=== PATIENT | female | born 1965 | race Caucasian/White ===

== ENCOUNTER → 2016-06-08 | Outpatient (CLI) | payer BC ==
--- NOTE | 2016-06-09 10:59 | ECHOF ---
Referral Reason:R01.1 Cardiac murmur, unspecified MEASUREMENTS -------- HEIGHT: 157.5 cm WEIGHT: 72.6 kg BP: RVIDd: 2.4 cm (< 3.3) IVSd: 1.0 cm (0.6 - 1.1) LVIDd: 4.1 cm (3.9 - 5.3) LVPWd: 0.9 cm (0.6 - 1.1) IVSs: 1.1 cm LVIDs: 3.5 cm LVPWs: 0.9 cm LA Diam: 3.0 cm (2.7 - 3.8) LAESV Index (A-L): 26.68 ml/m Ao Diam: 2.3 cm (2.0 - 3.7) AV Cusp: 1.7 cm (1.5 - 2.6) LA Diam: 3.6 cm (2.7 - 3.8) MV EXCURSION: 15.488 mm (> 18.000) MV EF SLOPE: 145 mm/s (70 - 150) EPSS: 0.4 cm MV E Osman: 0.92 m/s MV DecT: 169 ms MV A Osman: 0.68 m/s MV E/A Ratio: 1.36 RAP: 5.00 mmHg RVSP: 16.46 mmHg FINDINGS -------- Sinus rhythm. This was a technically good study. . There is normal global left ventricular contractility. Overall left ventricular systolic function is low-normal with, an EF between 50 - 55 %. The right ventricle is normal in size. LA is moderately dilated 34-39 ml/m2 The right atrial size is normal. There is mild aortic valve sclerosis. There is no evidence of aortic regurgitation. Mild mitral annular calcification present. Mild mitral regurgitation is present. Mild tricuspid regurgitation present. There is no evidence of pulmonary hypertension. The right ventricular systolic pressure, as measured by Doppler, is 16.46mmHg. There is no pulmonic regurgitation present. The aortic root size is normal. There is no pericardial effusion. CONCLUSIONS -------- 1. LV size, wall thickness and systolic function are normal, with an EF greater than 55%. 2. LA is moderately dilated 34-39 ml/m2 3. There is mild aortic valve sclerosis. 4. Mild mitral annular calcification present. 5. Mild mitral regurgitation is present. 6. Mild tricuspid regurgitation present. 7. There is no evidence of pulmonary hypertension. 8. The right ventricular systolic pressure, as measured by Doppler, is 16.46mmHg. SUPERINTENDENT QUARRY: Giuliana Velásquez RDCS
== END | disposition home or self-care (01) ==
LOC: RADECHMAIN 15:09
PROVIDERS: ATTEND Family Medicine
DX: I08.1 Rheumatic disorders of both mitral and tricuspid valves (principal); I70.0 Atherosclerosis of aorta
CPT/HCPCS: 93306

== ENCOUNTER → 2016-07-18 | Outpatient (CLI) | payer BC ==
--- NOTE | 2016-07-18 16:12 | XR ---
EXAMINATION TYPE: XR chest 2V DATE OF EXAM: 07/18/2016 3:53 PM COMPARISON: 02/10/2010 TECHNIQUE: PA and lateral views submitted. HISTORY: Cough FINDINGS: The lungs are clear and there is no pneumothorax, pleural effusion, or focal pneumonia. Hypertrophi c change of the spine noted. IMPRESSION: 1. No acute process.
--- NOTE | 2016-07-19 08:44 | BD ---
EXAMINATION TYPE: MG DEXA axial skeleton. DATE OF EXAM: 07/18/2016 4:10 PM COMPARISON: NONE CLINICAL HISTORY: Postmenopausal female. Height: 61.5 IN Weight: 169 LBS FRAX RISK QUESTIONS: Alcohol (3 or more units per day): NO Family History (Parent hip fracture): NO Glucocorticoids (More than 3mos): YES (Ex: prednisone, prednisolone, methylprednisolone, dexamethasone, and hydrocortisone). History of Fracture in Adulthood: NO Secondary Osteoporosis: 1. Type 1 Diabetes: NO 2. Hyperthyroidism: NO 3. Menopause before 45: NO 4. Malnutrition: NO 5. Chronic liver disease: NO Rheumatoid Arthritis: NO Current Tobacco Use: NO RISK FACTORS HISTORY OF: Active: YES Diet low in dairy products/other sources of calcium: YES If Premenopausal, do you have irregular periods: NO Take estrogen and/or progesterone medications: YES How long: NUVA RING 10 MONTHS MEDICATIONS: Prednisone or other steroids: YES 10 MG DAILY How Lon YRS Additional Medications: PREDNISONE, LISINOPRIL, HCTZ, EXAM MEASUREMENTS: Bone mineral densitometry was performed using the [employer] System. Bone mineral density as measured about the Lumbar spine is: ----- L1-L4(G/cm2): 1.334 T Score Values are as follows: ----- L2: 1.3 ----- L3: 1.1 ----- L4: 1.4 ----- L1-L4: 1.3 Bone mineral density BASELINE Bone mineral density about the R hip (g/cm2): 1.107 Bone mineral density about the L hip (g/cm2): 1.107 T Score values are as follows: -----R Neck: 0.5 -----L Neck: 0.5 -----R Intertrochanter: 0.6 -----L Intertrochanter: 1.1 Bone mineral density BASELINE IMPRESSION: Normal (Values between +1 and -1 indicate normal bone mass) NOTE: T-SCORE=SD OF THE YOUNG ADULT MEAN.
== END | disposition home or self-care (01) ==
LOC: RADBDWWP 15:34
PROVIDERS: ATTEND Internal Medicine Rheumatology
DX: R05 Cough (principal); M19.90 Unspecified osteoarthritis, unspecified site; Z79.899 Other long term (current) drug therapy; M81.0 Age-related osteoporosis without current pathological fracture
CPT/HCPCS: 71020; 77080

== ENCOUNTER → 2016-07-28 | Outpatient (CLI) | payer BC ==
--- NOTE | 2016-07-28 23:30 | MR ---
EXAMINATION TYPE: MR pelvis wo con DATE OF EXAM: 07/28/2016 9:04 PM COMPARISON: NONE HISTORY: Low back/yvette hip pain, OA Standard multiplanar, multisequence MRI departmental protocol Multiplanar, multisequence images of the pelvis were acquired. FINDINGS: The pelvic ring appears intact. The proximal femurs and hip joints are intact. There is no sign of avascular necrosis. The sacroiliac joints appear normal. There is no evidence of a pelvic mas s. There is no free fluid in the pelvis. Sacrum appears normal. I see no bony destructive process. Ur inary bladder and uterus appear normal. There is mild symmetric acetabular spurring. IMPRESSION: Mild acetabular spurring. No fracture. No evidence of avascular necrosis or hip dysplasia.
== END | disposition home or self-care (01) ==
LOC: RADMRIMAIN 20:02
PROVIDERS: ATTEND Internal Medicine Rheumatology
DX: M77.9 Enthesopathy, unspecified (principal); M19.90 Unspecified osteoarthritis, unspecified site
CPT/HCPCS: 72195

== ENCOUNTER → 2016-08-30 | Outpatient (CLI) | payer BC ==
--- NOTE | 2016-08-30 09:24 | MM ---
Reason for exam: screening (asymptomatic). Last mammogram was performed 1 year ago. History: Family history of breast cancer in 2 maternal aunts. Took hormonal contraceptives for 6 years 1 month beginning at age 38. Physical Findings: A clinical breast exam by your physician is recommended on an annual basis and results should be correlated with mammographic findings. MG Screening Mammo w CAD Bilateral CC and MLO view(s) were taken. Prior study comparison: August 24, 2015, bilateral MG screening mammo w CAD. May 19, 2014, bilateral MG diagnostic mammo w CAD TENZIN. The breast tissue is heterogeneously dense. This may lower the sensitivity of mammography. No suspicious calcifications are seen. Stable retroareolar nodularity. ASSESSMENT: Benign, BI-RAD 2 RECOMMENDATION: Routine screening mammogram of both breasts in 1 year.
--- NOTE | 2016-08-30 10:03 | WWHP ---
DATE OF SERVICE: 08/30/2016 CHIEF COMPLAINT: The patient is here for her routine gynecologic exam and mammogram. HPI: This is a 51-year-old G5, P5 with an LMP of 08/11/16. She has been on the NuvaRing for about one year. She has used this for hypermenorrhea and control. She states she has done well with it. Her periods are less heavy with the NuvaRing. She is without complaints. PAST MEDICAL HISTORY: Polymyalgia rheumatica and possible ankylosing spondylitis. Also chronic hypertension and history of asthma, currently not requiring medication. MEDICATIONS: 1. Humira injections q.2 weeks, which was recently started. 2. She is weaning off of prednisone and is on 5 mg per day at this time. 3. Lisinopril 1 daily. 4. Calcium supplement daily. 5. NuvaRing as directed. Allergies to CT SCAN DYE. Past surgical, PATIENT MONITOR, and family histories are unchanged from the 2016 H&P. SOCIAL HISTORY: She denies tobacco and drug use and has about 3 alcoholic drinks every 2 weeks. 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 REVIEW OF SYSTEMS: Weight has been stable. She denies respiratory or cardiac problems. She has had chronic diarrhea for several years. PHYSICAL EXAM: Blood pressure 126/74. Height 5 feet 2 inches. Weight 176 pounds. Temperature 96.6, pulse 81. This a well-developed, well-nourished white female who is alert and oriented x3 in no acute distress. HEENT is within normal limits. NECK: Supple without mass or thyromegaly. CHEST AND LUNGS: Clear to auscultation. HEART: Regular rate and rhythm. Breasts are without mass or discharge. Axillary exam is negative for adenopathy. BACK: Negative for CVA tenderness. ABDOMEN: Soft, nontender, without palpable masses. PELVIC EXAM: Normal external genitalia. Cervix and vagina appear normal. There is no evidence of prolapse. The uterus is midposition, nongravid size and nontender. There are no palpable adnexal masses or tenderness. Rectovaginal exam is negative for mass or tenderness and is negative for occult blood. EXTREMITIES: Nontender. IMPRESSION: 1. A 51-year-old female with history of hypermenorrhea, improved with the NuvaRing. 2. Normal gynecologic exam. 3. Possible perimenopause based on her age. PLAN: 1. Pap smear was deferred, since she had a normal one last year. 2. Self breast examination was discussed. 3. Mammogram will be done today. 4. We have discussed ways of determining whether she is menopausal or not. She will do an FSH test after at least one week of not having the NuvaRing. She understands that if she goes more than one week without the NuvaRing in she may not be protected from and she should use an alternate method if she does this. We will consider discontinuing the NuvaRing if the FSH is greater than 50. An order for the FSH was given to patient as well as a prescription for the NuvaRing for the upcoming year. 5. Osteoporosis prevention was discussed. 6. She will return in one year and p.r.n.
== END | disposition home or self-care (01) ==
LOC: WWCWWP 08:22
PROVIDERS: ATTEND Obstetrics & Gynecology
DX: Z12.31 Encounter for screening mammogram for malignant neoplasm of breast (principal)

== ENCOUNTER → 2017-07-03 | Outpatient (CLI) | payer BC ==
--- NOTE | 2017-07-03 11:05 | XR ---
EXAMINATION TYPE: XR foot complete RT DATE OF EXAM: 07/03/2017 CLINICAL HISTORY: Right foot pain TECHNIQUE: Frontal, lateral, and oblique images of the right foot are obtained. COMPARISON: None FINDINGS: There is no acute fracture/dislocation evident in the right foot. The joint spaces in the right foot appear within normal limits. The overlying soft tissue appears unremarkable. Small plant ar enthesophyte/heel spur is present. Mild hallux valgus deformity of the first digit. IMPRESSION: 1. There is no acute fracture or dislocation in the right foot. 2. Small plantar heel spur.
[2017-07-03 11:22] LABS: HCT 40.9 % (34.0-46.0); HGB 13.5 gm/dL (11.4-16.0); MCH 31.5 pg (25.0-35.0); MCHC 33.1 g/dL (31.0-37.0); MCV 95.1 fL (80.0-100.0); Mean Platelet Volume 7.3; Platelet Count 287 k/uL (150-450); RBC 4.29 m/uL (3.80-5.40); RDW 12.1 % (11.5-15.5); WBC 9.8 k/uL (3.8-10.6)
[2017-07-03 11:39] LABS: Anion Gap 11 mmol/L; Blood Urea Nitrogen 17 mg/dL (7-17); C Reactive Protein 11.4 mg/L (<10.0); Calcium 9.8 mg/dL (8.4-10.2); Carbon Dioxide 29 mmol/L (22-30); Chloride 101 mmol/L (98-107); Glucose 106 mg/dL (74-99); Potassium 3.7 mmol/L (3.5-5.1); Sodium 141 mmol/L (137-145)
[2017-07-03 13:10] LABS: Erythrocyte Sedimentation Rate 18 mm/hr (0-20)
[2017-07-03 16:45] LABS: Hemoglobin A1C 5.8 % (4.0-6.0)
== END | disposition home or self-care (01) ==
LOC: RADXRMAIN 10:23
PROVIDERS: ATTEND Internal Medicine Rheumatology
DX: M77.31 Calcaneal spur, right foot (principal); M35.3 Polymyalgia rheumatica
CPT/HCPCS: 36415; 80048; 83036; 85027; 85652; 86140

== ENCOUNTER → 2017-10-16 | Outpatient (CLI) | payer BC ==
[2017-10-16 13:13] VITALS: BP 101/68; PULSE 63; TEMP 98.5; BMI 30.5
--- NOTE | 2017-10-16 13:50 | P.HPOB ---
History of Present Illness H&P Date: 10/16/17 Chief Complaint: The patient is here for her routine gynecologic exam and mammogram. This is a 52 year old with an LMP of 10/03/17. The patient has been on a progestin only oral contraceptive for control. She states she is doing well with this. She does have regular menses every 26 days. She is without gynecologic complaints. Review of Systems The patient has lost 9 pounds over the last year. She denies respiratory, cardiac, or G.I. problems. Past Medical History Past Medical History: Asthma, Hypertension Additional Past Medical History / Comment(s): IBS, polymyalgia rheumatic. 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 History of Any Multi-Drug Resistant Organisms: None Reported Past Surgical History: Hernia Repair, Tonsillectomy Additional Past Surgical History / Comment(s): Bilateral Lasix, bilateral carpal tunnel release, cystoscopy, colonoscopy 2007, laparoscopic ovarian cystectomy 1989, LASIK eye surgery. 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 - Past Family History Father Family Medical History: Myocardial Infarction ([place]) Additional Family Medical History / Comment(s): Great maternal aunt had breast cancer. Medications and Allergies Home Medications and Allergies Comment(s): She is also taking Micronor (generic) one daily. Home Medications Medication Instructions Recorded Confirmed Type Hydrochlorothiazide 12.5 mg PO DAILY 03/08/16 10/16/17 History Lisinopril [Zestril] 10 mg PO DAILY 03/08/16 10/16/17 History predniSONE mg PO DAILY 03/08/16 03/08/16 History Norethindrone [Ortho Micronor] 0.35 mg PO 10/16/17 History Tofacitinib Citrate [Xeljanz Xr] mg PO DAILY 10/16/17 History Allergies Allergy/AdvReac Type Severity Reaction Status Date / Time Iodinated Contrast- Oral and AdvReac Unknown Verified 10/16/17 13:00 IV Dye [Iodinated Contrast Media - IV Dye] Exam - Vital Signs Vital signs: Vital Signs Temp Pulse BP 10/16/17 13:00 98.5 F 63 101/68 Intake and Output 10/15/17 10/16/17 10/16/17 22:59 06:59 14:59 Other: Weight 75.75 kg Height 5'2", BMI 30.5. This is a well-developed well-nourished white female who is alert and oriented times 3 in no acute distress. HEENT: Within normal limits. NECK: Supple without mass or thyromegaly. CHEST AND LUNGS: Clear to auscultation. HEART: Regular rate and rhythm. BREASTS: Are without mass or discharge. AXILLARY EXAM: Negative for adenopathy. BACK: Negative for CVA tenderness. ABDOMEN: Soft, nontender, without palpable masses. PELVIC EXAM: Normal external genitalia with minimal atrophy. Cervix and vagina appear normal with minimal atrophy. There is no unusual discharge. There is no evidence of prolapse. The uterus is midposition, nongravid size and nontender. There are no palpable adnexal masses or tenderness. RECTAL EXAM: rectovaginal exam is negative for mass or tenderness and is negative for occult blood. EXTREMITIES: Nontender. IMPRESSION: 1. 52-year-old female with normal gynecologic exam who is doing well on the progestin only pills. 2. Premenopausal female. PLAN: 1. Pap smear was performed. 2. Self breast awareness was discussed. 3. Screening mammogram will be done today. 4. She will continue on the progestin only -control pills at this time. If she becomes amenorrhea on the pills, we will reevaluate and consider checking an FSH. 5. Osteoporosis prevention was discussed. 6. She will return in one year.
--- NOTE | 2017-10-17 10:53 | MM ---
Reason for exam: screening (asymptomatic). Last mammogram was performed 1 year and 2 months ago. History: Family history of breast cancer in 2 maternal aunts. Took hormonal contraceptives for 6 years 1 month beginning at age 38. Physical Findings: A clinical breast exam by your physician is recommended on an annual basis and results should be correlated with mammographic findings. MG Screening Mammo w CAD Bilateral CC and MLO view(s) were taken. Prior study comparison: August 30, 2016, bilateral MG screening mammo w CAD. August 24, 2015, bilateral MG screening mammo w CAD. The breast tissue is heterogeneously dense. This may lower the sensitivity of mammography. There is chronic nodularity in the left breast subareolr level. There is no discrete abnormality. ASSESSMENT: Benign, BI-RAD 2 RECOMMENDATION: Routine screening mammogram of both breasts in 1 year.
== END | disposition home or self-care (01) ==
LOC: WWCWWP 12:42
PROVIDERS: ATTEND Obstetrics & Gynecology
DX: Z12.31 Encounter for screening mammogram for malignant neoplasm of breast (principal)
CPT/HCPCS: 77067

== ENCOUNTER → 2018-10-29 | Outpatient (CLI) | payer BC ==
[2018-10-29 09:22] LABS: Basophils # (A) 0.1 k/uL (0-0.2); Basophils % (A) 1 %; Eosinophils # (A) 0.1 k/uL (0-0.7); Eosinophils % (A) 1 %; HCT 41.9 % (34.0-46.0); HGB 13.8 gm/dL (11.4-16.0); Lymphocytes # (A) 1.4 k/uL (1.0-4.8); Lymphocytes % (A) 15 %; MCH 31.1 pg (25.0-35.0); MCHC 32.8 g/dL (31.0-37.0); MCV 94.7 fL (80.0-100.0); Mean Platelet Volume 7.4; Monocytes # (A) 0.4 k/uL (0-1.0); Monocytes % (A) 5 %; Neutrophils % (A) 77 %; Platelet Count 301 k/uL (150-450); RBC 4.43 m/uL (3.80-5.40); WBC 9.1 k/uL (3.8-10.6)
[2018-10-29 11:09] LABS: Erythrocyte Sedimentation Rate 8 mm/hr (0-20)
[2018-10-29 16:00] LABS: ALT 23 U/L (8-44); AST 26 U/L (13-35); C Reactive Protein <0.4 mg/dL (0.0-0.8); Calcium 9.9 mg/dL (8.7-10.3); Carbon Dioxide 28.2 mmol/L (21.6-31.8); Chloride 105 mmol/L (96-109); Glucose 116 mg/dL (70-110); Potassium 4.5 mmol/L (3.5-5.5); Sodium 139 mmol/L (135-145)
== END | disposition home or self-care (01) ==
LOC: LABWHC1 08:41
PROVIDERS: ATTEND Family Medicine
DX: E87.6 Hypokalemia (principal); M06.09 Rheumatoid arthritis without rheumatoid factor, multiple sites
CPT/HCPCS: 36415; 80048; 84450; 84460; 85025; 85652; 86140

== ENCOUNTER → 2019-01-07 | Outpatient (CLI) | payer BC ==
[2019-01-07 12:59] VITALS: BP 116/74; PULSE 62; RESP 16; TEMP 98.6; BMI 32.1
--- NOTE | 2019-01-07 13:40 | P.HPOB ---
History of Present Illness H&P Date: 01/07/19 Chief Complaint: The patient is here for her routine gynecologic exam and ma mmogram. This is a 53-year-old with an LMP of 10/13/2018. The patient is on Micronor for control. Herb menstrual periods were regular every month on Micronor, but during the past year, the menstrual periods have been approximately every 3 months. She has had the occasional warm flashes, but nothing very severe. She is without gynecologic complaints. Review of Systems The patient has gained 9 pounds over the last year. She denies respiratory, cardiac, or G.I. problems. Past Medical History Past Medical History: Asthma, Hypertension Additional Past Medical History / Comment(s): IBS, polymyalgia rheumatic. 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 History of Any Multi-Drug Resistant Organisms: None Reported Past Surgical History: Hernia Repair, Tonsillectomy Additional Past Surgical History / Comment(s): Bilateral Lasix, bilateral carpal tunnel release, cystoscopy, colonoscopy 2007, laparoscopic ovarian cystectomy 1989, LASIK eye surgery. 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 - Past Family History Father Family Medical History: Myocardial Infarction ([place]) Additional Family Medical History / Comment(s): Great maternal aunt had breast cancer. Medications and Allergies Home Medications Medication Instructions Recorded Confirmed Type Hydrochlorothiazide 12.5 mg PO DAILY 03/08/16 01/07/19 History Lisinopril [Zestril] 10 mg PO DAILY 03/08/16 01/07/19 History predniSONE 5 mg PO DAILY 03/08/16 01/07/19 History Norethindrone [Ortho Micronor] 0.35 mg PO DAILY #90 tablet 10/16/17 01/07/19 Rx Tofacitinib Citrate [Xeljanz Xr] 11 mg PO DAILY 10/16/17 01/07/19 History Potassium Chloride [Klor-Con 20 20 meq PO DAILY 01/07/19 01/07/19 History Packets] Allergies Allergy/AdvReac Type Severity Reaction Status Date / Time Iodinated Contrast- Oral and AdvReac Unknown Verified 01/07/19 12:59 IV Dye [Iodinated Contrast Media - IV Dye] Exam Vital Signs Temp Pulse Resp BP Pulse Ox 01/07/19 12:56 98.6 F 62 16 116/74 99 Intake and Output 01/06/19 01/07/19 01/07/19 22:59 06:59 14:59 Other: Weight 79.832 kg Height 5'2", weight 176 pounds, BMI 32.2. This is a well-developed well-nourished white female who is alert and oriented times 3 in no acute distress. HEENT: Within normal limits. NECK: Supple without mass or thyromegaly. CHEST AND LUNGS: Clear to auscultation. HEART: Regular rate and rhythm. BREASTS: Are without mass or discharge. AXILLARY EXAM: Negative for adenopathy. BACK: Negative for CVA tenderness. ABDOMEN: Soft, nontender, without palpable masses. PELVIC EXAM: Normal external genitalia. Cervix and vagina appear normal. There is no unusual discharge. There is no evidence of prolapse. The uterus is midposition, nongravid size and nontender. There are no palpable adnexal masses or tenderness. RECTAL EXAM: rectovaginal exam is negative for mass or tenderness and is negative for occult blood. EXTREMITIES: Nontender. IMPRESSION: 1. 53-year-old perimenopausal female with recent oligomenorrhea on Micronor. 2. Normal gynecologic exam. PLAN: 1. Pap smear was deferred since she had a normal one on 10/16/2017. 2. Self breast awareness was discussed with the patient. 3. Screening mammogram will be done today. 4. Osteoporosis prevention was discussed. I have stressed the importance of adequate calcium, vitamin D and regular exercise. Recommended amounts of calcium and vitamin D were also discussed. 5. Colonoscopy is due. She states she is scheduled to do this in March of this year. 6. We have discussed the option of discontinuing Micronor and using condoms for control until one year of amenorrhea. She would like to continue on the Micronor at this time. She will keep track of her menstrual periods. After one year of amenorrhea on Micronor, I have recommended that we do a FSH test off of the pill to confirm a menopausal status since there are times when pre- menopausal women can be amenorrheic on the progestin only pills. 7. She was advised to return in one year for her annual well woman exam.
--- NOTE | 2019-01-09 11:40 | MM ---
Reason for exam: screening (asymptomatic). Last mammogram was performed 1 year and 3 months ago. History: Family history of breast cancer in 2 maternal aunts. Took hormonal contraceptives for 6 years 1 month beginning at age 38. Physical Findings: A clinical breast exam by your physician is recommended on an annual basis and results should be correlated with mammographic findings. MG 3D Screening Mammo W/Cad Bilateral CC and MLO view(s) were taken. Prior study comparison: October 16, 2017, bilateral MG screening mammo w CAD. August 30, 2016, bilateral MG screening mammo w CAD. Focal asymmetry right CC, summation on tomosynthesis No significant changes when compared with prior studies. ASSESSMENT: Benign, BI-RAD 2 RECOMMENDATION: Routine screening mammogram of both breasts in 1 year.
== END | disposition home or self-care (01) ==
LOC: WWCWWP 12:21
PROVIDERS: ATTEND Obstetrics & Gynecology
DX: Z12.31 Encounter for screening mammogram for malignant neoplasm of breast (principal)
CPT/HCPCS: 77063; 77067

== ENCOUNTER → 2019-04-02 | Day surgery (SDC) | payer BC ==
[2019-04-01 09:31] VITALS: BMI 31.1
[~2019-04-02] MED LIST: LACTATED RINGERS 1,000 ML IV SCH; LIDOCAINE 1% 20 ML VIAL (10MG/ML) FOR IV START INTRADERMA PRN; PROPOFOL 10 MG/ML 20 ML VIAL IV ONE
[2019-04-02 10:20] LABS: Glucose,Whole Blood 105 mg/dL (75-99)
[2019-04-02 10:25] VITALS: TEMP 96.9
--- NOTE | 2019-04-02 10:51 | P.PCN ---
Date of Procedure: 04/02/19 Procedure(s) Performed: BRIEF HISTORY: Patient is a 53-year-old pleasant white female scheduled for an elective colonoscopy as a part of screening for colorectal neoplasia. PROCEDURE PERFORMED: Colonoscopy. PREOPERATIVE DIAGNOSIS: Screening for colon cancer. IV sedation per Anesthesia. PROCEDURE: After informed consent was obtained, the patient, was brought into the endoscopy unit. IV sedation was administered by Anesthesia under continuous monitoring. Digital rectal examination was normal. Initially the Olympus CF-160 flexible video colonoscope was then inserted in the rectum, gradually advanced into the cecum without any difficulty. Careful examination was performed as the scope was gradually being withdrawn. Ileocecal valve and the appendiceal orifice were visualized and appeared normal. Prep was excellent. Mucosa of the cecum, ascending colon, transverse colon, descending colon, sigmoid colon, and rectum appeared normal. Retroflexion was performed in the rectum and no lesions were seen. The patient tolerated the procedure well. IMPRESSION: Normal-appearing colon from rectum to cecum no evidence of colorectal neoplasia. RECOMMENDATIONS: Findings of this examination were discussed with the patient as well as a family. She was advised to have a repeat screen coloscopy in 10 years.
[2019-04-02 11:09] VITALS: BP 116/73; PULSE 68; RESP 18
== END ==
LOC: ORWHC2ENDO 09:50
PROVIDERS: ATTEND Internal Medicine Gastroenterology
DX: Z12.11 Encounter for screening for malignant neoplasm of colon (principal); Z79.3 Long term (current) use of hormonal contraceptives; Z79.899 Other long term (current) drug therapy; I10 Essential (primary) hypertension; Z91.041 Radiographic dye allergy status
CPT/HCPCS: 81025; J2704; G0121; 45378

== ENCOUNTER → 2020-02-18 | Outpatient (CLI) | payer BC ==
[2020-02-18 11:56] VITALS: BP 123/79; PULSE 55; RESP 18; TEMP 98.2
--- NOTE | 2020-02-18 12:36 | P.HPOB ---
History of Present Illness H&P Date: 02/18/20 Chief Complaint: The patient is here for her routine gynecologic exam and ma mmogram. This is a 54-year-old with an LMP of June 2019. The patient previously was using Micronor for control. She previously had light monthly menstrual periods with the Micronor, but after June of this year, she stopped having menstrual periods and discontinued the Micronor in October of this year. She continues to have no menstrual periods and is now experiencing hot flashes with night sweats. These are tolerable and she actually doesn't mind them because she previously was typically cold much of the day. She is without complaints. Review of Systems The patient's weight has been stable over the last year. She denies respiratory, cardiac, or G.I. problems. Past Medical History Past Medical History: Asthma, Hypertension Additional Past Medical History / Comment(s): IBS, polymyalgia rheumatic. PAST OFFICE EXECUTIVE HISTORY: She has no history of STDs. History of Any Multi-Drug Resistant Organisms: None Reported Past Surgical History: Hernia Repair, Tonsillectomy Additional Past Surgical History / Comment(s): Bilateral Lasix eye sx, bilateral carpal tunnel release, cystoscopy, laparoscopic ovarian cystectomy 1989. Colonoscopy 2019(next aft4er 10yr). 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 - Past Family History Father Family Medical History: Myocardial Infarction ([place]) Additional Family Medical History / Comment(s): Great maternal aunt had breast cancer. Medications and Allergies Home Medications Medication Instructions Recorded Confirmed Type predniSONE 5 mg PO DAILY 03/08/16 02/18/20 History Potassium Chloride [Klor-Con 20 20 meq PO DAILY 01/07/19 02/18/20 History Packets] Lisinopril-Hctz 10-12.5 mg 1 tab PO DAILY 04/01/19 02/18/20 History [Zestoretic 10-12.5] Calcium Carbonate [Calcium] 600 mg PO DAILY 02/18/20 02/18/20 History Cholecalciferol [Vitamin D3 (25 2,000 unit PO DAILY 02/18/20 02/18/20 History Mcg = 1000 Iu)] Upadacitinib [Rinvoq ER] 15 mg PO QAM 02/18/20 02/18/20 History Allergies Allergy/AdvReac Type Severity Reaction Status Date / Time Iodinated Contrast Media AdvReac hives Verified 02/18/20 11:49 [Iodinated Contrast Media - IV Dye] Exam Vital Signs Temp Pulse Resp BP Pulse Ox 02/18/20 11:51 98.2 F 55 L 18 123/79 99 Intake and Output 02/17/20 02/18/20 02/18/20 22:59 06:59 14:59 Other: Weight 79.832 kg Height 5 feet 2 inches, weight 176 pounds, BMI 32.2. This is a well-developed well-nourished white female who is alert and oriented times 3 in no acute distress. HEENT: Within normal limits. NECK: Supple without mass or thyromegaly. CHEST AND LUNGS: Clear to auscultation. HEART: Regular rate and rhythm. BREASTS: Are without mass or discharge. AXILLARY EXAM: Negative for adenopathy. BACK: Negative for CVA tenderness. ABDOMEN: Soft, nontender, without palpable masses. PELVIC EXAM: Normal external genitalia. Cervix and vagina appear normal. There is no unusual discharge. There is no evidence of prolapse. The uterus is midposition, nongravid size and nontender. There are no palpable adnexal masses or tenderness. RECTAL EXAM: Rectovaginal exam is negative for mass or tenderness and is negative for occult blood. EXTREMITIES: Nontender. IMPRESSION: 1. 54-year-old perimenopausal female with oligomenorrhea and vasomotor symptoms with normal gynecologic exam. 2. She has discontinued Micronor progestin only control pills and continues to be amenorrheic. PLAN: 1. Pap smear was performed. 2. Self breast awareness was discussed with the patient. 3. Screening mammogram will be done today. 4. FSH will be drawn. The order slip was given to the patient for this. After doing this, we will determine whether she will need to continue some type of control. In the meantime I have recommended that she use condoms since it may be is a small chance of getting . 5. Osteoporosis prevention was discussed. I have stressed the importance of adequate calcium, vitamin D and regular exercise. Recommended amounts of calcium and vitamin D were also discussed. She had a normal bone density test in 2017 and we will plan on repeating this at age 60. 6. She was advised to return in one year for her annual well woman exam.
--- NOTE | 2020-02-19 14:35 | MM ---
Reason for exam: screening (asymptomatic). Last mammogram was performed 1 year and 1 month ago. History: Family history of breast cancer in 2 maternal aunts. Took hormonal contraceptives for 6 years 1 month beginning at age 38. Physical Findings: A clinical breast exam by your physician is recommended on an annual basis and results should be correlated with mammographic findings. MG 3D Screening Mammo W/Cad Bilateral CC and MLO view(s) were taken. Prior study comparison: January 07, 2019, bilateral MG 3d screening mammo w/cad. October 16, 2017, bilateral MG screening mammo w CAD. The breast tissue is heterogeneously dense. This may lower the sensitivity of mammography. There is no discrete abnormality. No significant changes when compared with prior studies. ASSESSMENT: Negative, BI-RAD 1 RECOMMENDATION: Routine screening mammogram of both breasts in 1 year.
== END | disposition home or self-care (01) ==
LOC: WWCWWP 11:12
PROVIDERS: ATTEND Obstetrics & Gynecology
DX: Z12.31 Encounter for screening mammogram for malignant neoplasm of breast (principal)
CPT/HCPCS: 77063; 77067

== ENCOUNTER 2020-04-07 05:34 | Emergency (ER) | payer BC, OTHER ==
[2020-04-07] MEDS ORDERED: KETOROLAC 15 MG/ML 1 ML VIAL IVP STA (05:39)
--- NOTE | 2020-04-07 05:50 | ED ---
Abdominal Pain HPI - General Stated Complaint: Left flank pain Time Seen by Provider: 04/07/20 05:39 Source: patient Mode of arrival: ambulatory Limitations: no limitations - History of Present Illness Complaint: flank pain Onset/Timin -: hour(s) Location: L flank Radiation: none Migration to: no migration Severity: moderate Quality: stabbing, aching Consistency: constant Improves With: nothing Worsens With: nothing Associated Symptoms: nausea - Related Data Patient : No Home Medications Medication Instructions Recorded Confirmed predniSONE 5 mg PO DAILY 03/08/16 02/18/20 Potassium Chloride [Klor-Con 20 20 meq PO DAILY 01/07/19 02/18/20 Packets] Lisinopril-Hctz 10-12.5 mg 1 tab PO DAILY 04/01/19 02/18/20 [Zestoretic 10-12.5] Calcium Carbonate [Calcium] 600 mg PO DAILY 02/18/20 02/18/20 Cholecalciferol [Vitamin D3 (25 2,000 unit PO DAILY 02/18/20 02/18/20 Mcg = 1000 Iu)] Upadacitinib [Rinvoq ER] 15 mg PO QAM 02/18/20 02/18/20 Previous Rx's Medication Instructions Recorded Hydrocodone/Acetaminophen [[place] 1 each PO Q6HR PRN #20 tab 04/07/20 5-325] Ketorolac [Toradol] 10 mg PO TID #15 tab 04/07/20 Ondansetron Odt [Zofran ODT] 4 mg PO Q8HR PRN #10 tab 04/07/20 Tamsulosin [Flomax] 0.4 mg PO DAILY #14 cap 04/07/20 Allergies Allergy/AdvReac Type Severity Reaction Status Date / Time Iodinated Contrast Media AdvReac hives Verified 02/18/20 11:49 [Iodinated Contrast Media - IV Dye] Review of Systems ROS Statement: Those systems with pertinent positive or pertinent negative responses have been documented in the HPI. ROS Other: All systems not noted in ROS Statement are negative. Constitutional: Denies: fever, chills Respiratory: Denies: cough, dyspnea Cardiovascular: Denies: chest pain, palpitations Gastrointestinal: Reports: abdominal pain, nausea. Denies: vomiting, diarrhea, constipation, melena, hematochezia Genitourinary: Reports: frequency. Denies: dysuria, hematuria Musculoskeletal: Denies: back pain Skin: Denies: rash Neurological: Denies: headache, weakness, numbness Past Medical History Past Medical History: Asthma, Hypertension Additional Past Medical History / Comment(s): IBS, polymyalgia rheumatic. 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 History of Any Multi-Drug Resistant Organisms: None Reported Past Surgical History: Hernia Repair, Tonsillectomy Additional Past Surgical History / Comment(s): Bilateral Lasix eye sx, bilateral carpal tunnel release, cystoscopy, laparoscopic ovarian cystectomy 1989. Colonoscopy 2019(next aft4er 10yr). Past Anesthesia/Blood Transfusion Reactions: No Reported Reaction Past Psychological History: No Psychological Hx Reported Smoking Status: Never smoker Past Alcohol Use History: Occasional Past Drug Use History: None Reported - Past Family History Father Family Medical History: Myocardial Infarction ([place]) Additional Family Medical History / Comment(s): Great maternal aunt had breast cancer. General Exam Limitations: no limitations General appearance: alert, in no apparent distress Head exam: Present: atraumatic, normocephalic Eye exam: Present: normal appearance. Absent: scleral icterus, conjunctival injection ENT exam: Present: normal oropharynx Neck exam: Present: normal inspection Respiratory exam: Present: normal lung sounds bilaterally. Absent: respiratory distress, wheezes, rales, rhonchi, stridor Cardiovascular Exam: Present: regular rate, normal rhythm, normal heart sounds. Absent: systolic murmur, diastolic murmur, rubs, gallop GI/Abdominal exam: Present: soft, normal bowel sounds. Absent: distended, tenderness, guarding, rebound, rigid, mass, pulsatile mass, hernia Extremities exam: Present: normal inspection, normal capillary refill. Absent: pedal edema, calf tenderness Back exam: Present: normal inspection, CVA tenderness (L). Absent: CVA tenderness (R) Neurological exam: Present: alert Skin exam: Present: warm, dry, intact, normal color. Absent: rash Course Vital Signs 04/07/20 04/07/20 05:38 06:34 Temperature 98.8 F Pulse Rate 79 77 Respiratory 18 16 Rate Blood Pressure 150/82 134/75 O2 Sat by Pulse 99 99 Oximetry Medical Decision Making - Lab Data Result diagrams: 04/07/20 05:49 04/07/20 05:49 Lab Results 04/07/20 04/07/20 04/07/20 Range/Units 05:49 05:49 05:49 WBC 11.4 H (3.8-10.6) k/uL RBC 3.91 (3.80-5.40) m/uL Hgb 12.6 (11.4-16.0) gm/dL Hct 39.7 (34.0-46.0) % MCV 101.5 H (80.0-100.0) fL MCH 32.1 (25.0-35.0) pg MCHC 31.7 (31.0-37.0) g/dL RDW 13.9 (11.5-15.5) % Plt Count 271 (150-450) k/uL Neutrophils % 76 % Lymphocytes % 16 % Monocytes % 6 % Eosinophils % 0 % Basophils % 0 % Neutrophils # 8.7 H (1.3-7.7) k/uL Lymphocytes # 1.8 (1.0-4.8) k/uL Monocytes # 0.7 (0-1.0) k/uL Eosinophils # 0.1 (0-0.7) k/uL Basophils # 0.0 (0-0.2) k/uL Macrocytosis Slight Sodium 136 L (137-145) mmol/L Potassium 3.5 (3.5-5.1) mmol/L Chloride 104 (98-107) mmol/L Carbon Dioxide 25 (22-30) mmol/L Anion Gap 7 mmol/L BUN 19 H (7-17) mg/dL Creatinine 1.15 H (0.52-1.04) mg/dL Est GFR (CKD-EPI)AfAm 62 (>60 ml/min/1.73 sqM) Est GFR (CKD-EPI)NonAf 54 (>60 ml/min/1.73 sqM) Glucose 111 H (74-99) mg/dL Calcium 9.0 (8.4-10.2) mg/dL Total Bilirubin 0.5 (0.2-1.3) mg/dL AST 46 H (14-36) U/L ALT 67 H (4-34) U/L Alkaline Phosphatase 50 (38-126) U/L Total Protein 6.7 (6.3-8.2) g/dL Albumin 4.1 (3.5-5.0) g/dL Amylase 89 (30-110) U/L Lipase 209 (23-300) U/L Urine Color Yellow Urine Appearance Cloudy H (Clear) Urine pH 5.5 (5.0-8.0) Ur Specific [place] 1.031 (1.001-1.035) Urine Protein 1+ H (Negative) Urine Glucose (UA) Negative (Negative) Urine Ketones Negative (Negative) Urine Blood Large H (Negative) Urine Nitrite Negative (Negative) Urine Bilirubin Negative (Negative) Urine Urobilinogen <2.0 (<2.0) mg/dL Ur Leukocyte Esterase Trace H (Negative) Urine RBC 146 H (0-5) /hpf Urine WBC 4 (0-5) /hpf Ur Squamous Epith Cells 12 H (0-4) /hpf Urine Bacteria Few H (None) /hpf Urine Mucus Few H (None) /hpf Disposition Clinical Impression: Kidney stone on left side Disposition: HOME SELF-CARE Condition: Good Instructions (If sedation given, give patient instructions): Kidney Stones (ED) Prescriptions: Tamsulosin [Flomax] 0.4 mg PO DAILY #14 cap Hydrocodone/Acetaminophen [[place] 5-325] 1 each PO Q6HR PRN #20 tab PRN Reason: Pain Ketorolac [Toradol] 10 mg PO TID #15 tab Ondansetron Odt [Zofran ODT] 4 mg PO Q8HR PRN #10 tab PRN Reason: Nausea Is patient prescribed a controlled substance at d/c from ED?: Yes When asked, does pt state using other controlled substances?: No If prescribed controlled substance>3 days was MAPS reviewed?: Prescribed <3 Days If opioid is for acute pain is fill amount 7 days or less?: Yes Referrals: Jon Kwon DO [Primary Care Provider] - 1-2 days Fermin Shin MD [STAFF PHYSICIAN] - 1-2 days
[2020-04-07 05:59] LABS: Basophils % (A) 0 %; Eosinophils # (A) 0.1 k/uL (0-0.7); Eosinophils % (A) 0 %; HCT 39.7 % (34.0-46.0); HGB 12.6 gm/dL (11.4-16.0); Lymphocytes # (A) 1.8 k/uL (1.0-4.8); Lymphocytes % (A) 16 %; MCH 32.1 pg (25.0-35.0); MCHC 31.7 g/dL (31.0-37.0); MCV 101.5 fL (80.0-100.0); Macrocytosis Slight; Monocytes # (A) 0.7 k/uL (0-1.0); Monocytes % (A) 6 %; Neutrophils # (A) 8.7 k/uL (1.3-7.7); Neutrophils % (A) 76 %; Platelet Count 271 k/uL (150-450); RBC 3.91 m/uL (3.80-5.40); RDW 13.9 % (11.5-15.5); WBC 11.4 k/uL (3.8-10.6)
[2020-04-07 06:09] LABS: Appearance,Urine Cloudy (Clear); Bacteria,Urine Few /hpf; Bilirubin,Urine Negative (Negative); Blood,Urine Large (Negative); Color,Urine Yellow; Glucose,Urine (UA) Negative (Negative); Ketones,Urine Negative (Negative); Leukocyte Esterase,Urine Trace (Negative); Mucus,Urine Few /hpf; Nitrite,Urine Negative (Negative); PH, Urine 5.5 (5.0-8.0); Protein,Urine 1+ (Negative); RBC,Urine 146 /hpf (0-5); Specific Gravity,Urine 1.031 (1.001-1.035); Squamous Epithelial Cell,Urine 12 /hpf (0-4); Urobilinogen,Urine <2.0 mg/dL (<2.0); WBC,Urine 4 /hpf (0-5)
[2020-04-07 06:11] LABS: Albumin 4.1 g/dL (3.5-5.0); Potassium 3.5 mmol/L (3.5-5.1); Total Bilirubin 0.5 mg/dL (0.2-1.3); Total Protein 6.7 g/dL (6.3-8.2)
[2020-04-07] MEDS ORDERED: ONDANSETRON 4 MG/2 ML VIAL IVP STA (06:17)
[2020-04-07] MEDS ORDERED: SODIUM CHLORIDE 0.9% 500 ML 500 ML IV STA ×2 (06:20→07:32)
[2020-04-07] MEDS ORDERED: TAMSULOSIN 0.4 MG CAP.ER.24H PO STA (06:22)
[2020-04-07] MEDS ORDERED: HYDROmorphone 0.5 MG/0.5 ML SYRINGE IVP STA (06:25)
[2020-04-07] MEDS ORDERED: PROMETHAZINE INJ 25 MG in SODIUM CHLORIDE 0.9% 50 ML IVPB STA (07:32)
--- NOTE | 2020-04-07 08:52 | CT ---
EXAM: CT Abdomen and Pelvis Without Intravenous Contrast CLINICAL HISTORY: ITS.REASON CT Reason: L flank pain TECHNIQUE: Axial computed tomography images of the abdomen and pelvis without intravenous contrast. CTDI is 12.17 mGy and DLP is 694.1 mGy-cm. This CT exam was performed using one or more of the following dose reduction techniques: automated exposure control, adjustment of the mA and/or kV according to patient size, and/or use of iterative reconstruction technique. COMPARISON: No prior CT FINDINGS: Lung bases: Mild streaky density/atelectasis in the lingula. ABDOMEN: Liver: Mild fatty liver. Gallbladder and bile ducts: Cholelithiasis. No CT evidence for acute cholecystitis. A gallstone near the fundus of the gallbladder measures approximately 2 x 1.7 cm. No ductal dilation. Pancreas: Unremarkable. No ductal dilation. Spleen: Unremarkable. No splenomegaly. Adrenals: Unremarkable. No mass. Kidneys and ureters: 3 mm calculus in the left bladder base which may reflect recently passed left ureteral calculus. Mild to moderate left hydronephrosis, perinephric edema and ureteral dilatation. No left renal calculus. Stomach and bowel: Diverticulosis. No evidence for acute diverticulitis. Mild retained stool. No bowel obstruction. PELVIS: Appendix: Normal appendix. Bladder: Decompressed bladder. No stones. Reproductive: Small left adnexal cyst measuring approximately 1.5 cm. This may represent dominant follicle. ABDOMEN and PELVIS: Intraperitoneal space: Unremarkable. No free air. No significant fluid collection. Bones/joints: No acute fracture. No dislocation. Soft tissues: Unremarkable. Vasculature: Unremarkable. No abdominal aortic aneurysm. Lymph nodes: Unremarkable. No enlarged lymph nodes. IMPRESSION: 1. 3 mm calculus in the left bladder base likely recently passed left ureteral calculus. 2. Mild to moderate left hydronephrosis, perinephric edema and ureteral dilatation. 3. No renal calculus. 4. Cholelithiasis. no CT evidence for acute cholecystitis 5. Small left adnexal cyst versus dominant follicle
[2020-04-07 09:03] VITALS: BP 110/74; PULSE 72; RESP 14; TEMP 98.4
== END 2020-04-07 09:00 | disposition home or self-care (01) ==
LOC: EC 05:34
DX: N13.2 Hydronephrosis with renal and ureteral calculous obstruction (principal); J45.909 Unspecified asthma, uncomplicated; I10 Essential (primary) hypertension; Z79.51 Long term (current) use of inhaled steroids; Z79.899 Other long term (current) drug therapy; Z91.041 Radiographic dye allergy status
CPT/HCPCS: 36415; 80053; 82150; 83690; 85025; 81001; 74176; 99284; 96365; 96375 ×3; J2550; J2405; J1885; J1170

== ENCOUNTER → 2020-05-15 | Outpatient (CLI) | payer BC ==
--- NOTE | 2020-05-15 21:31 | XR ---
EXAMINATION TYPE: XR chest 2V DATE OF EXAM: 05/15/2020 COMPARISON: 07/18/2016. HISTORY: Positive Covid. TECHNIQUE: Frontal and lateral views of the chest are obtained. FINDINGS: There is no significant infiltrate, pleural effusion, or pneumothorax seen. The cardiac s ilhouette size is within normal limits. The osseous structures are intact. IMPRESSION: No radiographic evidence for significant infiltrate.
[2020-05-15 21:38] LABS: ALT 30 U/L (4-34); AST 31 U/L (14-36); African American GFR (CKD) >90 (>60 ml/min/1.73 sqM); Albumin 4.2 g/dL (3.5-5.0); Albumin/Globulin Ratio 1.6; Alkaline Phosphatase 40 U/L (38-126); Anion Gap 8 mmol/L; Blood Urea Nitrogen 20 mg/dL (7-17); C Reactive Protein <5.0 mg/L (<10.0); Calcium 9.9 mg/dL (8.4-10.2); Carbon Dioxide 25 mmol/L (22-30); Chloride 103 mmol/L (98-107); Globulin 2.7 g/dL; Glucose 156 mg/dL (74-99); LDH 480 U/L (313-618); Non-African American GFR(CKD) 78 (>60 ml/min/1.73 sqM); Potassium 4.1 mmol/L (3.5-5.1); Sodium 136 mmol/L (137-145); Total Bilirubin 0.4 mg/dL (0.2-1.3); Total Protein 6.9 g/dL (6.3-8.2)
[2020-05-15 21:55] LABS: HCT 40.4 % (34.0-46.0); HGB 13.9 gm/dL (11.4-16.0); MCH 32.7 pg (25.0-35.0); MCHC 34.4 g/dL (31.0-37.0); Mean Platelet Volume 7.6; Platelet Count 271 k/uL (150-450); RBC 4.25 m/uL (3.80-5.40); RDW 12.5 % (11.5-15.5); WBC 4.8 k/uL (3.8-10.6)
[2020-05-15 22:09] LABS: MCV 95.1 fL (80.0-100.0)
== END | disposition home or self-care (01) ==
LOC: LABMAIN 20:31
PROVIDERS: ATTEND Emergency Medicine
DX: U07.1 COVID-19 (principal)
CPT/HCPCS: 36415; 71046; 80053; 83615; 85027; 85379; 86140

== ENCOUNTER → 2020-05-25 | Outpatient (CLI) | payer BC ==
[~2020-05-25] MED LIST changes: -LACTATED RINGERS 1,000 ML IV SCH; -LIDOCAINE 1% 20 ML VIAL (10MG/ML) FOR IV START INTRADERMA PRN; -PROPOFOL 10 MG/ML 20 ML VIAL IV ONE; +cefTRIAXone IN SWFI 1,000 MG/10 ML SYRINGE IVP STA
[2020-05-25 11:49] LABS: HCT 37.2 % (34.0-46.0); HGB 13.3 gm/dL (11.4-16.0); MCH 33.5 pg (25.0-35.0); MCHC 35.8 g/dL (31.0-37.0); MCV 93.7 fL (80.0-100.0); Mean Platelet Volume 7.3; Platelet Count 228 k/uL (150-450); RBC 3.97 m/uL (3.80-5.40); RDW 12.4 % (11.5-15.5); WBC 16.5 k/uL (3.8-10.6)
[2020-05-25 12:01] LABS: ALT 29 U/L (4-34); AST 23 U/L (14-36); African American GFR (CKD) >90 (>60 ml/min/1.73 sqM); Albumin 3.8 g/dL (3.5-5.0); Alkaline Phosphatase 52 U/L (38-126); Anion Gap 6 mmol/L; Blood Urea Nitrogen 24 mg/dL (7-17); C Reactive Protein 27.6 mg/L (<10.0); Calcium 9.6 mg/dL (8.4-10.2); Carbon Dioxide 28 mmol/L (22-30); Chloride 99 mmol/L (98-107); Glucose 106 mg/dL (74-99); Non-African American GFR(CKD) >90 (>60 ml/min/1.73 sqM); Potassium 4.1 mmol/L (3.5-5.1); Sodium 133 mmol/L (137-145); Total Bilirubin 0.6 mg/dL (0.2-1.3); Total Protein 6.8 g/dL (6.3-8.2)
== END | disposition home or self-care (01) ==
LOC: EC 11:26
PROVIDERS: ATTEND Emergency Medicine
DX: R05 Cough (principal)
CPT/HCPCS: 36415; 80053; 85027; 85379; 86140

== ENCOUNTER → 2020-05-25 | Outpatient (CLI) | payer BC ==
--- NOTE | 2020-05-25 12:13 | XR ---
EXAMINATION TYPE: XR chest 2V DATE OF EXAM: 05/25/2020 COMPARISON: 05/15/2020 HISTORY: Cough TECHNIQUE: Frontal and lateral views of the chest are obtained. FINDINGS: There is no focal air space opacity. No evidence for pneumothorax. No pleural effusion. The cardiac silhouette size is within normal limits. The osseous structures are grossly intact. IMPRESSION: 1. No acute cardiopulmonary process.
== END | disposition home or self-care (01) ==
LOC: RADXRMAIN 11:31
PROVIDERS: ATTEND Emergency Medicine
DX: R05 Cough (principal)
CPT/HCPCS: 71046

== ENCOUNTER 2020-06-03 17:23 | Emergency (ER) | payer BC ==
[2020-06-03] MEDS ORDERED: methylPREDNISolone SOD SUCCI 125 MG/2 ML VIAL IV STA (17:24)
[2020-06-03] MEDS ORDERED: SODIUM CHLORIDE 0.9% 500 ML 500 ML IV STA (17:24)
[2020-06-03] MEDS ORDERED: diphenhydrAMINE 50 MG/ML 1 ML VIAL IVP STA (17:24)
[2020-06-03] MEDS ORDERED: FAMOTIDINE 20 MG/2 ML VIAL IV STA (17:24)
[2020-06-03 17:29] VITALS: RESP 18; TEMP 98.7
--- NOTE | 2020-06-03 17:39 | ED ---
General Adult HPI - General Stated complaint: SOB/Cough Time Seen by Provider: 06/03/20 17:24 Source: patient, RN notes reviewed, old records reviewed Mode of arrival: ambulatory Limitations: no limitations - History of Present Illness Initial comments: 55 yo female presenting for evaluation of exertional dyspnea. Patient was diagnosed with coronavirus a little over 3 weeks ago. She had daily fevers as well as cough and dyspnea. Over the past several days her symptoms of fever, fatigue, myalgias have improved however she has worsening dyspnea. She only has a mild residual cough. She had completed a course of steroids, as well as antibiotics for questionable secondary pneumonia. - Related Data Home Medications Medication Instructions Recorded Confirmed Lisinopril-Hctz 10-12.5 mg 1 tab PO DAILY 04/01/19 04/07/20 [Zestoretic 10-12.5] Calcium Carbonate [Calcium] 600 mg PO DAILY 02/18/20 04/07/20 Cholecalciferol [Vitamin D3 (25 2,000 unit PO DAILY 02/18/20 04/07/20 Mcg = 1000 Iu)] Upadacitinib [Rinvoq ER] 15 mg PO QAM 02/18/20 04/07/20 Potassium Chloride ER [K-Dur 20] 20 meq PO DAILY 04/07/20 04/07/20 predniSONE 5 mg PO DAILY 04/07/20 04/07/20 Previous Rx's Medication Instructions Recorded Hydrocodone/Acetaminophen [[place] 1 each PO Q6HR PRN #20 tab 04/07/20 5-325] Ketorolac [Toradol] 10 mg PO TID #15 tab 04/07/20 Ondansetron Odt [Zofran ODT] 4 mg PO Q8HR PRN #10 tab 04/07/20 Tamsulosin [Flomax] 0.4 mg PO DAILY #14 cap 04/07/20 Allergies Allergy/AdvReac Type Severity Reaction Status Date / Time Iodinated Contrast Media AdvReac hives Verified 06/03/20 17:29 [Iodinated Contrast Media - IV Dye] Review of Systems ROS Statement: Those systems with pertinent positive or pertinent negative responses have been documented in the HPI. ROS Other: All systems not noted in ROS Statement are negative. Past Medical History Past Medical History: Asthma, Hypertension Additional Past Medical History / Comment(s): IBS, polymyalgia rheumatic. PAST MEDICAL INSURANCE CLAIMS PROCESSOR HISTORY: She has no history of STDs. History of Any Multi-Drug Resistant Organisms: None Reported Past Surgical History: Hernia Repair, Tonsillectomy Additional Past Surgical History / Comment(s): Bilateral Lasix eye sx, bilateral carpal tunnel release, cystoscopy, laparoscopic ovarian cystectomy 1989. Colonoscopy 2019(next aft4er 10yr). Past Anesthesia/Blood Transfusion Reactions: No Reported Reaction Past Psychological History: No Psychological Hx Reported Smoking Status: Never smoker Past Alcohol Use History: Occasional Past Drug Use History: None Reported - Past Family History Father Family Medical History: Myocardial Infarction ([place]) Additional Family Medical History / Comment(s): Great maternal aunt had breast cancer. General Exam Limitations: no limitations General appearance: alert, in no apparent distress Head exam: Present: atraumatic, normocephalic Eye exam: Present: normal appearance, PERRL Neck exam: Present: normal inspection. Absent: tenderness, meningismus Respiratory exam: Present: normal lung sounds bilaterally, other (Mild cough). Absent: respiratory distress, wheezes, rales, rhonchi Cardiovascular Exam: Present: regular rate, normal rhythm GI/Abdominal exam: Present: soft. Absent: distended, tenderness, guarding Extremities exam: Present: normal inspection, normal capillary refill. Absent: pedal edema Back exam: Present: normal inspection Neurological exam: Present: alert, oriented X3, CN II-XII intact. Absent: motor sensory deficit Psychiatric exam: Present: normal affect, normal mood Skin exam: Present: warm, dry, intact. Absent: cyanosis, diaphoretic Course Vital Signs 06/03/20 06/03/20 17:26 17:29 Temperature 98.7 F Pulse Rate 70 Respiratory 18 18 Rate Blood Pressure 140/83 O2 Sat by Pulse 96 Oximetry EKG Findings - EKG Comments: EKG Findings:: EKG: Normal sinus rhythm, rate of 80, CO interval 154, QRS duration 84, QTC 419, T-wave flattening and inversion in the inferior leads 3, no ST segment elevation Medical Decision Making - Medical Decision Making 55-year-old female presenting for her worsening dyspnea with history of coronavirus patient is stable with hypoxia. Workup reveals leukocytosis however the patient had been on steroids. She has a mild lactic acidosis, mild hyponatremia. She still is protecting positive for coronavirus. CT angiography is performed to rule out pulmonary embolism. This is negative for PE but does show groundglass bilateral patchy infiltrate consistent with coronavirus and pneumonia. Case is discussed with Dr. Jeffries who does recommend prednisone 30 mg taper. - Lab Data Result diagrams: 06/03/20 17:46 06/03/20 17:46 Lab Results 06/03/20 06/03/20 06/03/20 Range/Units 17:46 17:46 17:46 WBC 15.4 H (3.8-10.6) k/uL RBC 3.78 L (3.80-5.40) m/uL Hgb 12.5 (11.4-16.0) gm/dL Hct 35.7 (34.0-46.0) % MCV 94.5 (80.0-100.0) fL MCH 33.0 (25.0-35.0) pg MCHC 34.9 (31.0-37.0) g/dL RDW 13.1 (11.5-15.5) % Plt Count 435 (150-450) k/uL MPV 7.0 Neutrophils % (Manual) 63 % Band Neuts % (Manual) 4 % Lymphocytes % (Manual) 19 % Monocytes % (Manual) 10 % Metamyelocytes % 4 % Myelocytes % 2 % Neutrophils # (Manual) 10.30 H (1.3-7.7) k/uL Lymphocytes # (Manual) 2.93 (1.0-4.8) k/uL Monocytes # (Manual) 1.54 H (0-1.0) k/uL Metamyelocytes # (Man) 0.62 H (0) k/uL Myelocytes # (Manual) 0.31 H (0) k/uL Nucleated RBCs 1 H (0-0) /100 WBC Manual Slide Review Performed PT 9.4 (9.0-12.0) sec INR 0.9 (<1.2) APTT 20.9 L (22.0-30.0) sec Sodium 133 L (137-145) mmol/L Potassium 4.1 (3.5-5.1) mmol/L Chloride 99 (98-107) mmol/L Carbon Dioxide 25 (22-30) mmol/L Anion Gap 9 mmol/L BUN 26 H (7-17) mg/dL Creatinine 0.63 (0.52-1.04) mg/dL Est GFR (CKD-EPI)AfAm >90 (>60 ml/min/1.73 sqM) Est GFR (CKD-EPI)NonAf >90 (>60 ml/min/1.73 sqM) Glucose 119 H (74-99) mg/dL Plasma Lactic Acid Manuel (0.7-2.0) mmol/L Calcium 9.8 (8.4-10.2) mg/dL Magnesium 1.9 (1.6-2.3) mg/dL Total Bilirubin 0.5 (0.2-1.3) mg/dL AST 27 (14-36) U/L ALT 38 H (4-34) U/L Alkaline Phosphatase 53 (38-126) U/L Troponin I (0.000-0.034) ng/mL C-Reactive Protein 6.6 (<10.0) mg/L NT-Pro-B Natriuret Pep pg/mL Total Protein 6.7 (6.3-8.2) g/dL Albumin 3.7 (3.5-5.0) g/dL Coronavirus (PCR) (Not Detectd) 06/03/20 06/03/20 06/03/20 Range/Units 17:46 17:46 17:46 WBC (3.8-10.6) k/uL RBC (3.80-5.40) m/uL Hgb (11.4-16.0) gm/dL Hct (34.0-46.0) % MCV (80.0-100.0) fL MCH (25.0-35.0) pg MCHC (31.0-37.0) g/dL RDW (11.5-15.5) % Plt Count (150-450) k/uL MPV Neutrophils % (Manual) % Band Neuts % (Manual) % Lymphocytes % (Manual) % Monocytes % (Manual) % Metamyelocytes % % Myelocytes % % Neutrophils # (Manual) (1.3-7.7) k/uL Lymphocytes # (Manual) (1.0-4.8) k/uL Monocytes # (Manual) (0-1.0) k/uL Metamyelocytes # (Man) (0) k/uL Myelocytes # (Manual) (0) k/uL Nucleated RBCs (0-0) /100 WBC Manual Slide Review PT (9.0-12.0) sec INR (<1.2) APTT (22.0-30.0) sec Sodium (137-145) mmol/L Potassium (3.5-5.1) mmol/L Chloride (98-107) mmol/L Carbon Dioxide (22-30) mmol/L Anion Gap mmol/L BUN (7-17) mg/dL Creatinine (0.52-1.04) mg/dL Est GFR (CKD-EPI)AfAm (>60 ml/min/1.73 sqM) Est GFR (CKD-EPI)NonAf (>60 ml/min/1.73 sqM) Glucose (74-99) mg/dL Plasma Lactic Acid Manuel 2.4 H* (0.7-2.0) mmol/L Calcium (8.4-10.2) mg/dL Magnesium (1.6-2.3) mg/dL Total Bilirubin (0.2-1.3) mg/dL AST (14-36) U/L ALT (4-34) U/L Alkaline Phosphatase (38-126) U/L Troponin I <0.012 (0.000-0.034) ng/mL C-Reactive Protein (<10.0) mg/L NT-Pro-B Natriuret Pep 52 pg/mL Total Protein (6.3-8.2) g/dL Albumin (3.5-5.0) g/dL Coronavirus (PCR) (Not Detectd) 06/03/20 Range/Units 17:56 WBC (3.8-10.6) k/uL RBC (3.80-5.40) m/uL Hgb (11.4-16.0) gm/dL Hct (34.0-46.0) % MCV (80.0-100.0) fL MCH (25.0-35.0) pg MCHC (31.0-37.0) g/dL RDW (11.5-15.5) % Plt Count (150-450) k/uL MPV Neutrophils % (Manual) % Band Neuts % (Manual) % Lymphocytes % (Manual) % Monocytes % (Manual) % Metamyelocytes % % Myelocytes % % Neutrophils # (Manual) (1.3-7.7) k/uL Lymphocytes # (Manual) (1.0-4.8) k/uL Monocytes # (Manual) (0-1.0) k/uL Metamyelocytes # (Man) (0) k/uL Myelocytes # (Manual) (0) k/uL Nucleated RBCs (0-0) /100 WBC Manual Slide Review PT (9.0-12.0) sec INR (<1.2) APTT (22.0-30.0) sec Sodium (137-145) mmol/L Potassium (3.5-5.1) mmol/L Chloride (98-107) mmol/L Carbon Dioxide (22-30) mmol/L Anion Gap mmol/L BUN (7-17) mg/dL Creatinine (0.52-1.04) mg/dL Est GFR (CKD-EPI)AfAm (>60 ml/min/1.73 sqM) Est GFR (CKD-EPI)NonAf (>60 ml/min/1.73 sqM) Glucose (74-99) mg/dL Plasma Lactic Acid Manuel (0.7-2.0) mmol/L Calcium (8.4-10.2) mg/dL Magnesium (1.6-2.3) mg/dL Total Bilirubin (0.2-1.3) mg/dL AST (14-36) U/L ALT (4-34) U/L Alkaline Phosphatase (38-126) U/L Troponin I (0.000-0.034) ng/mL C-Reactive Protein (<10.0) mg/L NT-Pro-B Natriuret Pep pg/mL Total Protein (6.3-8.2) g/dL Albumin (3.5-5.0) g/dL Coronavirus (PCR) Detected A (Not Detectd) Disposition Clinical Impression: Pneumonia due to COVID-19 virus Disposition: HOME SELF-CARE Condition: Fair Instructions (If sedation given, give patient instructions): Bronchospasm (ED), Viral Pneumonia (ED) Is patient prescribed a controlled substance at d/c from ED?: No Referrals: Jon Kwon DO [Primary Care Provider] - 1-2 days Time of Disposition: 19:02
[2020-06-03 18:03] LABS: HCT 35.7 % (34.0-46.0); HGB 12.5 gm/dL (11.4-16.0); MCHC 34.9 g/dL (31.0-37.0); MCV 94.5 fL (80.0-100.0); Platelet Count 435 k/uL (150-450); RBC 3.78 m/uL (3.80-5.40); RDW 13.1 % (11.5-15.5)
[2020-06-03 18:08] LABS: ALT 38 U/L (4-34); AST 27 U/L (14-36); African American GFR (CKD) >90 (>60 ml/min/1.73 sqM); Albumin 3.7 g/dL (3.5-5.0); Alkaline Phosphatase 53 U/L (38-126); Anion Gap 9 mmol/L; Blood Urea Nitrogen 26 mg/dL (7-17); C Reactive Protein 6.6 mg/L (<10.0); Calcium 9.8 mg/dL (8.4-10.2); Carbon Dioxide 25 mmol/L (22-30); Chloride 99 mmol/L (98-107); Glucose 119 mg/dL (74-99); Magnesium 1.9 mg/dL (1.6-2.3); Non-African American GFR(CKD) >90 (>60 ml/min/1.73 sqM); Potassium 4.1 mmol/L (3.5-5.1); Sodium 133 mmol/L (137-145); Total Bilirubin 0.5 mg/dL (0.2-1.3); Total Protein 6.7 g/dL (6.3-8.2)
[2020-06-03 18:10] LABS: INR 0.9 (<1.2); Prothrombin Time 9.4 sec (9.0-12.0)
[2020-06-03 18:14] LABS: Partial Thromboplastin Time 20.9 sec (22.0-30.0)
[2020-06-03 18:23] LABS: Band Neutrophils % 4 %; Metamyelocytes # (M) 0.62 k/uL (0); Metamyelocytes % 4 %; Myelocytes # (M) 0.31 k/uL (0); Myelocytes % 2 %; Neutrophils % (M) 63 %; Nucleated Red Blood Cells 1 /100 WBC (0-0); Total Cells Counted 200
[2020-06-03 18:24] LABS: Lymphocytes # (M) 2.93 k/uL (1.0-4.8); Monocytes # (M) 1.54 k/uL (0-1.0); WBC 15.4 k/uL (3.8-10.6)
--- NOTE | 2020-06-03 18:50 | CT ---
EXAMINATION TYPE: CT angio chest DATE OF EXAM: 06/03/2020 COMPARISON: Radiograph 05/25/2020 HISTORY: 55-year-old female Covid, rule out PE. Pt c/o SOB. TECHNIQUE: Contiguous axial scanning of the chest performed with IV Contrast, patient injected with 1 00 mL of Isovue 370. Coronal and sagittal MIP reconstructions performed. CT DLP: 312.4 mGycm Automated exposure control for dose reduction was used. FINDINGS: The heart is normal size without pericardial effusion. No flattening of the interventricular septum o r reflux of contrast into the hepatic veins. The aorta is normal caliber with conventional arch vessel branching anatomy. Right hilar lymph node borderline in size at 1 cm. Subcarinal lymph node measures upper limits of nor mal at 1.1 cm. Otherwise, no thoracic lymphadenopathy by CT size criteria. There is satisfactory opacification of the pulmonary arterial system without evidence for pulmonary e mbolus. Multifocal patchy and confluent peripheral groundglass infiltrates are present on both sides, greates t within the lower lungs but also scattered within the upper lungs. No pleural effusion. Visualized upper abdomen shows no gross abnormality. Bones: No osseous destructive process. IMPRESSION: 1. NO EVIDENCE FOR PULMONARY BOLUS. 2. MULTIFOCAL PREDOMINANTLY PERIPHERAL GROUNDGLASS INFILTRATES BILATERALLY. FINDINGS SUGGEST COVID PN EUMONIA. CLINICALLY CORRELATE.
[2020-06-03 19:12] VITALS: BP 139/78; PULSE 80
== END 2020-06-03 19:11 | disposition home or self-care (01) ==
LOC: EC 17:23
DX: U07.1 COVID-19 (principal); J12.89 Other viral pneumonia; I10 Essential (primary) hypertension; J45.909 Unspecified asthma, uncomplicated; D72.829 Elevated white blood cell count, unspecified; E87.2 Acidosis; E87.1 Hypo-osmolality and hyponatremia; Z79.899 Other long term (current) drug therapy; Z79.52 Long term (current) use of systemic steroids; Z91.041 Radiographic dye allergy status
CPT/HCPCS: 36415; 93005; 83880; 80053; 83605; 83735; 84484; 85025; 85610; 85730; 86140; 87635; 71275; 99285; 96374; 96375 ×2; 96361; J1200; J2930; Q9967

== ENCOUNTER → 2020-08-24 | Outpatient (CLI) | payer BC | END | disposition home or self-care (01) | LOC: LABWHC1 11:19 | PROVIDERS: ATTEND Family Medicine | DX: Z20.822 Contact with and (suspected) exposure to COVID-19 (principal); R73.03 Prediabetes; Z87.01 Personal history of pneumonia (recurrent) | CPT/HCPCS: 36415; 83036; 86769 ==

== ENCOUNTER → 2021-03-29 | Outpatient (CLI) | payer BC ==
[2021-03-29 11:31] VITALS: BP 131/84; PULSE 82; RESP 18; TEMP 99.6
--- NOTE | 2021-03-29 12:01 | P.HPOB ---
History of Present Illness H&P Date: 03/29/21 Chief Complaint: The patient is here for her routine gynecologic exam and ma mmogram. This is a 55-year-old with an LMP of June 2019. The patient is without gynecologic complaints and denies any postmenopausal bleeding. Her hot flashes have improved and are now only mild and not very bothersome. Review of Systems The patient has lost 23 pounds over the last year. She denies respiratory, cardiac, or G.I. problems. Past Medical History Past Medical History: Asthma, Hypertension Additional Past Medical History / Comment(s): IBS, polymyalgia rheumatic. 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 History of Any Multi-Drug Resistant Organisms: None Reported Past Surgical History: Hernia Repair, Tonsillectomy Additional Past Surgical History / Comment(s): Bilateral Lasix eye sx, bilateral carpal tunnel release, cystoscopy, laparoscopic ovarian cystectomy 1989. Colonoscopy 2019(next after 10yr). 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 - Past Family History Father Family Medical History: Myocardial Infarction ([place]) Additional Family Medical History / Comment(s): Great maternal aunt had breast cancer. Medications and Allergies Home Medications Medication Instructions Recorded Confirmed Type Lisinopril-Hctz 10-12.5 mg 1 tab PO DAILY 04/01/19 03/29/21 History [Zestoretic 10-12.5] Calcium Carbonate [Calcium] 600 mg PO DAILY 02/18/20 03/29/21 History Cholecalciferol [Vitamin D3 (25 2,000 unit PO DAILY 02/18/20 03/29/21 History Mcg = 1000 Iu)] Upadacitinib [Rinvoq ER] 15 mg PO QAM 02/18/20 03/29/21 History Potassium Chloride ER [K-Dur 20] 20 meq PO DAILY 04/07/20 03/29/21 History predniSONE 5 mg PO DAILY 04/07/20 03/29/21 History Allergies Allergy/AdvReac Type Severity Reaction Status Date / Time Iodinated Contrast Media AdvReac hives Verified 03/29/21 11:23 [Iodinated Contrast Media - IV Dye] Exam Vital Signs Temp Pulse Resp BP Pulse Ox 03/29/21 11:26 99.6 F 82 18 131/84 100 Intake and Output 03/28/21 03/29/21 03/29/21 22:59 06:59 14:59 Other: Weight 69.4 kg Height 5 feet 1-1/2 inches, weight 153 pounds, BMI 28.4. This is a well-developed well-nourished white female who is alert and oriented times 3 in no acute distress. HEENT: Within normal limits. NECK: Supple without mass or thyromegaly. CHEST AND LUNGS: Clear to auscultation. HEART: Regular rate and rhythm. BREASTS: Are without mass or discharge. AXILLARY EXAM: Negative for adenopathy. BACK: Negative for CVA tenderness. ABDOMEN: Soft, nontender, without palpable masses. PELVIC EXAM: Normal external genitalia with mild atrophy. Cervix and vagina appear normal with mild atrophy. There is no unusual discharge. There is no evidence of prolapse. The uterus is midposition, nongravid size and nontender. There are no palpable adnexal masses or tenderness. RECTAL EXAM: Rectovaginal exam is negative for mass or tenderness and is negative for occult blood. EXTREMITIES: Nontender. IMPRESSION: 1. 55-year-old menopausal female with normal gynecologic exam. PLAN: 1. Pap smear was deferred since she had a normal one on 02/18/2020. 2. Self breast awareness was discussed with the patient. We have also dis cussed symptoms associated with inflammatory breast cancer. 3. Screening mammogram will be done today. 4. Osteoporosis prevention was discussed. I have stressed the importance of adequate calcium, vitamin D and regular exercise. Recommended amounts of calcium and vitamin D were also discussed. 5. She has not received a Covid vaccination. She did have Covid last year. She understands that some groups still recommend getting a Covid vaccination even after having had a Covid. She will consider this. 6. She was advised to return in one year for her annual well woman exam.
== END ==
LOC: WWCWWP 11:13
PROVIDERS: ATTEND Obstetrics & Gynecology
DX: Z12.31 Encounter for screening mammogram for malignant neoplasm of breast (principal); Z01.419 Encounter for gynecological examination (general) (routine) without abnormal findings; I10 Essential (primary) hypertension; J45.909 Unspecified asthma, uncomplicated; Z79.899 Other long term (current) drug therapy; Z91.041 Radiographic dye allergy status
CPT/HCPCS: 77063; 77067

== ENCOUNTER → 2021-05-04 | Outpatient (CLI) | payer BC ==
--- NOTE | 2021-05-05 04:00 | MR ---
EXAMINATION TYPE: MR lumbar spine wo con DATE OF EXAM: 05/04/2021 COMPARISON: None HISTORY: LBP, BLE radiculopathy x 6 months. MR scan of the lumbar spine without contrast. Vertebra have normal alignment. Disc spaces are fairly normal. There is a rounded fluid density in th e spinal canal on the right side at the L4-5 level measuring 6 mm in diameter and consistent with a s ynovial cyst. There is resultant mild relative spinal stenosis. There is no lumbar paraspinal mass. T he sacroiliac joints are intact. There is no compression fracture. IMPRESSION: There is a synovial cyst in the spinal canal on the right side at L4-5 with impingement on the latera l recess. No fracture.
== END | disposition home or self-care (01) ==
LOC: RADMRIMAIN 20:42
PROVIDERS: ATTEND Orthopaedic Surgery Orthopaedic Surgery of the Spine
DX: M48.061 Spinal stenosis, lumbar region without neurogenic claudication (principal); M85.68 Other cyst of bone, other site
CPT/HCPCS: 72148

== ENCOUNTER → 2021-05-30 | Outpatient (CLI) | payer BC ==
[2021-05-30 09:20] VITALS: BP 147/86; PULSE 84; RESP 18; TEMP 98.3
--- NOTE | 2021-05-30 17:17 | P.PAINCN ---
History of Present Illness - Reason for Consult Consult date: 05/30/21 - History of Present Illness This is 56 mL MALE with a chronic history of severe low back pain started 6 months ago, she denies any initiating event and she reported that the intensity of the pain increased over time, the pain is constant and localized in the low back area with radiation towards the buttock bilaterally, patient was evaluated by Dr. Dr. Holman, and patient had MRI done showed that she had L4 5 right-sided synovial cyst, and patient was referred to [facility] for interventional pain management, patient denies any motor or sensory deficit she denies any fever or night sweats, and she reported that the pain is constant with intensity of the pain 5/10 and increases with activity to 8-9/10, she describes the pain as sharp aching pain she denies any numbness or tingling sensation, patient already tried the oral medication/ibuprofen and she tried heat therapy and she tried activity modification and any significant benefit Past Medical History Past Medical History: Asthma, GI Bleed, Hypertension Additional Past Medical History / Comment(s): IBS, polymyalgia rheumatic., Hx hematuria (unknown cause), states pain buttocks and upper thighs. History of Any Multi-Drug Resistant Organisms: None Reported Past Surgical History: Hernia Repair, Tonsillectomy Additional Past Surgical History / Comment(s): Lasik eye surgery., bilateral carpal tunnel release, cystoscopy, laparoscopic ovarian cystectomy 1989. Colonoscopy ., inguinal hernia. Past Anesthesia/Blood Transfusion Reactions: No Reported Reaction Past Psychological History: No Psychological Hx Reported Smoking Status: Never smoker Past Alcohol Use History: Occasional Past Drug Use History: None Reported - Past Family History Father Family Medical History: Myocardial Infarction ([place]) Additional Family Medical History / Comment(s): Great maternal aunt had breast cancer. Medications and Allergies Home Medications Medication Instructions Recorded Confirmed Type Lisinopril-Hctz 10-12.5 mg 1 tab PO DAILY 04/01/19 05/30/21 History [Zestoretic 10-12.5] predniSONE 5 mg PO DAILY 04/07/20 05/30/21 History Calcium (Unknown Dose) 1 tab PO DAILY 05/26/21 05/30/21 History Kevzara (Unknown Dose) 1 dose PO DIRECTED 05/26/21 05/30/21 History Potassium (Unknown Dose) 1 tab PO DAILY 05/26/21 05/30/21 History Vitamin D 3 (Unknown Dose) 1 tab PO DAILY 05/26/21 05/30/21 History Allergies Allergy/AdvReac Type Severity Reaction Status Date / Time Iodinated Contrast Media AdvReac hives Verified 05/26/21 13:35 [Iodinated Contrast Media - IV Dye] Physical Exam Vitals: Vital Signs Temp Pulse Resp BP Pulse Ox 05/30/21 08:58 98.3 F 84 18 147/86 97 Physical Examinations : -Constitutiona : Cooperative , not in acute distress . -HEENT : nech : supple , no Lymphadenopathy , normal thyroid size . : eyes : no ptosis , no icterus, no photophobia . - neurologic : Cranial nerve II to XII intact , no focal neurological deffecit . -psychatric : alert , oriented X 3 , appropriate affect , intact judgment and insight . -Lymphatic : no Lymphadenopathy . - musculoskeltal : Lumber spine moter stegnth lower extremities ,thigh and legs 5/5 Right side , 5/5 Left side deep tendon reflexes : normal Knee Jerk , normal ankle Jerk lumber facet Loading Test = negative bilaterally Range of motion of the lumbar spine Flexion 30 degrees, extension 10 degrees strait leg raising test = negative bilaterally Fabere test= negative bilaterally . no tenderness over the Sacroiliac joint on the Right , and Left sides Results Comments: MRI of the lumbar spine L4 5 right-sided synovial cyst in the spinal canal Assessment and Plan Plan: Assessment and plan=1 low back pain secondary to lumbar synovial cyst at the L4 5 level. Patient could benefit from lumbar epidural steroid injection at L4 5 levels under fluoroscopy guidance. Procedure risk and benefits and alternatives discussed with the patient she agreed with the preceding Time with Patient: Greater than 30 PQRS Measure Charge Sheet Measure #130: Documentation of Current Meds in Medical Chart: Patient's medications documented in chart Measure #226: Tobacco Use: Screen & Cessation Intervention: Pt not a tobacco user Measure #111: Pneumonia Vaccination: Pneumococcal vaccine NOT administered or previously given Measure #47: Advance Care Plan: Advance care planning discussed & documented, plan or surrogate given Measure #412: Opioid Treatment Agreement: No documentation of signed opioid treatment agreement Measure #408: Opioid Therapy Follow-up Evaluation: Patient had NO f/u eval minimum every 3 months during opioid therapy Measure #317: Preventitive Care & Scrn High Bld Press & F/U: Blood pressure not documented, patient not eligible Measure #128: Body Mass Index (BMI) Screening & Follow-up: BMI documented ABOVE normal parameters - f/u documented Measure #131: Pain Assessment & Follow-up: Pain positive & plan documented, Follow-up scheduled Measure #431: Unhealthy Alcohol Use Preventative Care & Scrn: Patient not identified as an unhealthy alcohol user Mode of Arrival: Ambulatory - Pain Location Bilateral Buttock Non-Pharmacological Interventions: Heat, Inactivity, Position/Reposition Pharmacological Interventions: PRN Medication PQRS Narrative: Smoking Status Never smoker Blood Pressure 147/86 Pain Intensity [Bilateral 5 Buttock] Scale Used Numeric (1 - 10) Hx Alcohol Use (MH) No Home Medications: Ambulatory Orders Lisinopril-Hctz 10-12.5 mg [Zestoretic 10-12.5] 1 tab PO DAILY 04/01/19 predniSONE 5 mg PO DAILY 04/07/20 Calcium (Unknown Dose) 1 tab PO DAILY 05/26/21 Kevzara (Unknown Dose) 1 dose PO DIRECTED 05/26/21 Potassium (Unknown Dose) 1 tab PO DAILY 05/26/21 Vitamin D 3 (Unknown Dose) 1 tab PO DAILY 05/26/21
== END ==
LOC: PNWHC3 08:34
PROVIDERS: ATTEND Specialist
DX: M71.38 Other bursal cyst, other site (principal); J45.909 Unspecified asthma, uncomplicated; I10 Essential (primary) hypertension; Z79.52 Long term (current) use of systemic steroids; Z79.899 Other long term (current) drug therapy; Z91.041 Radiographic dye allergy status
CPT/HCPCS: 99211

== ENCOUNTER 2021-07-07 07:06 | Day surgery (SDC) | payer BC ==
[2021-07-05 12:41] VITALS: BMI 25.0
[~2021-07-07 07:06] MED LIST changes: +LACTATED RINGERS 1,000 ML IV SCH; -cefTRIAXone IN SWFI 1,000 MG/10 ML SYRINGE IVP STA
[2021-07-07 07:34] VITALS: RESP 16; TEMP 97.9
[2021-07-07] MEDS ORDERED: fentaNYL (PF) 50 MCG/ML 2 ML AMP ONE (07:38)
[2021-07-07] MEDS ORDERED: MIDAZOLAM 2 MG/2 ML VIAL ONE (07:38)
[2021-07-07] MEDS ORDERED: methylPREDNISolone ACETATE 40 MG/ML 1 ML VIAL ONE (07:38)
[2021-07-07 07:39] LABS: Glucose,Whole Blood 106 mg/dL (75-99)
--- NOTE | 2021-07-07 07:50 | P.PCN ---
Date of Procedure: 07/07/21 Procedure(s) Performed: PREOPERATIVE DIAGNOSIS: 1- Lumbar spinal stenosis 2-Lumbar synovial cyst at L4 5 POSTOPERATIVE DIAGNOSIS: Same as preop diagnosis. PROCEDURE 1. Lumbar epidural steroid injection under fluoroscopic guidance at the L4-5 level. (Fluoroscopy imaging was available in radiology department) ANESTHESIA: Local with 1% lidocaine 3 ml and , moderate sedation with intravenous Versed 2 mg ,and fentanyle 100 Mcg EBL: Minimal PROCEDURE INDICATION: The patient with low back pain and radiculitis symptoms unresponsive to conservative treatment. Fluoroscopy was used to optimize visualization of the needle placement and to maximize safety. PROCEDURE DESCRIPTION / TECHNIQUE: The patient was seen and identified in the preoperative area. Risks, benefits, complications including but not limited to infections ,bleeding ,allergic reaction to the medications ,nerve damage and not complete pain releife , and alternatives were discussed with the patient. The patient agreed to proceed with the procedure and signed the consent. IV was started, and vital signs were stable. Patient was taken to the OR and time out was completed. The patient was placed in the prone position on procedure table and a pillow was placed under the abdomen to reduce lumbar lordosis. The lumbosacral area was prepped and draped in the usual sterile fashion.ere closely monitored during the procedure. Conscious sedation was used during the procedure to decrease patients anxiety. Vital signs was monitered during the entire procedure. Using anterior-posterior fluoroscopy, the L4-5 interlaminar space was identified and the skin over this site was marked and then infiltrated with 1% lidocaine subcutaneously. Subsequently, a 20-gauge Tuohy epidural needle was inserted and advanced toward the epidural space using the ``Loss of resistance technique and guided by AP and lateral fluoroscopy, after negative aspiration for blood and CSF and in the absence of paresthesias. Again after negative aspiration, a 6 ml mixture containing 80 mg of Depo-medrol , and 2 ml of preservative free Normal Saline, and 2 ml of preservative free lidocaine 1% solution was injected and a washout of epidurogram was seen. Needle was withdrawn intact, skin was cleansed, and bandages were applied. COMPLICATIONS: None DISPOSITION / PLANS: The patient was placed in a supine position and transferred to the recovery area in a stable condition for observation. There was no evidence of lower extremity motor or sensory deficit after the procedure. Patient was discharged from the recovery room after meeting discharge criteria. Home discharge instructions were given to the patient by the staff. The patient was reexamined prior to discharge. The patient will schedule a follow up in the clinic in 2-4 weeks. note= Isovue was not injected because patient had ALLERGY to iodine.
[2021-07-07] MEDS ORDERED: IV FLUID CONTINUATION 1,000 ML IV ONE (07:51)
[2021-07-07 08:09] VITALS: BP 102/67; PULSE 69
--- NOTE | 2021-07-07 08:18 | FL ---
EXAMINATION TYPE: FL guided pain mgmt statistic DATE OF EXAM: 07/07/2021 CLINICAL HISTORY: Low back pain. TECHNIQUE: Fluoroscopy. COMPARISON: None. FINDINGS: Fluoroscopic guidance was provided during pain relief procedure performed by Dr. Hall . A total of 3 seconds of fluoroscopic time was utilized during the procedure and 1 spot images are acquired. Single image acquired shows needle localization at roughly L4-L5 level. IMPRESSION: As Above.
== END 2021-07-07 08:20 | disposition home or self-care (01) ==
LOC: ORPAIN 07:06
PROVIDERS: ATTEND Specialist
DX: M48.061 Spinal stenosis, lumbar region without neurogenic claudication (principal); M71.38 Other bursal cyst, other site
CPT/HCPCS: 62323; J2250; J1030; J3010

== ENCOUNTER 2021-08-01 08:14 | Day surgery (SDC) | payer BC ==
[2021-07-29 08:48] VITALS: BMI 24.7
--- NOTE | 2021-08-01 07:56 | P.GSHP ---
History of Present Illness H&P Date: 08/01/21 Chief Complaint: Chronic cholecystitis 56-year-old female known to our office. Patient with a history of known gallstones. Had a CAT scan performed April 2020 showing a 2 x 1 cm gallstone. At that time the patient was actually passing a left kidney stone. Patient having mild discomfort in her abdomen at times. Some diarrhea and some nausea. Symptoms often wake her up in the middle of the night with upper abdominal pain. No change in the color of her skin urine or stool. Patient considering a abdominoplasty future. Past Medical History Past Medical History: Asthma, GI Bleed, Hypertension Additional Past Medical History / Comment(s): IBS, polymyalgia rheumatica, Hx hematuria (unknown cause), states pain buttocks and upper thighs. History of Any Multi-Drug Resistant Organisms: None Reported Past Surgical History: Hernia Repair, Tonsillectomy Additional Past Surgical History / Comment(s): Lasik eye surgery., bilateral carpal tunnel release, cystoscopy, laparoscopic ovarian cystectomy 1989. Colonoscopy ., inguinal hernia. PAIN CLINIC PROCEDURE Past Anesthesia/Blood Transfusion Reactions: No Reported Reaction Smoking Status: Never smoker - Past Family History Father Family Medical History: Myocardial Infarction ([place]) Additional Family Medical History / Comment(s): Great maternal aunt had breast cancer. Medications and Allergies Home Medications Medication Instructions Recorded Confirmed Type Lisinopril-Hctz 10-12.5 mg 1 tab PO DAILY 04/01/19 07/29/21 History [Zestoretic 10-12.5] predniSONE 5 mg PO DAILY 04/07/20 07/29/21 History Calcium Carbonate [Calcium] 600 mg PO DAILY 05/26/21 07/29/21 History Cholecalciferol [Vitamin D3 (25 1 tab PO DAILY 05/26/21 07/29/21 History Mcg = 1000 Iu)] Potassium Chloride ER [K-Dur 20] 20 meq PO DAILY 05/26/21 07/29/21 History Atorvastatin [Lipitor] 20 mg PO DAILY 07/05/21 07/29/21 History Sarilumab [Kevzara] 200 mg SQ Q14D 07/29/21 07/29/21 History Allergies Allergy/AdvReac Type Severity Reaction Status Date / Time Iodinated Contrast Media AdvReac hives Verified 07/29/21 08:40 [Iodinated Contrast Media - IV Dye] Surgical - Exam Physical exam: General: Well-developed, well-nourished HEENT: Normocephalic, sclerae nonicteric Abdomen: Nontender, nondistended, mild upper abdominal diastases recti Extremities: No edema Neuro: Alert and oriented Assessment and Plan (1) Chronic cholecystitis Narrative/Plan: Will proceed with laparoscopic, possible open cholecystectomy at this time. Risks of bleeding, infection, bile leak, bile duct injury, retained common bile duct stone, trocar injury, conversion to an open procedure, hernia, anesthesia related complications were reviewed. The patient understands and wishes to proceed. Status: Acute Code(s): K81.1 - CHRONIC CHOLECYSTITIS SNOMED Code(s): 38101333
[~2021-08-01 08:14] MED LIST changes: +ACETAMINOPHEN TAB 500 MG TAB PO PRN; +DEXAMETHASONE SOD PHOSPHATE 4 MG/ML 1 ML VIAL IV ONE; +HEPARIN SODIUM,PORCINE/PF 5,000 UNIT/0.5 ML SYRINGE SQ PRN; +HYDROmorphone 0.5 MG/0.5 ML SYRINGE IVP PRN; +LIDOCAINE 1% (10MG/ML) FOR IV START INTRADERMA PRN; +MIDAZOLAM 2 MG/2 ML VIAL IV PRN; +ONDANSETRON 4 MG/2 ML VIAL IVP ONE
[2021-08-01 09:16] LABS: Basophils # (A) 0.1 k/uL (0-0.2); Basophils % (A) 1 %; Eosinophils # (A) 0.1 k/uL (0-0.7); Eosinophils % (A) 1 %; HCT 43.1 % (34.0-46.0); HGB 14.5 gm/dL (11.4-16.0); Lymphocytes # (A) 1.4 k/uL (1.0-4.8); Lymphocytes % (A) 18 %; MCH 32.3 pg (25.0-35.0); MCHC 33.7 g/dL (31.0-37.0); MCV 95.7 fL (80.0-100.0); Mean Platelet Volume 7.5; Monocytes # (A) 0.4 k/uL (0-1.0); Monocytes % (A) 5 %; Neutrophils # (A) 5.5 k/uL (1.3-7.7); Neutrophils % (A) 74 %; Platelet Count 232 k/uL (150-450); RDW 11.7 % (11.5-15.5); WBC 7.5 k/uL (3.8-10.6)
[2021-08-01 09:33] LABS: Albumin 4.2 g/dL (3.5-5.0); Calcium 9.1 mg/dL (8.4-10.2); Potassium 3.8 mmol/L (3.5-5.1); Total Bilirubin 0.8 mg/dL (0.2-1.3); Total Protein 6.9 g/dL (6.3-8.2)
[2021-08-01] MEDS ORDERED: BUPIVACAIN-EPI 0.25%-1:200,000 30 ML VIAL SQ ONE ×2 (09:49→10:13)
[2021-08-01] MEDS ORDERED: GLYCOPYRROLATE 0.2 MG/ML 2 ML VIAL ONE (09:52)
[2021-08-01] MEDS ORDERED: SUCCINYLCHOLINE CHLORIDE 100 MG/5 ML SYR IV ONE (09:52)
[2021-08-01] MEDS ORDERED: ROCURONIUM 10 MG/ML (5 ML VIAL) IV ONE (09:52)
[2021-08-01] MEDS ORDERED: PHENYLEPHRINE-0.9% NACL SYG 1,000 MCG/10 ML SYRINGE ONE (09:52)
[2021-08-01] MEDS ORDERED: fentaNYL (PF) 50 MCG/ML 2 ML AMP ONE (09:52)
[2021-08-01] MEDS ORDERED: PROPOFOL 10 MG/ML 20 ML VIAL IV ONE (09:52)
[2021-08-01] MEDS ORDERED: NEOSTIGMINE 1 MG/ML 10 ML VIAL ONE (09:52)
[2021-08-01] MEDS ORDERED: LIDOCAINE 1% INJ 10MG/ML (20 ML MDV) ONE (09:52)
[2021-08-01] MEDS ORDERED: MIDAZOLAM 2 MG/2 ML VIAL ONE (09:52)
--- NOTE | 2021-08-01 10:48 | P.OP ---
Date of Procedure: 08/01/21 Procedure(s) Performed: PREOPERATIVE DIAGNOSIS: Chronic cholecystitis POSTOPERATIVE DIAGNOSIS: Same PROCEDURE: Laparoscopic cholecystectomy SURGEON: Kee EBL: Minimal see anesthesia record ANESTHESIA: Gen. COMPLICATIONS: None OPERATIVE PROCEDURE: The patient was brought and placed on the operating room table in the supine position. The patient was placed under general anesthesia at that time. The abdomen was prepped and draped in the usual sterile fashion. A small curvilinear infraumbilical incision was made. The fascia was grasped with the Tana forceps. The fascia was retracted anteriorly. The Veress needle was advanced into the peritoneal cavity. The saline drop test was normal. Insufflation took place up to 15 mmHg. A 5 mm optical trocar was advanced and the peritoneal cavity. 2 additional 5 mm trochars were placed in the right upper quadrant under direct visualization. A 12 mm trocar was advanced into the epigastric incision site. The gallbladder was retracted superiorly and laterally. The peritoneum overlying the infundibulum was bluntly dissected. The patient's cystic duct was visualized. The junction between the cystic duct common and hepatic duct was identified. The critical view of safety was achieved after blunt dissection. The cystic duct was then divided after placement of 3 12 mm clips on the patient's side and one on the specimen side. The cystic artery was identified and clipped as well. A small vessel was seen along the gallbladder fossa and clipped as well. The gallbladder was then removed from the liver bed using electrocautery. The gallbladder was then removed from the epigastric trocar site with an Endo Catch bag. The gallbladder fossa was irrigated with saline. There was no evidence of any bleeding or biliary drainage seen. The fascia at the 12 millimeter site was closed using a Gene-Alessio 0 Vicryl stitch. The trochars were then removed. The skin at all 4 sites was closed using a 4-0 Monocryl stitch. Skin glue was utilized on the incision sites. At the end of this procedure the sponge and needle counts were correct. DISPOSITION: Stable to the recovery room
[2021-08-01 11:02] VITALS: TEMP 98
[2021-08-01 11:37] VITALS: RESP 16
[2021-08-01] MEDS ORDERED: ACETAMINOPHEN TAB 325 MG TAB PO SCH (12:00)
[2021-08-01 12:03] VITALS: BP 98/63; PULSE 80
[2021-08-01] MEDS ORDERED: ONDANSETRON 4 MG/2 ML VIAL ONE (12:27)
[2021-08-01] MEDS ORDERED: ONDANSETRON 4 MG/2 ML VIAL IVP ONE (12:33)
[2021-08-01] MEDS ORDERED: IBUPROFEN 600 MG TAB PO SCH (14:00)
== END 2021-08-01 12:52 | disposition home or self-care (01) ==
LOC: OR 08:14
PROVIDERS: ATTEND Surgery
DX: K81.1 Chronic cholecystitis (principal); J45.909 Unspecified asthma, uncomplicated; E78.5 Hyperlipidemia, unspecified; I10 Essential (primary) hypertension; M19.90 Unspecified osteoarthritis, unspecified site; Z82.49 Family history of ischemic heart disease and other diseases of the circulatory system
CPT/HCPCS: 47562; 88304; 80053; 85025; J2250; J1100; J2710; J0690; J2405; J2001; J3010; J2370; J0330; J2704; J1644

== ENCOUNTER → 2021-08-03 | Outpatient (CLI) | payer BC ==
--- NOTE | 2021-08-03 11:28 | P.PN ---
Subjective Progress Note Date: 08/03/21 Principal diagnosis: A 56 yr old female with a history of severe and chronic low back pain secondary to lumbar degenerative disc diseases and lumbar spondylosis with facet arthropathy presents today for valuation status post LESI L4-L5 #1. Patient states she expressed 80% pain relief status post procedure and continues to have significant pain relief today. Pain level is 2 out of 10 in intensity, sharp, stinging, burning in the lower aspect of her lumbar spine above the tailbone with radiation of pain to left and right of midline towards the paraspinal muscles bilaterally. Pain is provoked by weight bearing or pushing with the upper extremities. Pain is alleviated with medications, topicals, injections, heat, home exercise regimen, repositioning and rest. Interventional pain procedures completed include LESI L4-L5 #1 Patient is currently on Motrin OTC Patient denies any side effects of the medication(s), denies excessive drowsiness or sleepiness, denies suicidal ideation and reports that the current pain medication is helping to control the pain and improve activities of daily living. Patient denies any motor or sensory deficits. Patient denies any fever or night sweats, denies any change in the bowel movements or urination. Physical Examination: -Constitutional: Cooperative. Not in acute distress . -HEENT: Neck is supple. No lymphadenopathy. No thyromegaly. Normal thyroid size. Eyes: No ptosis , no icterus, no photophobia. ENT: No auditory deficits. Normal oropharynx. No Thrush. - Respiratory: Chest clear to auscultations bilaterally. No wheezing. No rhonchi. - Cardiovascular: Regular rate and rhythm. S1 / S2 , no S3 , no S4. - Gastrointestinal: Abdomen soft no tenderness. Bowel sounds positive in all four quadrants. No organomegaly. - Genitourinary: Deferred. - Neurologic: Cranial nerve II to XII intact. No focal neurological deficits. - Psychatric: Alert & oriented x 3. Matching mood & appropriate affect. Judgment and insight intact. - Lymphatic: No Lymphadenopathy. - Musculoskeletal: Cervical spine: Muscle bulk/ tone/ strength in the bilateral upper extremities normal. Facet loading test cervical area positive. Lumbar spine: Motor bulk/ tone/ strength lower extremities , thigh and legs : 5/5 Deep tendon reflexes : Normal Knee Jerk. Normal Ankle Jerk . Vertebral body tenderness to palpation over L4 Lumbar Facet Loading Test positive Straight Leg Raise: positive at 30 degrees right side/ left side Gaenslen's Test positive Sacral spine : Severe tenderness over the Sacroiliac joint: right side / left side Range of motion: Flexion of the lumbar spine <60 degrees Range of motion: Extension of the lumbar spine <20 degrees Gaenslen's Test positive Janet test: positive right side / left side Assessment and plan: Chronic low back pain secondary to lumbar degenerative disc disease , lumbar spondylosis with facet arthropathy without myelopathy Recommendation of LESI L4-L5 #2 Risks, benefits of procedure discussed and patient verbalized understanding Denies anticoagulant use. Denies medical history of diabetes mellitus. All patient questions answered MAPS reviewed and it was appropriate. I have spent 31 minutes on patient care today. Dr Hall was available by phone for the evaluation of this patient. The time was used to review the medical records including relevant urine studies and Prescription history (MAPs), review of the available imaging, evaluation and examination of the germain ent, coordination of care with the medical staff and if applicable referring physicians, as well as creation of the medical record Objective - Vital Signs Vital signs: Intake & Output 08/02/21 08/03/21 08/03/21 18:59 06:59 18:59 Weight 61.235 kg PQRS Measure Charge Sheet PQRS Narrative: Smoking Status Never smoker Hx Alcohol Use (MH) No Home Medications: Ambulatory Orders Lisinopril-Hctz 10-12.5 mg [Zestoretic 10-12.5] 1 tab PO DAILY 04/01/19 predniSONE 5 mg PO DAILY 04/07/20 Calcium Carbonate [Calcium] 600 mg PO DAILY 05/26/21 Cholecalciferol [Vitamin D3 (25 Mcg = 1000 Iu)] 1 tab PO DAILY 05/26/21 Potassium Chloride ER [K-Dur 20] 20 meq PO DAILY 05/26/21 Atorvastatin [Lipitor] 20 mg PO DAILY 07/05/21 Sarilumab [Kevzara] 200 mg SQ Q14D 07/29/21 oxyCODONE HCL [OxyIR] 5 mg PO Q6H PRN 3 Days #6 tab 08/01/21
[2021-08-03 12:57] VITALS: BP 126/72; PULSE 83; RESP 18; TEMP 98.4
== END ==
LOC: PNWHC3 10:57
PROVIDERS: ATTEND Physician Assistant Medical
DX: G89.29 Other chronic pain (principal); M51.36 Other intervertebral disc degeneration, lumbar region; M47.816 Spondylosis without myelopathy or radiculopathy, lumbar region; Z91.041 Radiographic dye allergy status
CPT/HCPCS: 99211

== ENCOUNTER 2021-08-26 10:29 | Emergency (ER) | payer BC ==
--- NOTE | 2021-08-26 10:55 | ED ---
General Adult HPI - General Chief complaint: Chest Pain Stated complaint: fever Time Seen by Provider: 08/26/21 10:29 Source: patient Mode of arrival: ambulatory Limitations: no limitations - History of Present Illness Initial comments: Dictation was produced using [employer] dictation software. please excuse any grammatical, word or spelling errors. Chief Complaint: 56-year-old male past medical history asthma, GI bleed hypertension, polymyalgia this emergency department for postoperative fever. History of Present Illness: 56-year-old female presents today with postoperative fever. Patient's 9 days postop for abdominal wall diasthesis repair performed at [facility]. She still has 2 YASIR drains that have been draining serosan guineous fluid. She woke up this morning with fever of approximately 103. Patient will hours after waking up develop chest pain that radiated to her back. She denies that it feels pleuritic. She has not been coughing. Denies any sore throat and runny nose. No obvious sick contacts. Last month patient had laparoscopic cholecystectomy. She denies any upper abdominal pain. Patient states she does have some postoperative pain that feels much better and the swelling has improved. Denies any urinary symptoms. Denies any calf tenderness. No medial thigh tenderness or popliteal tenderness. Patient denies any history of blood clots. She was tested earlier today for influenza, covered and RSV however does results are not available yet. Patient states her primary issue is chest pain. Left anterior chest. Feels sharp and nonpleuritic. Rates to the back. Does not radiate down the extremities. Patient noticed hives earlier this morning to her back and anterior chest. The ROS documented in this emergency department record has been reviewed and confirmed by me. Those systems with pertinent positive or negative responses have been documented in the HPI. All other systems are other negative and/or noncontributory. PHYSICAL EXAM: General Impression: Alert and oriented x3, not in acute distress HEENT: Normocephalic atraumatic, extra-ocular movements intact, pupils equal and reactive to light bilaterally, mucous membranes moist. Cardiovascular: Heart regular rate and rhythm Chest: Able to complete full sentences, no retractions, no tachypnea, lungs clear to auscultation bilaterally, no egophony Abdomen: abdomen soft, mild tenderness around the surgical sites, non-distended, no organomegaly, negative Ortiz's, no tenderness in the left upper quadrant, no tenderness in right upper quadrant, slight tenderness over the left inguinal region. Drain sites are clean dry and intact, YASIR drains have serosanguineous fluid Musculoskeletal: Pulses present and equal in all extremities, no peripheral edema Motor: no focal deficits noted Neurological: CN II-XII grossly intact, no focal motor or sensory deficits noted Skin: Intact with no visualized rashes Psych: Normal affect and mood ED course: 56-year-old female presents to the emergency department for chest pain and fever. Patient is postop day 94 abdominal wall surgery to repair abdominal wall diastasis. Point of care bedside ultrasound was performed at the bedside showing slight layering fluid collection in the abdominal wall but no anechoic pockets to strongly suggest abscess. There is very minimal cobbl estoning in the left lower abdomen. Otherwise care bedside ultrasound does not suggest any abdominal wall infection. YASIR drains have serosanguineous fluid. Patient does have chest pain however does not have any respiratory infectious symptoms. She did take Motrin, prior to coming to the emergency department. At this point there is minimal concern for pulmonary embolus given that patient has no lower extremity symptoms. She did not have intra-abdominal surgery were operation was performed around the large veins of the pelvis or abdomen. She has no symptoms of DVT. EKG interpretation: Ventricular rate he 1, sinus rhythm, OH interval 145, QS 85, QTc 387. No OH prolongation, no QTC prolongation, no ST or T-wave changes noted. EKG compared to 06/03/2020 showing no changes. Overall, this EKG is unremarkable Laboratory evaluation obtained. Mild leukocytosis 17.0 which is 15.1. Patient low dose steroids to treat suspicions of autoimmune inflammatory disease. Coag panel is negative. Metabolic panel is within acceptable limits. Troponin is negative. Urinalysis does not suggest UTI. D-dimer is elevated however at 2.47. Patient's for panel viral PCR is negative for influenza, chest x-ray is nonacute. Given patient's elevated d-dimer and postoperative fever is concern of postoperative bacterial infection and PE. CT angios the chest and CT abdomen and pelvis showed no PE. There was suspicion of hematoma anterior abdomen. No stranding around the surgical site to suggest inflammation. There was however some ill-defined fluid along the course of the distal esophagus of uncertain etiology is a concern for esophagitis. Patient is given GI cocktail with im provement of her symptoms. Patient's vitals were trended and remained stable condition. She did have some slight hypotension after being given 2 mg of morphine. Patient reevaluated 1:30 PM found to be in stable medical condition. This point extensive workup was performed to rule out life-threatening issues regarding postoperative fever. Patient clear for discharge. Patient discharged in the care of her who is an emergency doctor. - Related Data Home Medications Medication Instructions Recorded Confirmed Lisinopril-Hctz 10-12.5 mg 1 tab PO DAILY 04/01/19 08/26/21 [Zestoretic 10-12.5] predniSONE 5 mg PO DAILY 04/07/20 08/26/21 Calcium Carbonate [Calcium] 600 mg PO DAILY 05/26/21 08/26/21 Cholecalciferol [Vitamin D3 (25 25 mcg PO DAILY 05/26/21 08/26/21 Mcg = 1000 Iu)] Potassium Chloride ER [K-Dur 20] 20 meq PO DAILY 05/26/21 08/26/21 Atorvastatin [Lipitor] 20 mg PO DAILY 07/05/21 08/26/21 Sarilumab [Kevzara] 200 mg SQ Q14D 07/29/21 08/26/21 HYDROcodone/APAP 5-325MG [[place] 1 tab PO Q6H PRN 08/26/21 08/26/21 5-325] Allergies Allergy/AdvReac Type Severity Reaction Status Date / Time Iodinated Contrast Media Allergy hives Verified 08/26/21 11:41 [Iodinated Contrast Media - IV Dye] Review of Systems ROS Statement: Those systems with pertinent positive or pertinent negative responses have been documented in the HPI. ROS Other: All systems not noted in ROS Statement are negative. Past Medical History Past Medical History: Asthma, GI Bleed, Hypertension Additional Past Medical History / Comment(s): IBS, polymyalgia rheumatica, Hx hematuria (unknown cause), states pain buttocks and upper thighs. History of Any Multi-Drug Resistant Organisms: None Reported Past Surgical History: Hernia Repair, Tonsillectomy Additional Past Surgical History / Comment(s): Lasik eye surgery., bilateral carpal tunnel release, cystoscopy, laparoscopic ovarian cystectomy 1989. Colonoscopy ., inguinal hernia. PAIN CLINIC PROCEDURE Past Anesthesia/Blood Transfusion Reactions: No Reported Reaction Past Psychological History: No Psychological Hx Reported Smoking Status: Never smoker Past Alcohol Use History: Occasional Past Drug Use History: None Reported - Past Family History Father Family Medical History: Myocardial Infarction ([place]) Additional Family Medical History / Comment(s): Great maternal aunt had breast cancer. General Exam Limitations: no limitations Course Vital Signs 08/26/21 08/26/21 08/26/21 10:36 12:15 12:36 Temperature 99.1 F Pulse Rate 108 H 88 79 Respiratory 20 18 15 Rate Blood Pressure 135/69 97/54 94/59 O2 Sat by Pulse 97 97 97 Oximetry 08/26/21 08/26/21 13:17 13:18 Temperature 99.2 F Pulse Rate 90 Respiratory 16 Rate Blood Pressure 104/61 O2 Sat by Pulse 96 Oximetry Medical Decision Making - Lab Data Result diagrams: 08/26/21 10:44 08/26/21 10:44 Lab Results 08/26/21 08/26/21 08/26/21 Range/Units 10:44 10:44 10:44 WBC 17.0 H (3.8-10.6) k/uL RBC 4.14 (3.80-5.40) m/uL Hgb 13.1 (11.4-16.0) gm/dL Hct 39.1 (34.0-46.0) % MCV 94.4 (80.0-100.0) fL MCH 31.7 (25.0-35.0) pg MCHC 33.5 (31.0-37.0) g/dL RDW 12.5 (11.5-15.5) % Plt Count 406 (150-450) k/uL MPV 6.9 Neutrophils % 89 % Lymphocytes % 4 % Monocytes % 5 % Eosinophils % 1 % Basophils % 0 % Neutrophils # 15.1 H (1.3-7.7) k/uL Lymphocytes # 0.7 L (1.0-4.8) k/uL Monocytes # 0.8 (0-1.0) k/uL Eosinophils # 0.1 (0-0.7) k/uL Basophils # 0.0 (0-0.2) k/uL PT 9.5 (9.0-12.0) sec INR 0.8 (<1.2) APTT 21.8 L (22.0-30.0) sec D-Dimer 2.47 H (<0.60) mg/L FEU Sodium 133 L (137-145) mmol/L Potassium 4.0 (3.5-5.1) mmol/L Chloride 101 (98-107) mmol/L Carbon Dioxide 26 (22-30) mmol/L Anion Gap 6 mmol/L BUN 14 (7-17) mg/dL Creatinine 0.86 (0.52-1.04) mg/dL Est GFR (CKD-EPI)AfAm 88 (>60 ml/min/1.73 sqM) Est GFR (CKD-EPI)NonAf 76 (>60 ml/min/1.73 sqM) Glucose 127 H (74-99) mg/dL Calcium 9.1 (8.4-10.2) mg/dL Total Bilirubin 0.6 (0.2-1.3) mg/dL AST 21 (14-36) U/L ALT 17 (4-34) U/L Alkaline Phosphatase 51 (38-126) U/L Troponin I (0.000-0.034) ng/mL Total Protein 6.2 L (6.3-8.2) g/dL Albumin 3.5 (3.5-5.0) g/dL Urine Color Urine Appearance (Clear) Urine pH (5.0-8.0) Ur Specific [place] (1.001-1.035) Urine Protein (Negative) Urine Glucose (UA) (Negative) Urine Ketones (Negative) Urine Blood (Negative) Urine Nitrite (Negative) Urine Bilirubin (Negative) Urine Urobilinogen (<2.0) mg/dL Ur Leukocyte Esterase (Negative) Urine RBC (0-5) /hpf Urine WBC (0-5) /hpf Ur Squamous Epith Cells (0-4) /hpf Hyaline Casts (0-2) /lpf Urine Mucus (None) /hpf 08/26/21 08/26/21 Range/Units 10:44 11:30 WBC (3.8-10.6) k/uL RBC (3.80-5.40) m/uL Hgb (11.4-16.0) gm/dL Hct (34.0-46.0) % MCV (80.0-100.0) fL MCH (25.0-35.0) pg MCHC (31.0-37.0) g/dL RDW (11.5-15.5) % Plt Count (150-450) k/uL MPV Neutrophils % % Lymphocytes % % Monocytes % % Eosinophils % % Basophils % % Neutrophils # (1.3-7.7) k/uL Lymphocytes # (1.0-4.8) k/uL Monocytes # (0-1.0) k/uL Eosinophils # (0-0.7) k/uL Basophils # (0-0.2) k/uL PT (9.0-12.0) sec INR (<1.2) APTT (22.0-30.0) sec D-Dimer (<0.60) mg/L FEU Sodium (137-145) mmol/L Potassium (3.5-5.1) mmol/L Chloride (98-107) mmol/L Carbon Dioxide (22-30) mmol/L Anion Gap mmol/L BUN (7-17) mg/dL Creatinine (0.52-1.04) mg/dL Est GFR (CKD-EPI)AfAm (>60 ml/min/1.73 sqM) Est GFR (CKD-EPI)NonAf (>60 ml/min/1.73 sqM) Glucose (74-99) mg/dL Calcium (8.4-10.2) mg/dL Total Bilirubin (0.2-1.3) mg/dL AST (14-36) U/L ALT (4-34) U/L Alkaline Phosphatase (38-126) U/L Troponin I <0.012 (0.000-0.034) ng/mL Total Protein (6.3-8.2) g/dL Albumin (3.5-5.0) g/dL Urine Color Light Yellow Urine Appearance Clear (Clear) Urine pH 5.5 (5.0-8.0) Ur Specific [place] 1.007 (1.001-1.035) Urine Protein Negative (Negative) Urine Glucose (UA) Negative (Negative) Urine Ketones Negative (Negative) Urine Blood Small H (Negative) Urine Nitrite Negative (Negative) Urine Bilirubin Negative (Negative) Urine Urobilinogen <2.0 (<2.0) mg/dL Ur Leukocyte Esterase Trace H (Negative) Urine RBC 2 (0-5) /hpf Urine WBC 2 (0-5) /hpf Ur Squamous Epith Cells 1 (0-4) /hpf Hyaline Casts 1 (0-2) /lpf Urine Mucus Rare H (None) /hpf Disposition Clinical Impression: Chest pain, Postoperative fever Disposition: HOME SELF-CARE Condition: Good Instructions (If sedation given, give patient instructions): Chest Pain (ED), Esophagitis (ED) Is patient prescribed a controlled substance at d/c from ED?: No Referrals: Jon Kwon DO [Primary Care Provider] - 1-2 days
[2021-08-26 10:57] LABS: Basophils % (A) 0 %; Eosinophils # (A) 0.1 k/uL (0-0.7); Eosinophils % (A) 1 %; HCT 39.1 % (34.0-46.0); HGB 13.1 gm/dL (11.4-16.0); Lymphocytes # (A) 0.7 k/uL (1.0-4.8); Lymphocytes % (A) 4 %; MCH 31.7 pg (25.0-35.0); MCHC 33.5 g/dL (31.0-37.0); MCV 94.4 fL (80.0-100.0); Mean Platelet Volume 6.9; Monocytes # (A) 0.8 k/uL (0-1.0); Monocytes % (A) 5 %; Neutrophils # (A) 15.1 k/uL (1.3-7.7); Neutrophils % (A) 89 %; Platelet Count 406 k/uL (150-450); RBC 4.14 m/uL (3.80-5.40); RDW 12.5 % (11.5-15.5)
[2021-08-26 11:09] LABS: Albumin 3.5 g/dL (3.5-5.0); Calcium 9.1 mg/dL (8.4-10.2); Total Bilirubin 0.6 mg/dL (0.2-1.3); Total Protein 6.2 g/dL (6.3-8.2)
[2021-08-26 11:11] LABS: INR 0.8 (<1.2); Prothrombin Time 9.5 sec (9.0-12.0)
[2021-08-26] MEDS ORDERED: diphenhydrAMINE 50 MG/ML 1 ML VIAL IVP STA (11:21)
[2021-08-26] MEDS ORDERED: MORPHINE SULFATE 2 MG/ML SYRINGE IV STA (11:21)
[2021-08-26 11:24] LABS: Partial Thromboplastin Time 21.8 sec (22.0-30.0)
--- NOTE | 2021-08-26 11:41 | XR ---
EXAMINATION TYPE: XR chest 2V DATE OF EXAM: 08/26/2021 COMPARISON: Chest x-ray May 25, 2020. CTA chest June 03, 2020 HISTORY: Chest pain. TECHNIQUE: Frontal and lateral views of the chest are obtained. FINDINGS: There is no suspicious focal air space opacity, pleural effusion, or pneumothorax seen. T he cardiac silhouette size is within normal limits. The osseous structures are intact. Multiple cho lecystectomy clips are now present. IMPRESSION: No acute pulmonary process currently.
[2021-08-26] MEDS ORDERED: ONDANSETRON 4 MG/2 ML VIAL IVP STA (11:42)
[2021-08-26] MEDS ORDERED: methylPREDNISolone SOD SUCCI 125 MG/2 ML VIAL IV STA (12:01)
[2021-08-26] MEDS ORDERED: FAMOTIDINE 20 MG/2 ML VIAL IV STA (12:01)
[2021-08-26 12:03] LABS: Appearance,Urine Clear (Clear); Bilirubin,Urine Negative (Negative); Blood,Urine Small (Negative); Color,Urine Light Yellow; Glucose,Urine (UA) Negative (Negative); Hyaline Casts,Urine 1 /lpf (0-2); Ketones,Urine Negative (Negative); Leukocyte Esterase,Urine Trace (Negative); Mucus,Urine Rare /hpf; Nitrite,Urine Negative (Negative); PH, Urine 5.5 (5.0-8.0); Protein,Urine Negative (Negative); RBC,Urine 2 /hpf (0-5); Specific Gravity,Urine 1.007 (1.001-1.035); Squamous Epithelial Cell,Urine 1 /hpf (0-4); Urobilinogen,Urine <2.0 mg/dL (<2.0); WBC,Urine 2 /hpf (0-5)
--- NOTE | 2021-08-26 12:54 | CT ---
EXAMINATION TYPE: CT angio chest DATE OF EXAM: 08/26/2021 COMPARISON: NEON prior CTA chest June 03, 2020 HISTORY: Chest pains, elevated d-dimer, fever, s/p cholecystectomy CT DLP: 242.2 mGycm. Automated Exposure Control for Dose Reduction was Utilized. CONTRAST: CTA scan of the thorax is performed with IV Contrast, patient injected with 100 mL of Isovue 370, pul monary embolism protocol. MIP Images are created on CT scanner and reviewed. FINDINGS: LUNGS: Some dependent atelectasis in the bilateral lower lobes. No suspicious focal consolidation. No pleural effusion or pneumothorax is seen bilaterally. No suspicious pulmonary masses. Somewhat low l jose volumes. MEDIASTINUM: There is equal contrast in the aorta versus pulmonary artery with most dense contrast in the SVC. No convincing CT evidence for acute pulmonary embolism. No thoracic aortic aneurysm or diss ection is identified . There are no greater than 1 cm hilar or mediastinal lymph nodes. No cardiome lobo or pericardial effusion is seen. OTHER: Please refer to same day CT abdomen report for complete details on the upper abdomen IMPRESSION: No CT evidence for acute pulmonary embolism. No thoracic aortic aneurysm or dissection. N o suspicious acute pulmonary process currently.
--- NOTE | 2021-08-26 13:02 | CT ---
EXAMINATION TYPE: CT abdomen pelvis w con DATE OF EXAM: 08/26/2021 HISTORY: Chest pains, elevated d-dimer, fever, s/p recent cholecystectomy CT DLP: 437.6mGycm Automated Exposure Control for Dose Reduction was Utilized. CONTRAST: CT scan of the abdomen and pelvis is performed without oral but with IV Contrast, patient injected wi th 100-from CTA study mL of Isovue 370. COMPARISON: CT abdomen and pelvis April 07, 2020 FINDINGS: LUNG BASES: Please refer to same day CTA chest report. LIVER/GB: Cholecystectomy clips are now present. Small amount of fluid at level of the gallbladder fo ssa is nonspecific favored postsurgical. PANCREAS: No significant abnormality is seen. SPLEEN: No significant abnormality is seen. ADRENALS: No significant abnormality is seen. KIDNEYS: No significant abnormality is seen. BOWEL: Some ill-defined fluid is now surrounding the distal esophagus less well seen on same day CTA chest study. Low-lying cecum into the right pelvis on current study. No suspicious small or large bow el dilatation. There is poor distention of stomach with moderate to severe diffuse gastric fold promi nence. Few diverticula in the left and sigmoid colon. No surrounding inflammatory changes. UTERUS/ADNEXA: Anteverted uterus redemonstrated. New small to moderate amount of free fluid in pelvic cul-de-sac axial image 79 is nonspecific. LYMPH NODES: No greater than 1cm abdominal or pelvic lymph nodes are appreciated. OSSEOUS STRUCTURES: No significant abnormality is seen. OTHER: Percutaneous drainage catheter terminates in the left anterior abdominal wall coronal image 2. Second percutaneous drainage catheter entering from the right terminates in the left pelvic cutaneou s fat axial image 64. Focal prominent calcified plaque at origin of the celiac artery and SMA sagitta l image 67 for reference. New ill-defined heterogeneous fluid in the midline of the anterior abdominal wall along the rectus sh eath extending posteriorly suspicious for hematoma. Mild subcutaneous edema overlying the pelvis in a horizontal orientation. IMPRESSION: New heterogeneous fullness of the rectus sheath suspicious for rectus sheath hematoma. Ti ny amount of fluid at level of the gallbladder fossa is nonspecific favor postsurgical. Moderate to s evere gastric fold prominence suspicious for gastritis. Some ill-defined fluid along the course of th e distal esophagus of uncertain etiology raises concern for esophagitis.
[2021-08-26] MEDS ORDERED: MAG HYDROX/AL HYDROX/SIMETH 30 ML, HYOSCYAMINE ELIXIR 10 ML, LIDOCAINE VISCOUS 2% 10 ML PO STA ×3 (13:09)
[2021-08-26 13:18] VITALS: TEMP 99.2
[2021-08-26 13:19] VITALS: BP 104/61; PULSE 90; RESP 16
== END 2021-08-26 13:46 | disposition home or self-care (01) ==
LOC: EC 10:29
DX: R50.82 Postprocedural fever (principal); R07.9 Chest pain, unspecified; I10 Essential (primary) hypertension; J45.909 Unspecified asthma, uncomplicated
CPT/HCPCS: 36415; 93005; 85379; 80053; 84484; 85025; 85610; 85730; 81001; 71046; 71275; 74177; 99285; 96374; 96375 ×4; J1200; J2930; J2405; J2270; Q9967

== ENCOUNTER → 2021-08-26 | Outpatient (CLI) | payer BC ==
[2021-08-26 11:07] LABS: Influenza A Not Detected (Not Detectd); Influenza B Not Detected (Not Detectd)
== END | disposition home or self-care (01) ==
LOC: LABWHC1 08:37
PROVIDERS: ATTEND Emergency Medicine
DX: Z20.822 Contact with and (suspected) exposure to COVID-19 (principal)
CPT/HCPCS: 87636

== ENCOUNTER → 2021-10-03 | Outpatient (CLI) | payer BC ==
--- NOTE | 2021-10-04 09:53 | US ---
EXAMINATION TYPE: US abdomen limited DATE OF EXAM: 10/03/2021 COMPARISON: NONE CLINICAL HISTORY: M96.843 MASS VS SEROMA. palpable left of midline, abdominal wall post procedure fluid collection within area of concern, left of midline abdomen = 10.5 x 1.2 x 6.6cm IMPRESSION: Is consistent with seroma along the patient's incision along the anterior abdominal wall , low-level internal echoes may represent debris
== END | disposition home or self-care (01) ==
LOC: RADUSWWP 10:57
PROVIDERS: ATTEND Plastic Surgery
DX: M96.843 Postprocedural seroma of a musculoskeletal structure following other procedure (principal)
CPT/HCPCS: 76705

== ENCOUNTER 2021-10-07 13:30 | Day surgery (SDC) | payer BC ==
[2021-10-07 15:11] VITALS: RESP 18
[2021-10-07 15:12] VITALS: BP 125/79; PULSE 82
--- NOTE | 2021-10-07 15:22 | US ---
EXAMINATION TYPE: US guided soft tissue drainage DATE OF EXAM: 10/07/2021 HISTORY: Seroma postprocedural FINDINGS: Maximal barrier technique was utilized. The skin overlying a suitable path to the fluid wa s localized with ultrasound and the overlying skin prepped and draped. Lidocaine was used for local anesthesia. A skin paris made with a scalpel. Access was gained under direct ultrasound guidance to the fluid with a 21-gauge needle. Ultrasound was utilized using sterile technique. A 0.018 inch wire was advanced. Access site was dilated and an 8-Lao catheter advanced into the seroma. Dark sang uinous fluid returned. Catheter fixed to the skin. Hemostasis achieved. No immediate complication and the patient remained in stable condition. IMPRESSION: STATUS POST ULTRASOUND GUIDED SEROMA DRAINAGE, THIS PROCEDURE WAS PERFORMED BY THE UNDERS IGNED.
== END 2021-10-07 15:15 | disposition home or self-care (01) ==
LOC: RADPROMAIN 13:30
PROVIDERS: ATTEND Plastic Surgery
DX: L76.34 Postprocedural seroma of skin and subcutaneous tissue following other procedure (principal)
CPT/HCPCS: 10030; 76942; 87070; 87075; 87205

== ENCOUNTER 2021-10-25 06:14 | Day surgery (SDC) | payer BC ==
[2021-10-24 11:20] VITALS: BMI 24.3
[2021-10-25] MEDS ORDERED: LACTATED RINGERS 1,000 ML IV SCH (06:45)
[2021-10-25] MEDS ORDERED: LIDOCAINE 1% (10MG/ML) FOR IV START INTRADERMA ONE (06:50)
[2021-10-25 06:54] VITALS: TEMP 97.5
[2021-10-25] MEDS ORDERED: methylPREDNISolone ACETATE 40 MG/ML 1 ML VIAL ONE (06:54)
[2021-10-25] MEDS ORDERED: MIDAZOLAM 2 MG/2 ML VIAL ONE (06:54)
[2021-10-25] MEDS ORDERED: fentaNYL (PF) 50 MCG/ML 2 ML AMP ONE (06:54)
--- NOTE | 2021-10-25 07:08 | P.PCN ---
Date of Procedure: 10/25/21 Description of Procedure: PREOPERATIVE DIAGNOSIS: lumbar radiculopathy POSTOPERATIVE DIAGNOSIS: Lumbar radiculopathy PROCEDURE 1. Lumbar epidural steroid injection under fluoroscopic guidance at the 4/5 level. Imaging: Fluoroscopy was used, images where saved to the medical record ANESTHESIA: Local with 1% lidocaine 5 ml and 2 mg Versed 100 g of fentanyl EBL: Minimal PROCEDURE INDICATION: The patient with low back pain and radiculitis symptoms unresponsive to conservative treatment. Fluoroscopy was used to optimize visualization of the needle placement and to maximize safety. PROCEDURE DESCRIPTION / TECHNIQUE: The patient was seen and identified in the preoperative area. Risks, benefits, complications including but not limited to infections ,bleeding ,allergic reaction to the medications, nerve damage and incomplete pain relief , as well as alternatives to the procedure were discussed with the patient. The patient agreed to proceed with the procedure and signed the consent. IV was started, and vital signs were stable. Patient was taken to the OR and time out was completed. The patient was placed in the prone position on procedure table and a pillow was placed under the abdomen to reduce lumbar lordosis. The lumbosacral area was prepped and draped in the usual sterile fashion. Vitals were closely monitored during the procedure. Using anterior-posterior fluoroscopy, the L 4/5 interlaminar space was identified and the skin over this site was marked and then infiltrated with 1% lidocaine subcutaneously. Subsequently, a 20-gauge Tuohy epidural needle was inserted and advanced toward the epidural space using the Loss of resistance technique and guided by AP and lateral fluoroscopy. The correct needle position in the epidural space was verified with AP, lateral, contralateral views & after negative aspiration for blood and CSF and in the absence of paresthesias. Again after negative aspiration, a 3 ml mixture containing 40mg of depomedrol and 2 ml of preservative free Normal Saline was injected . Needle was withdrawn intact, skin was cleansed, and bandages were applied. COMPLICATIONS: None DISPOSITION / PLANS: The patient was placed in a supine position and transferred to the recovery area in a stable condition for observation. There was no evidence of lower extremity motor or sensory deficit after the procedure. Patient was discharged from the recovery room after meeting discharge criteria. Home discharge instructions were given to the patient by the staff. The patient was reexamined prior to discharge. The patient will follow up as directed.
[2021-10-25] MEDS ORDERED: IV FLUID CONTINUATION 1,000 ML IV ONE ×2 (07:12)
[2021-10-25 07:16] VITALS: RESP 16
[2021-10-25 07:48] VITALS: BP 114/73; PULSE 63
--- NOTE | 2021-10-25 08:10 | FL ---
EXAMINATION TYPE: FL guided pain mgmt statistic DATE OF EXAM: 10/25/2021 CLINICAL HISTORY: Low back pain. TECHNIQUE: Fluoroscopy. COMPARISON: None. FINDINGS: Fluoroscopic guidance was provided during pain relief procedure performed by Dr. Lobo . A total of 2 seconds of fluoroscopic time was utilized during the procedure and 1 spot images are a cquired. Single image acquired shows needle localization at L4-L5 level. IMPRESSION: As Above.
== END 2021-10-25 07:49 | disposition home or self-care (01) ==
LOC: ORPAIN 06:14
PROVIDERS: ATTEND Hospitalist
DX: M54.16 Radiculopathy, lumbar region (principal)
CPT/HCPCS: 62323; J2250; J1030; J3010; 99152

== ENCOUNTER → 2022-01-12 | Outpatient (CLI) | payer BC ==
--- NOTE | 2022-01-12 16:57 | MR ---
EXAMINATION TYPE: MR shoulder RT wo con DATE OF EXAM: 01/12/2022 COMPARISON: No radiographic correlation available. HISTORY: 56-year-old female with right shoulder pain and limited movement for 8 weeks. TECHNIQUE: Multiplanar, multisequence imaging of the right shoulder is performed without contrast. FINDINGS: The long head biceps tendon appears intact but is medially dislocated secondary to a significant attr itional and partial thickness tear of the subscapularis tendon. Some of the articular sided fibers re main intact. There is extensive bursal sided fraying of the supraspinatus tendon along with a 7 mm high-grade burs al sided tear of the far anterior fibers measuring 7 mm AP. The majority of the supraspinatus tendon remains intact. There is edema and fluid which tracks centrally along the supraspinatus myotendinous junction. A coup le loose bodies measuring up to 6 mm seem to be present within this dissecting fluid, refer to michel l image 15 and sagittal image 17. There is additional heterogeneity of the infraspinatus tendon with a shallow 4 x 4 mm bursal sided te ar of the posterior most fibers. Mild fluid within the subacromial/subdeltoid bursa. There is severe degenerative change of the acromioclavicular joint with joint space narrowing, subcho ndral marrow edema, adjacent soft tissue and capsular edema, and prominent marginal spurring. Inferio r spurring impinges onto the underlying myotendinous junction of the supraspinatus. The glenohumeral joint appears intact with physiologic joint fluid. No discrete labral tear given non arthrographic technique and no paralabral cyst. No significant atrophy of the rotator cuff musculature. No Hill-Sachs deformity or os acromiale. Patchy red marrow which can be seen in the setting of anemia, obesity, smoking, and chronic disease. No suspicious bone marrow replacement. IMPRESSION: 1. There appears to be a significant bursal sided and attritional tear of the subscapularis tendon th at allows for medial dislocation of the biceps tendon out of the groove. No tendon dislocation into t he glenohumeral joint itself. 2. Severe bursal sided fraying of the supraspinatus tendon along with a small, partial-thickness burs al sided tear of the far anterior fibers measuring 7 mm AP. There is fluid dissecting centrally along the supraspinatus myotendinous junction. The fluid, interestingly, seems to contain a couple loose b odies measuring up to 6 mm. 3. Donor site for the loose bodies may be from the severely degenerated AC joint. Inferior spurring l ikely contributes to subacromial impingement. 4. No rotator cuff muscle atrophy.
== END | disposition home or self-care (01) ==
LOC: RADMRIMAIN 15:23
PROVIDERS: ATTEND Orthopaedic Surgery
DX: M75.111 Incomplete rotator cuff tear or rupture of right shoulder, not specified as traumatic (principal)

== ENCOUNTER → 2022-04-25 | Outpatient (CLI) | payer BC ==
--- NOTE | 2022-04-25 09:00 | MM ---
Reason for Exam: Screening (asymptomatic). Last mammogram was performed 1 year(s) and 1 month(s) ago. Patient History: Menarche at age 12. First Full-Term at age 26. Postmenopausal. Patient has history of breast feeding. Hormonal Contraceptives, starting at age 38 for 6 years, 1 month. Maternal aunt had breast cancer. Maternal aunt had breast cancer. Risk Values: Susan 5 year model risk: 1.4%. NCI Lifetime model risk: 8.9%. Prior Study Comparison: 01/07/2019 Bilateral Screening Mammogram, [facility]. 02/18/2020 Bilateral Screening Mammogram, [facility]. 03/29/2021 Bilateral Screening Mammogram, [facility]. Tissue Density: The breast tissue is heterogeneously dense. This may lower the sensitivity of mammography. Findings: Analyzed By CAD. Chronic nodularity behind the left nipple. A few benign oil cyst calcifications on both sides. Faint benign vascular calcifications on the right. There is a asymmetric density do not persist on 3-D images and are also unchanged from prior studies. No significant change from prior exams. Overall Assessment: Benign, BI-RAD 2 Management: Screening Mammogram of both breasts in 1 year. 1. Patient should continue monthly self breast exams. 2. A clinical breast exam by your physician is recommended on an annual basis. 3. This exam should not preclude additional follow-up of suspicious palpable abnormalities. Electronically signed and approved by: Federico Evangelista M.D. Radiologist
[2022-04-25 09:06] VITALS: BP 162/90; PULSE 71; RESP 16; TEMP 98
--- NOTE | 2022-04-25 09:46 | P.HPOB ---
History of Present Illness H&P Date: 04/25/22 Chief Complaint: The patient is here for her routine gynecologic exam and ma mmogram. This is a 56-year-old with an LMP of June 2019. The patient is without gynecologic complaints and denies any postmenopausal bleeding. Review of Systems The patient has lost 12 pounds over the last year. Weight loss has been intentional. She denies respiratory, cardiac, or G.I. problems. Past Medical History Past Medical History: Asthma, GI Bleed, Hypertension Additional Past Medical History / Comment(s): IBS, polymyalgia rheumatica. PAST RN ACCESS HISTORY: She has no history of STDs. History of Any Multi-Drug Resistant Organisms: None Reported Past Surgical History: Cholecystectomy, Hernia Repair, Orthopedic Surgery, Tonsillectomy Additional Past Surgical History / Comment(s): Lasik eye surgery., bilateral carpal tunnel release, cystoscopy, laparoscopic ovarian cystectomy 1989. [id number](next after 10yr) ., inguinal hernia. PAIN CLINIC PROCEDURE, Gallbladder removal 08/01/21. Abdominoplasty with repair of upper abdominal wall diastases. Shoulder surgery. 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 - Past Family History Father Family Medical History: Myocardial Infarction (MD) Additional Family Medical History / Comment(s): Great maternal aunt had breast cancer. Medications and Allergies Home Medications Medication Instructions Recorded Confirmed Type predniSONE 5 mg PO DAILY 04/07/20 04/25/22 History Calcium Carbonate [Calcium] 600 mg PO DAILY 05/26/21 04/25/22 History Cholecalciferol [Vitamin D3 (25 25 mcg PO DAILY 05/26/21 04/25/22 History Mcg = 1000 Iu)] Sarilumab [Kevzara] 200 mg SQ Q14D 07/29/21 04/25/22 History Rosuvastatin [Crestor] 10 mg PO DIRECTED 04/25/22 04/25/22 History Allergies Allergy/AdvReac Type Severity Reaction Status Date / Time Iodinated Contrast Media Allergy hives Verified 04/25/22 09:00 [Iodinated Contrast Media - IV Dye] Exam Vital Signs Temp Pulse Resp BP Pulse Ox 04/25/22 09:02 98.0 F 71 16 162/90 99 Intake and Output 04/24/22 04/25/22 04/25/22 22:59 06:59 14:59 Other: Weight 63.957 kg Height 5 feet 2 inches, weight 141 pounds, BMI 25.8. This is a well-developed well-nourished white female who is alert and oriented times 3 in no acute distress. HEENT: Within normal limits. NECK: Supple without mass or thyromegaly. CHEST AND LUNGS: Clear to auscultation. HEART: Regular rate and rhythm. BREASTS: Are without mass or discharge. AXILLARY EXAM: Negative for adenopathy. BACK: Negative for CVA tenderness. ABDOMEN: The abdomen is consistent with her recent abdominoplasty. There is firmness in the upper abdomen in the midline which she states has been this way since her surgery to repair the abdominal wall diastases. This is nontender. The rest of the abdomen is nontender without palpable masses. PELVIC EXAM: Normal external genitalia with minimal atrophy. Cervix and vagina appear normal minimal atrophy. There is no unusual discharge. There is no evidence of prolapse. The uterus is midposition, nongravid size and nontender. There are no palpable adnexal masses or tenderness. RECTAL EXAM: Rectovaginal exam is negative for mass or tenderness and is negative for occult blood. EXTREMITIES: Nontender. IMPRESSION: 1. 56-year-old menopausal female with normal gynecologic exam. 2. Elevated blood pressure. She states her blood pressure medication was discontinued because her blood pressures were better even without medications. PLAN: 1. Pap smear cotest was performed. 2. Self breast awareness was discussed with the patient. We have also discussed symptoms associated with inflammatory breast cancer. 3. Screening mammogram was done today. 4. We have discussed her elevated blood pressure. I have recommended that she check her blood pressures at home on a regular basis and follow-up with Dr. Kwon for blood pressure elevations. 5. She has received a Covid vaccination. 6. She was advised to return in one year for her annual well woman exam.
== END | disposition home or self-care (01) ==
LOC: RADMAMWWP 08:32
PROVIDERS: ATTEND Obstetrics & Gynecology
DX: Z12.31 Encounter for screening mammogram for malignant neoplasm of breast (principal); I10 Essential (primary) hypertension; Z78.0 Asymptomatic menopausal state; Z80.3 Family history of malignant neoplasm of breast
CPT/HCPCS: 77063; 77067

== ENCOUNTER → 2022-05-02 | Outpatient (CLI) | payer BC | END | disposition home or self-care (01) | LOC: RADBDWWP 09:20 | PROVIDERS: ATTEND Internal Medicine Rheumatology | DX: Z53.9 Procedure and treatment not carried out, unspecified reason (principal) ==

== ENCOUNTER → 2022-05-09 | Outpatient (CLI) | payer BC ==
--- NOTE | 2022-05-09 09:25 | BD ---
EXAMINATION TYPE: Axial Bone Density DATE OF EXAM: 05/09/2022 COMPARISON: 2016 CLINICAL HISTORY: 57 years year old Female. ICD-10 CODE: Z79.52 RESIDENTIAL MED USE Height: 5'2 Weight: 140 FRAX RISK QUESTIONS: Glucocorticoids (More than 3mos): y (Ex: prednisone, prednisolone, methylprednisolone, dexamethasone, and hydrocortisone). Secondary Osteoporosis: Rheumatoid Arthritis: y RISK FACTORS HISTORY OF: Diet low in dairy products/other sources of calcium: y Postmenopausal woman: y MEDICATIONS: Prednisone or other steroids: y How Lon years Additional Medications: PMR, crestor, Additional History: EXAM MEASUREMENTS: Bone mineral densitometry was performed using the abcdexperts System. Bone mineral density as measured about the Lumbar spine is: ----- L1-L4(G/cm2): 1.216 T Score Values are as follows: ----- L1: 0.2 ----- L2: 0.2 ----- L3: 0.7 ----- L4: 0.0 ----- L1-L4: 0.3 Bone mineral density has: Decreased -8.9% since study of: 07/18/2016 Bone mineral density about the R hip (g/cm2): 0.994 Bone mineral density about the L hip (g/cm2): 1.041 T Score values are as follows: -----R Neck: -0.3 -----L Neck: 0.0 -----R Total: -0.1 -----L Total: -0.2 Bone mineral density has: Decreased -14.2% since study of: 07/18/2016 FRAX%s: The graph provided illustrates a 9.2% chance for a major osteoporotic fx and a 0.3% chance fo r the hips probability for fx in 10 years time. IMPRESSION: Normal (Values between +1 and -1 indicate normal bone mass). Consider repeating this study in 5 year s or sooner if there is some new clinical indication. NOTE: T-SCORE=SD OF THE YOUNG ADULT MEAN.
== END | disposition home or self-care (01) ==
LOC: LABWHC1 07:19
PROVIDERS: ATTEND Nurse Practitioner Family
DX: Z78.0 Asymptomatic menopausal state (principal); Z79.52 Long term (current) use of systemic steroids
CPT/HCPCS: 77080

== ENCOUNTER → 2022-08-23 | Outpatient (CLI) | payer BC ==
--- NOTE | 2022-08-24 07:14 | MR ---
EXAMINATION TYPE: MR cspine/lspine wo con DATE OF EXAM: 08/23/2022 COMPARISON: Prior MRI cervical spine May 23, 2011 HISTORY: Neck and lower back pain, headaches, RUE/RLE radiculopathy. TECHNIQUE: Multiplanar, multisequence imaging of the cervical and lumbar spine are performed without IV contrast. FINDINGS: Cervical spine: FINDINGS: Sagittal images of the cervical spine show the craniocervical junction to appear within nor mal limits. The cervical and upper thoracic spinal cord is normal in course, caliber, and signal. Th ere is grade 1 retrolisthesis C5 on C6. Moderate to advanced disc space narrowing at this level. Mild disc space narrowing C6-C7 level otherwise the vertebral body and intravertebral disk heights are no rmal. The bone marrow signal intensity is within normal limits. Axial images show C2-C3 level appears within normal limits. Axial images at C3-C4 level show uncovertebral facet degenerative changes bilaterally causing mild bi lateral neural foraminal narrowing. Axial images at C4-C5 level show focal central disc protrusion mildly effacing the anterior thecal sa c and uncovertebral facet degenerative changes causing mild right-sided neural foraminal narrowing. Axial images at C5-C6 levels with spondylolisthesis with broad-based posterior disc protrusion effaci ng the anterior thecal sac nearly at the ventral surface of spinal cord and causing moderate to advan tristian bilateral neural foraminal narrowing. Axial images at C6-C7 levels with broad-based left paracentral disc protrusion effacing the anterolat eral thecal sac and causing mild to moderate left greater than right bilateral neural foraminal narro wing. Axial images at C7-T1 level appear within normal limits. IMPRESSION: Multilevel degenerative change in the cervical spine as detailed above. Most prominent fi ndings noted at C5-C6 level. Findings are new and/or progressed from 2011 MRI. Lumbar spine: Sagittal images of the lumbar spine show vertebral body heights and alignment to appear satisfactory. Multilevel disc desiccation but the disc space heights are maintained. The conus medullaris is norm al in position and signal ending at L1-L2 disc space level. The bone marrow signal intensity is with in normal limits. Axial images show T12-L1 through L3-L4 levels to appear within normal limits. Axial images at L4-L5 levels with moderate broad disc bulge mildly effacing anterior thecal sac and m ild to moderate facet arthropathy and ligamentum flavum hypertrophy. The posterior lateral thecal sac . There is mild to moderate left greater than right bilateral neural foraminal narrowing. Axial images at L5-S1 level mild/moderate facet arthropathy bilaterally. There is tiny central disc p rotrusion. Spinal canal is preserved. Bilateral neural foramina are patent. Incidental round 5 mm T2 hyperintense lesion in the right kidney axial image 24 favoring benign thin- walled cyst. IMPRESSION: Some multilevel degenerative change in the lower lumbar spine as detailed above.
== END | disposition home or self-care (01) ==
LOC: RADMRIMAIN 06:04
PROVIDERS: ATTEND Orthopaedic Surgery Orthopaedic Surgery of the Spine
DX: S16.1XXD Strain of muscle, fascia and tendon at neck level, subsequent encounter (principal); M51.17 Intervertebral disc disorders with radiculopathy, lumbosacral region; M50.123 Cervical disc disorder at C6-C7 level with radiculopathy; M47.27 Other spondylosis with radiculopathy, lumbosacral region; M47.22 Other spondylosis with radiculopathy, cervical region; M99.71 Connective tissue and disc stenosis of intervertebral foramina of cervical region; M99.73 Connective tissue and disc stenosis of intervertebral foramina of lumbar region; M43.12 Spondylolisthesis, cervical region; M25.78 Osteophyte, vertebrae; M79.12 Myalgia of auxiliary muscles, head and neck; Y99.9 Unspecified external cause status
CPT/HCPCS: 72141; 72148

== ENCOUNTER → 2022-09-11 | Outpatient (CLI) | payer BC ==
[2022-09-11 08:56] VITALS: BP 126/80; PULSE 71; RESP 18; TEMP 99.7
--- NOTE | 2022-09-11 16:26 | P.PAINPG ---
PQRS Measure Charge Sheet Comment: A 57 yr old female with a history of severe and chronic LBP secondary to lumbar DDD and spondylosis with facet arthropathy without myelopathy presents today for evaluation s/p TRA L4-L5 in October 2020. Pt states she experienced 80% pain relief x 11 mo s/p procedure. Pain level is provoked at 8/10 in intensity, constant, localized in the lumbar spine, stabbing in character w shooting towards the RLE. Pain is provoked by laying supine. Pain is alleviated with PT integrated w massage x 3 mo which ended in Jun 2022, heat, meds (Ibu), topicals, repositioning and rest. Interventional pain procedures completed include TRA L4-L5 x2 Patient is currently on Ibu Patient denies any side effects of the medication(s), denies excessive drowsiness or sleepiness, denies suicidal ideation and reports that the current pain medication is helping to control the pain and improve activities of daily living. Patient denies any motor or sensory deficits. Patient denies any fever or night sweats, denies any change in the bowel movements or urination. Physical Examination: -Constitutional: Cooperative. Not in acute distress . - Neurologic: Cranial nerve II to XII intact. No focal neurological deficits. - Psychatric: Alert & oriented x 3. Matching mood & appropriate affect. Judgment and insight intact. - Musculoskeletal: Cervical spine: Muscle bulk/ tone/ strength in the bilateral upper extremities normal Vertebral body tenderness to palpation over Spurling test positive Distraction test positive Facet loading test positive TTP Thoracic spine Muscle bulk / tone/ strength in the bilateral paraspinal muscles normal Vertebral body tender to palpation over Facet loading test positive TTP Lumbar spine: Motor bulk/ tone/ strength lower extremities , thigh and legs : 5/5 Deep tendon reflexes : Normal Knee Jerk. Normal Ankle Jerk . Vertebral body tenderness to palpation over L4 Lumbar Facet Loading Test positive Straight Leg Raise: positive at 30 degrees right side/ left side Gaenslen's Test positive Sacral spine : Severe tenderness over the Sacroiliac joint: right side / left side Range of motion: Flexion of the lumbar spine <60 degrees Range of motion: Extension of the lumbar spine <20 degrees Gaenslen's Test positive right side / left side Janet test: positive right side / left side Thigh Thrust Test positive right side / left side Sacral Thrust Test positive right side / left side Imaging: MRI without contrast of the lumbar spine from 08/23/22 reviewed Assessment and plan: Chronic LBP secondary to lumbar DDD, spondylosis with facet arthropathy without myelopathy Recommendation of TRA L4-L5 #1. May need a series of injections for optimal pain relief. Risks, benefits of procedure discussed and pt verbalized understanding. Admits to anticoagulant use or medical history of diabetes. Protocol for discontinuation/ continuation of medications ki procedure discussed. All questions answered. I have spent less than 30 minutes on patient care today. Dr Hall was available by phone for the evaluation of this patient. The time was used to review the medical records including relevant urine studies and Prescription history (MAPs), review of the available imaging, evaluation and examination of the patient, coordination of care with the medical staff and if applicable referring physicians, as well as creation of the medical record PQRS Narrative: Smoking Status Never smoker Hx Alcohol Use (MH) No Home Medications: Ambulatory Orders predniSONE 5 mg PO DAILY 04/07/20 Calcium Carbonate [Calcium] 600 mg PO DAILY 05/26/21 Cholecalciferol [Vitamin D3 (25 Mcg = 1000 Iu)] 25 mcg PO DAILY 05/26/21 Sarilumab [Kevzara] 200 mg SQ Q14D 07/29/21 Rosuvastatin [Crestor] 10 mg PO DIRECTED 04/25/22 Controlled Substance Measures - Controlled Substance Measures Is patient prescribed a controlled substance at discharge?: No
== END ==
LOC: PNWHC3 08:10
PROVIDERS: ATTEND Specialist
DX: M51.15 Intervertebral disc disorders with radiculopathy, thoracolumbar region (principal); M47.25 Other spondylosis with radiculopathy, thoracolumbar region; G89.29 Other chronic pain; Z91.041 Radiographic dye allergy status
CPT/HCPCS: 99211

== ENCOUNTER 2022-10-19 06:24 | Day surgery (SDC) | payer BC ==
[2022-10-16 16:00] VITALS: BMI 24.7
[2022-10-19] MEDS ORDERED: LIDOCAINE 1% (10MG/ML) FOR IV START INTRADERMA PRN (06:40)
[2022-10-19] MEDS ORDERED: LACTATED RINGERS 1,000 ML IV SCH (06:40)
[2022-10-19 06:51] VITALS: RESP 18; TEMP 97.2
[2022-10-19 07:00] LABS: Glucose,Whole Blood 101 mg/dL (70-110)
[2022-10-19] MEDS ORDERED: MIDAZOLAM 2 MG/2 ML VIAL ONE (07:25)
[2022-10-19] MEDS ORDERED: methylPREDNISolone ACETATE 80 MG/ML 1 ML VIAL ONE (07:25)
[2022-10-19] MEDS ORDERED: fentaNYL (PF) 50 MCG/ML 2 ML AMP ONE (07:25)
[2022-10-19] MEDS ORDERED: IV FLUID CONTINUATION 1,000 ML IV ONE (07:34)
--- NOTE | 2022-10-19 07:34 | P.PCN ---
Date of Procedure: 10/19/22 Procedure(s) Performed: PREOPERATIVE DIAGNOSIS: 1- Lumbar spinal stenosis 2-Lumbar synovial cyst at L4-5. 3-lumbar degenerative disc disease POSTOPERATIVE DIAGNOSIS: Same as preop diagnosis. PROCEDURE 1. Lumbar epidural steroid injection under fluoroscopic guidance at the L4-5 level. (Fluoroscopy imaging was available in radiology department) ANESTHESIA: Local with 1% lidocaine 3 ml and , moderate sedation with intravenous Versed 2 mg ,and fentanyle 50 Mcg Sedation started at 0725, ended at 0731 EBL: Minimal PROCEDURE INDICATION: The patient with low back pain and radiculitis symptoms unresponsive to conservative treatment. Fluoroscopy was used to optimize visualization of the needle placement and to maximize safety. PROCEDURE DESCRIPTION / TECHNIQUE: The patient was seen and identified in the preoperative area. Risks, benefits, complications including but not limited to infections ,bleeding ,allergic reaction to the medications ,nerve damage and not complete pain releife , and alternatives were discussed with the patient. The patient agreed to proceed with the procedure and signed the consent. IV was started, and vital signs were stable. Patient was taken to the OR and time out was completed. The patient was placed in the prone position on procedure table and a pillow was placed under the abdomen to reduce lumbar lordosis. The lumbosacral area was prepped and draped in the usual sterile fashion.ere closely monitored during the procedure. Conscious sedation was used during the procedure to decrease patients anxiety. Vital signs was monitered during the entire procedure. Using anterior-posterior fluoroscopy, the L4-5 interlaminar space was identified and the skin over this site was marked and then infiltrated with 1% lidocaine subcutaneously. Subsequently, a 20-gauge Tuohy epidural needle was inserted and advanced toward the epidural space using the ``Loss of resistance technique and guided by AP and lateral fluoroscopy, after negative aspiration for blood and CSF and in the absence of paresthesias. Again after negative aspiration, a 6 ml mixture containing 80 mg of Depo-medrol , and 2 ml of preservative free Normal Saline, and 2 ml of preservative free lidocaine 1% solution was injected and a washout of epidurogram was seen. Needle was withdrawn intact, skin was cleansed, and bandages were applied. COMPLICATIONS: None DISPOSITION / PLANS: The patient was placed in a supine position and transferred to the recovery area in a stable condition for observation. There was no evidence of lower extremity motor or sensory deficit after the procedure. Patient was discharged from the recovery room after meeting discharge criteria. Home discharge instructions were given to the patient by the staff. The patient was reexamined prior to discharge. The patient will schedule a follow up in the clinic in 2-4 weeks. note= Isovue was not injected because patient had ALLERGY to iodine.
--- NOTE | 2022-10-19 07:55 | FL ---
Fluoroscopy INDICATION: Pain FINDINGS: Fluoroscopy time: 2.6 seconds. Total dose area product (DAP) in uGy*m?, mGy*cm? (or similar): 0.08562 Images obtained: 3. IMPRESSIONS: 1. Documentation of fluoroscopy.
[2022-10-19 08:10] VITALS: BP 109/67; PULSE 63
== END 2022-10-19 08:10 | disposition home or self-care (01) ==
LOC: ORPAIN 06:24
PROVIDERS: ATTEND Specialist
DX: M51.16 Intervertebral disc disorders with radiculopathy, lumbar region (principal); M48.061 Spinal stenosis, lumbar region without neurogenic claudication; M71.38 Other bursal cyst, other site; Z91.041 Radiographic dye allergy status
CPT/HCPCS: 62323; J2250; J1040; J3010

== ENCOUNTER → 2022-11-09 | Outpatient (CLI) | payer BC ==
[2022-11-09 12:09] VITALS: BP 143/84; PULSE 83; RESP 18; TEMP 99
--- NOTE | 2022-11-09 14:32 | P.PAINPG ---
Objective - Vital Signs Vital signs: Intake & Output 11/08/22 11/09/22 11/09/22 18:59 06:59 18:59 Weight 63.503 kg PQRS Measure Charge Sheet Comment: A 57 yr old female with a history of severe and chronic LBP secondary to lumbar DDD and spondylosis with facet arthropathy without myelopathy presents today for evaluation s/p TRA L4-L5. Pt states she experienced 90% pain relief x 3 wks s/p procedure. Pain level is provoked at 8 /10 in intensity, constant, localized in the cervical spine, stabbing in character w shooting towards the BL shoulders and BUEs. Pain is provoked by any movement. Pain is alleviated with PT x 6 wks in Winter 2021, hydromassages semi weekly x 3 wks w last visit 1 wk ago, massage therapy weekly x 5 sessions w last visit 1 wks ago, heat, ice, medications, topical, repositioning and rest. Interventional pain procedures completed include TRA L4-L5 Patient is currently on Tyl, Ibu Patient denies any side effects of the medication(s), denies excessive drowsiness or sleepiness, denies suicidal ideation and reports that the current pain medication is helping to control the pain and improve activities of daily living. Patient denies any motor or sensory deficits. Patient denies any fever or night sweats, denies any change in the bowel movements or urination. Physical Examination: -Constitutional: Cooperative. Not in acute distress . - Neurologic: Cranial nerve II to XII intact. No focal neurological deficits. - Psychatric: Alert & oriented x 3. Matching mood & appropriate affect. Judgment and insight intact. - Musculoskeletal: Cervical spine: Muscle bulk/ tone/ strength in the bilateral upper extremities normal Vertebral body tenderness to palpation over C6 Spurling test positive over C6 Distraction test positive Facet loading test positive TTP Thoracic spine Muscle bulk / tone/ strength in the bilateral paraspinal muscles normal Vertebral body tender to palpation over Facet loading test positive TTP Lumbar spine: Motor bulk/ tone/ strength lower extremities , thigh and legs : 5/5 Deep tendon reflexes : Normal Knee Jerk. Normal Ankle Jerk . Vertebral body tenderness to palpation over Santos Test positive Lumbar Facet Loading Test positive Straight Leg Raise: positive at 30 degrees right side/ left side Gaenslen's Test positive Sacral spine : Severe tenderness over the Sacroiliac joint: right side / left side Range of motion: Flexion of the lumbar spine <60 degrees Range of motion: Extension of the lumbar spine <20 degrees Gaenslen's Test positive right side / left side Janet test: positive right side / left side Thigh Thrust Test positive right side / left side Sacral Thrust Test positive right side / left side Imaging: MRI without contrast of the cervical spine from 08/23/22 reviewed Assessment and plan: Chronic neck pain secondary to cervical DDD, spondylosis with facet arthropathy without myelopathy Recommendation of TRA C6-7 #1. May need a series of injections for optimal pain relief. Risks, benefits of procedure discussed and pt verbalized understanding. Admits to anticoagulant use or medical history of diabetes. Protocol for discontinuation/ continuation of medications ki procedure discussed. Minimal anesthesia provided, if clinically indicated, consisting of Versed and Fentanyl. Liberty 5/325mg #12 NR. Use, side effects, adverse reactions and safe storage discussed. All questions answered. I have spent less than 30 minutes on patient care today. Dr Hall was available by phone for the evaluation of this patient. The time was used to review the medical records including relevant urine studies and Prescription history (MAPs), review of the available imaging, evaluation and examination of the patient, coordination of care with the medical staff and if applicable referring physicians, as well as creation of the medical record PQRS Narrative: Smoking Status Never smoker Hx Alcohol Use (MH) No Home Medications: Ambulatory Orders predniSONE 5 mg PO DAILY 04/07/20 Calcium Carbonate [Calcium] 600 mg PO DAILY 05/26/21 Cholecalciferol [Vitamin D3 (25 Mcg = 1000 Iu)] 25 mcg PO DAILY 05/26/21 Rosuvastatin [Crestor] 10 mg PO DIRECTED 04/25/22 Olumiant. Dose Unk 1 tab PO DAILY 10/16/22 HYDROcodone/APAP 5-325MG [Liberty 5-325] 1 tab PO Q6HR PRN 3 Days #12 tab 11/09/22 Controlled Substance Measures - Controlled Substance Measures Is patient prescribed a controlled substance at discharge?: Yes When asked, does pt state using other controlled substances?: No If prescribed controlled substance>3 days was MAPS reviewed?: Prescribed <3 Days If opioid is for acute pain is fill amount 7 days or less?: Yes
== END ==
LOC: PNWHC3 11:16
PROVIDERS: ATTEND Specialist
DX: M50.30 Other cervical disc degeneration, unspecified cervical region (principal); M47.812 Spondylosis without myelopathy or radiculopathy, cervical region; G89.29 Other chronic pain; Z91.041 Radiographic dye allergy status
CPT/HCPCS: 99211

== ENCOUNTER 2022-11-30 12:10 | Day surgery (SDC) | payer BC ==
[~2022-11-30 12:10] MED LIST changes: -ACETAMINOPHEN TAB 500 MG TAB PO PRN; -DEXAMETHASONE SOD PHOSPHATE 4 MG/ML 1 ML VIAL IV ONE; -HEPARIN SODIUM,PORCINE/PF 5,000 UNIT/0.5 ML SYRINGE SQ PRN; -HYDROmorphone 0.5 MG/0.5 ML SYRINGE IVP PRN; -LIDOCAINE 1% (10MG/ML) FOR IV START INTRADERMA PRN; -MIDAZOLAM 2 MG/2 ML VIAL IV PRN; -ONDANSETRON 4 MG/2 ML VIAL IVP ONE
[2022-11-30 13:16] VITALS: TEMP 97.3
[2022-11-30 13:17] LABS: Glucose,Whole Blood 93 mg/dL (70-110)
[2022-11-30] MEDS ORDERED: DEXAMETHASONE SOD PHOSPHATE 10 MG/ML 1 ML VIAL ONE (13:30)
--- NOTE | 2022-11-30 13:36 | P.PCN ---
Date of Procedure: 11/30/22 Procedure(s) Performed: . PROCEDURE 1. Cervical epidural steroid injection under fluoroscopic guidance, C6-7 (fluoroscopy images available in the radiology department ) PREOPERATIVE DIAGNOSIS: 1- Cervical Degenerative Disc Diseases 2- Cervical radiculopathy., 3-cervical spondylosis with cervical Facet arthropathy without myelopathy.4-cervical spinal stenosis POSTOPERATIVE DIAGNOSIS: : 1- Cervical Degenerative Disc Diseases , 2- Cervical radiculopathy. 3-,cervical spondylosis with cervical Facet arthropathy without myelopathy. 4-cervical spinal stenosis ANESTHESIA: Local anesthesia with lidocaine 1% 3 ml only EBL 0 PROCEDURE INDICATION: The patient with neck pain and radiculitis unresponsive to conservative treatment consents for procedure. PROCEDURE DESCRIPTION / TECHNIQUE: The patient was seen and identified in the preoperative area. Risks, benefits, complications, including but not limited to infections ,bleeding , allergic reactions to the medications ,and not complete pain releife, and alternatives were discussed with the patient, the patient agreed to proceed with the procedure and signed the consent. Patient was taken to the OR and time out was completed. The patient was placed in the prone position on the procedure table. A pillow was placed under the patients chest to increase the cervical interlaminar space. The cervical area was prepped and draped in the usual sterile fashion. Vital signs were closely monitored during the procedure. Using anterior-posterior fluoroscopy, the C6-7 interlaminar space was identified and the skin over this site was marked and then infiltrated with 1% lidocaine subcutaneously. Subsequently, a 20-gauge 3-1/2-inch Tuohy epidural needle was inserted and advanced toward the epidural space by means of the ``hanging-drop technique and guided by AP and lateral fluoroscopy, after negative aspiration for blood and CSF and in the absence of paresthesias. then, mixture containing 20 mg Dexamethasone and 2 ml of preservative-free normal saline injected. Needle was withdrawn intact, skin was cleansed, and bandages were applied. Complications= none. Disposition= patient was placed in supine position and transferred to the recovery room area in stable condition and there was no evidence of upper or lower extremity motor or sensory deficit after the procedure patient was discharged from recovery room after discharge criteria met and home discharge instructions was given by the staff and patient will follow with the pain clinic in 2-4 weeks
[2022-11-30 13:42] VITALS: RESP 16
[2022-11-30 13:49] VITALS: BP 131/76; PULSE 84
--- NOTE | 2022-11-30 14:31 | FL ---
Intraoperative/procedural fluoroscopic services were provided. Total fluoroscopy time is 2.6 seconds with a total of 1 submitted images to PACS. Please see the operative/procedural note for further deta ils. DAP: [id number] mGym2
== END 2022-11-30 13:52 | disposition home or self-care (01) ==
LOC: ORPAIN 12:10
PROVIDERS: ATTEND Specialist
DX: M50.123 Cervical disc disorder at C6-C7 level with radiculopathy (principal); M47.22 Other spondylosis with radiculopathy, cervical region; M48.02 Spinal stenosis, cervical region; Z91.048 Other nonmedicinal substance allergy status
CPT/HCPCS: 62321; J1100

== ENCOUNTER → 2023-02-07 | Outpatient (CLI) | payer BC ==
[2023-02-07 09:17] VITALS: BP 119/78; PULSE 89; RESP 15; TEMP 98.2
--- NOTE | 2023-02-07 13:18 | P.PAINPG ---
PQRS Measure Charge Sheet Comment: A 57 yr old female with a history of severe and chronic neck pain and LBP secondary to cervical DDD and spondylosis with facet arthropathy without myelopathy presents today for evaluation s/p TRA C6-C7. Pt states she experienced 90% pain relief x 9 wks s/p procedure. Pain level is provoked at 6 /10 in intensity, constant, localized in the lower lumbar spine, stabbing in character w shooting towards the BLEs. Pain is provoked by any movement. Pain is alleviated with PT x 6 wks in Winter 2021, physician guided home stretches daily since Winter 2021, hydro-massages semi weekly x 3 wks w last visit in Dec 2022, massage therapy weekly w last visit in Dec 2022, heat, ice, medications, topical, repositioning and rest. Pt has a PT script and will start this week. Oswestry axial pain score of 30. Interventional pain procedures completed include TRA L4-L5 x1, C6-C7 x1 Patient is currently on Tyl, Ibu Patient denies any side effects of the medication(s), denies excessive drowsiness or sleepiness, denies suicidal ideation and reports that the current pain medication is helping to control the pain and improve activities of daily living. Patient denies any motor or sensory deficits. Patient denies any fever or night sweats, denies any change in the bowel movements or urination. Physical Examination: -Constitutional: Cooperative. Not in acute distress . - Neurologic: Cranial nerve II to XII intact. No focal neurological deficits. - Psychatric: Alert & oriented x 3. Matching mood & appropriate affect. Judgment and insight intact. - Musculoskeletal: Cervical spine: Muscle bulk/ tone/ strength in the bilateral upper extremities normal Vertebral body tenderness to palpation Spurling test positive Distraction test positive Facet loading test positive TTP Thoracic spine Muscle bulk / tone/ strength in the bilateral paraspinal muscles normal Vertebral body tender to palpation over Facet loading test positive TTP Lumbar spine: Motor bulk/ tone/ strength lower extremities , thigh and legs : 5/5 Deep tendon reflexes : Normal Knee Jerk. Normal Ankle Jerk . Vertebral body tenderness to palpation over Santos Test positive Lumbar Facet Loading Test positive over BL L4-L5, L5-S1 Straight Leg Raise: positive at 30 degrees right side/ left side Gaenslen's Test positive Sacral spine : Severe tenderness over the Sacroiliac joint: right side / left side Range of motion: Flexion of the lumbar spine <60 degrees Range of motion: Extension of the lumbar spine <20 degrees Gaenslen's Test positive right side / left side Janet test: positive right side / left side Thigh Thrust Test positive right side / left side Sacral Thrust Test positive right side / left side Imaging: MRI without contrast of the cervical spine from 08/23/22 reviewed Assessment and plan: Chronic LBP secondary to lumbar DDD, spondylosis with facet arthropathy without myelopathy Recommendation of BL facet block of the medial branches L4-L5, L5-S1 #1. May need a series of injections, up until RFA, for optimal pain relief. Risks, benefits of procedure discussed and pt verbalized understanding. Admits to anticoagulant use or medical history of diabetes. Protocol for discontinuation/ continuation of medications ki procedure discussed. Minimal anesthesia provided, if clinically indicated, consisting of Versed and Fentanyl. [place] 5/325mg #12 NR. Use, side effects, adverse reactions and safe storage discussed. All questions answered. I have spent less than 30 minutes on patient care today. Dr Hall was available by phone for the evaluation of this patient. The time was used to review the medical records including relevant urine studies and Prescription history (MAPs), review of the available imaging, evaluation and examination of the patient, coordination of care with the medical staff and if applicable referring physicians, as well as creation of the medical record PQRS Narrative: Smoking Status Never smoker Hx Alcohol Use (MH) No Home Medications: Ambulatory Orders predniSONE 5 mg PO DAILY 04/07/20 Calcium Carbonate [Calcium] 600 mg PO DAILY 05/26/21 Cholecalciferol [Vitamin D3 (25 Mcg = 1000 Iu)] 25 mcg PO DAILY 05/26/21 Rosuvastatin [Crestor] 10 mg PO DIRECTED 04/25/22 Olumiant. Dose Unk 1 tab PO DAILY 10/16/22 HYDROcodone/APAP 5-325MG [[place] 5-325] 1 tab PO Q6HR PRN 3 Days #12 tab 11/09/22 Controlled Substance Measures - Controlled Substance Measures Is patient prescribed a controlled substance at discharge?: Yes When asked, does pt state using other controlled substances?: No If prescribed controlled substance>3 days was MAPS reviewed?: Prescribed <3 Days
== END ==
LOC: PNWHC3 08:20
PROVIDERS: ATTEND Specialist
DX: M54.2 Cervicalgia (principal); M51.17 Intervertebral disc disorders with radiculopathy, lumbosacral region; M48.02 Spinal stenosis, cervical region; M47.27 Other spondylosis with radiculopathy, lumbosacral region; G89.29 Other chronic pain; Z91.041 Radiographic dye allergy status
CPT/HCPCS: 99211

== ENCOUNTER 2023-02-16 09:38 | Day surgery (SDC) | payer BC ==
[2023-02-15 16:01] VITALS: BMI 27.4
[2023-02-16] MEDS ORDERED: LIDOCAINE 1% (10MG/ML) FOR IV START INTRADERMA PRN (09:47)
[2023-02-16] MEDS ORDERED: LACTATED RINGERS 1,000 ML IV SCH (09:47)
[2023-02-16 09:57] VITALS: RESP 16; TEMP 97.5
[2023-02-16] MEDS ORDERED: ROPIVACAINE 5MG/ML 20ML VIAL ONE (10:19)
[2023-02-16] MEDS ORDERED: methylPREDNISolone ACETATE 40 MG/ML 1 ML VIAL ONE (10:19)
--- NOTE | 2023-02-16 10:34 | P.PCN ---
Date of Procedure: 02/16/23 Procedure(s) Performed: PREOPERATIVE DIAGNOSIS : 1- Lumbar spondylosis with Facet Arthropathy without myelopathy . 2- Lumber degenerative disc disease POSTOPERATIVE DIAGNOSIS: 1- Lumbar spondylosis with Facet Arthropathy without myelopathy . 2- Lumber degenerative disc disease PROCEDURE: Diagnostic bilateral L3 , L4 , and L5 medial branch block under fluoroscopy guidance(fluoroscopy images available in the radiology Department ) ( To target the facet joint between Bilateral L4-5 , and L5-S1 )# 1St ANESTHESIA:local anesthesia with ropivacaine 0.5% 6 mL for skin and subcu infiltration. EBL: Minimal COMPLICATION: None PROCEDURE INDICATION: Chronic low back pain secondary to Facet arthropathy unresponsive to conservative treatment. PROCEDURE DESCRIPTION: the patient was seen and identified in the preop holding area , risks and benefits and possible complications of the procedure and alternative were discussed with the patient, and the patient agreed to proceed with the procedure and signed the consent and vital signs monitored during the procedure and fluoroscopy was used to maximize the benefit and accuracy of the needle placement , patient was taken to the procedure room and placed in prone position vital signs monitored in the back prepped with chlorhexidine X3 then under strict sterile technique using a right oblique fluoroscopy ,the junction of the transverse process and the superior articulating process of the right L3 , L4 , and L5 vertebra which corresponding to the fluoroscopy image of the eye of the [place] dog on the block side for the medial branches and subsequently , after local infiltration of skin and subcu tissuies with Ropivacaine 0.5 % , one mL at each level ,then 22-gauge Quincke-type needles , 3 needle was used , each one of them placed at the junction of the base of the transverse process and the superior articular process at the appropriate level, and the needle was advanced until the periosteum contacted, needle placement confirmed with AP oblique and lateral view and after appropriate needle placement confirmed, and after negative aspiration for heme and CSF and there was no paresthesia 1-1/2 mL of Ropivacaine 0.5% mixed with 20 mg Depo-Medrol , then half mL injected at each level after negative aspiration the needle subsequently removed and the same procedure repeated for the left side at left side at L3 , L4 and L5 levels. At the end of the procedure and the needles removed and a bandage applied after the skin was cleaned the cleaning solution patient taken to recovery room in stable condition and monitors in the recovery room for 20-30 minutes and discharged home in stable condition after discharge criteria met and patient will follow up with the pain clinic in 2-4 weeks
--- NOTE | 2023-02-16 11:24 | FL ---
Fluoroscopy History: LUMBAR SPONDYLOSIS 18 SEC FL TIME. .62167 DAP. -AB/CE
[2023-02-16 15:26] VITALS: BP 134/80; PULSE 69
== END 2023-02-16 10:58 | disposition home or self-care (01) ==
LOC: ORPAIN 09:38
PROVIDERS: ATTEND Specialist
DX: M47.816 Spondylosis without myelopathy or radiculopathy, lumbar region (principal); M51.36 Other intervertebral disc degeneration, lumbar region; G89.29 Other chronic pain; Z91.041 Radiographic dye allergy status
CPT/HCPCS: 64493; 64494; J1030; J2795

== ENCOUNTER → 2023-03-08 | Outpatient (CLI) | payer BC ==
--- NOTE | 2023-03-08 14:56 | P.PAINPG ---
PQRS Measure Charge Sheet Comment: A 57 yr old female with a history of severe and chronic neck pain and LBP secondary to cervical DDD and spondylosis with facet arthropathy without myelopathy presents today for evaluation s/p BL MBB L3-L5 #1. Pt states she experienced 90% pain relief x 3 days s/p procedure. Pain level is provoked at 6 /10 in intensity, constant, localized in the lower lumbar spine, stabbing in character w shooting towards the RLE. Pain is provoked by any movement. Pain is alleviated with PT x 2 wks which she is currently in, physician guided home stretches 5 times weekly since Winter 2021, hydro-massages semi weekly x 3 wks w last visit in Dec 2022, massage therapy weekly w last visit in Dec 2022, heat, ice, medications, topical, repositioning and rest. Oswestry axial pain score of 30. Interventional pain procedures completed include TRA L4-L5 x1, C6-C7 x1, BL MBB L3-L5 x1 Patient is currently on Tyl, Ibu, Toradol Patient denies any side effects of the medication(s), denies excessive drowsiness or sleepiness, denies suicidal ideation and reports that the current pain medication is helping to control the pain and improve activities of daily living. Patient denies any motor or sensory deficits. Patient denies any fever or night sweats, denies any change in the bowel movements or urination. Physical Examination: -Constitutional: Cooperative. Not in acute distress . - Neurologic: Cranial nerve II to XII intact. No focal neurological deficits. - Psychatric: Alert & oriented x 3. Matching mood & appropriate affect. Judgment and insight intact. - Musculoskeletal: Cervical spine: Muscle bulk/ tone/ strength in the bilateral upper extremities normal Vertebral body tenderness to palpation Spurling test positive Distraction test positive Facet loading test positive TTP Thoracic spine Muscle bulk / tone/ strength in the bilateral paraspinal muscles normal Vertebral body tender to palpation over Facet loading test positive TTP Lumbar spine: Motor bulk/ tone/ strength lower extremities , thigh and legs : 5/5 Deep tendon reflexes : Normal Knee Jerk. Normal Ankle Jerk . Vertebral body tenderness to palpation over Santos Test positive Lumbar Facet Loading Test positive over BL L4-L5, L5-S1 Straight Leg Raise: positive at 30 degrees right side/ left side Gaenslen's Test positive Sacral spine : Severe tenderness over the Sacroiliac joint: right side / left side Range of motion: Flexion of the lumbar spine <60 degrees Range of motion: Extension of the lumbar spine <20 degrees Gaenslen's Test positive right side / left side Janet test: positive right side / left side Thigh Thrust Test positive right side / left side Sacral Thrust Test positive right side / left side Imaging: MRI without contrast of the cervical spine from 08/23/22 reviewed Assessment and plan: Chronic LBP secondary to lumbar DDD, spondylosis with facet arthropathy without myelopathy Recommendation of BL facet block of the medial branches L4-L5, L5-S1 #2. May need a series of injections, up until RFA, for optimal pain relief. Risks, benefits of procedure discussed and pt verbalized understanding. Admits to anticoagulant use or medical history of diabetes. Protocol for discontinuation/ continuation of medications ki procedure discussed. Minimal anesthesia provided, if clinically indicated, consisting of Versed and Fentanyl. [place] 5/325mg #12 NR. Use, side effects, adverse reactions and safe storage discussed. All questions answered. I have spent less than 30 minutes on patient care today. Dr Hall was blue ilable by phone for the evaluation of this patient. The time was used to review the medical records including relevant urine studies and Prescription history (MAPs), review of the available imaging, evaluation and examination of the patient, coordination of care with the medical staff and if applicable referring physicians, as well as creation of the medical record PQRS Narrative: Smoking Status Never smoker Hx Alcohol Use (MH) No Home Medications: Ambulatory Orders predniSONE 5 mg PO DAILY 04/07/20 Calcium Carbonate [Calcium] 600 mg PO DAILY 05/26/21 Cholecalciferol [Vitamin D3 (25 Mcg = 1000 Iu)] 25 mcg PO DAILY 05/26/21 Rosuvastatin [Crestor] 10 mg PO MOWEFR 04/25/22 Olumiant. Dose Unk 1 tab PO DAILY 10/16/22 HYDROcodone/APAP 5-325MG [[place] 5-325] 1 tab PO Q6HR PRN 3 Days #12 tab 11/09/22 Lisinopril-Hctz 10-12.5 mg [Zestoretic 10-12.5] 1 tab PO DAILY 02/16/23 Controlled Substance Measures - Controlled Substance Measures Is patient prescribed a controlled substance at discharge?: No
[2023-03-09 08:40] VITALS: BP 134/84; PULSE 80; RESP 16
== END ==
LOC: PNWHC3 14:13
PROVIDERS: ATTEND Specialist
DX: M51.37 Other intervertebral disc degeneration, lumbosacral region (principal); M47.817 Spondylosis without myelopathy or radiculopathy, lumbosacral region; G89.29 Other chronic pain; Z91.041 Radiographic dye allergy status
CPT/HCPCS: 99211

== ENCOUNTER 2023-04-06 06:18 | Day surgery (SDC) | payer BC ==
[2023-04-06] MEDS ORDERED: LACTATED RINGERS 1,000 ML IV SCH ×2 (06:19→07:15)
[2023-04-06] MEDS ORDERED: MIDAZOLAM 2 MG/2 ML VIAL ONE (06:59)
[2023-04-06] MEDS ORDERED: fentaNYL (PF) 50 MCG/ML 2 ML AMP ONE (06:59)
[2023-04-06] MEDS ORDERED: ROPIVACAINE 5MG/ML 20ML VIAL ONE (07:06)
[2023-04-06 07:12] VITALS: TEMP 97
--- NOTE | 2023-04-06 07:31 | P.PCN ---
Date of Procedure: 04/06/23 Description of Procedure: PREOPERATIVE DIAGNOSIS : 1- Lumbar spondylosis with Facet Arthropathy without myelopathy . 2- Lumber degenerative disc disease POSTOPERATIVE DIAGNOSIS: 1- Lumbar spondylosis with Facet Arthropathy without myelopathy . 2- Lumber degenerative disc disease PROCEDURE: Diagnostic bilateral , L4 , and L5 medial branch block under fluoroscopy guidance(fluoroscopy images available in the radiology Department ) ( To target the facet joint between Bilateral L4-5 , and L5-S1 ) ANESTHESIA:, Monitored anesthesia care as per anesthesia. EBL: Minimal COMPLICATION: None PROCEDURE INDICATION: Chronic low back pain secondary to Facet arthropathy unresponsive to conservative treatment. PROCEDURE DESCRIPTION: the patient was seen and identified in the preop holding area , risks and benefits and possible complications of the procedure and alternative were discussed with the patient, and the patient agreed to proceed with the procedure and signed the consent and vital signs monitored during the procedure and fluoroscopy was used to maximize the benefit and accuracy of the needle placement, and sedation was given to decrease patient anxiety, patient was taken to the procedure room and placed in prone position vital signs monitored in the back prepped with chlorhexidine X3 then under strict sterile technique using a right oblique fluoroscopy ,the junction of the transverse process and the superior articulating process of the right L4 , and L5 vertebra which corresponding to the fluoroscopy image of the eye of the [place] dog on the block side for the medial branches and subsequently , after local infiltration of skin and subcu tissuies with Ropivacaine 0.5 % , one mL at each level ,then 22-gauge Quincke-type needles , 3 needle was used , each one of them placed at the junction of the base of the transverse process and the superior articular process at the appropriate level, and the needle was advanced until the periosteum contacted, needle placement confirmed with AP oblique and lateral view and after appropriate needle placement confirmed, and after negative aspiration for heme and CSF and there was no paresthesia then half mL 0.5% ropivacaine injected at each level after negative aspiration the needle subsequently removed and the same procedure repeated for the left side at left side at L4 and L5 levels. At the end of the procedure and the needles removed and a bandage applied after the skin was cleaned the cleaning solution patient taken to recovery room in stable condition and monitors in the recovery room for 20-30 minutes and discharged home in stable condition after discharge criteria met and patient will follow up with the pain clinic in 2-4 weeks
[2023-04-06] MEDS ORDERED: IV FLUID CONTINUATION 700 ML IV ONE (07:32)
[2023-04-06 07:56] VITALS: RESP 18
--- NOTE | 2023-04-06 08:12 | FL ---
EXAMINATION TYPE: FL guided pain mgmt statistic DATE OF EXAM: 04/06/2023 FLUOROSCOPY Fluoroscopy time of 20 seconds was used during bilateral lumbar facet blocks. 7 image/s document/s t he procedure. [id number] Gycm2 DAP
[2023-04-06 08:19] VITALS: BP 114/73; PULSE 78
== END 2023-04-06 08:11 | disposition home or self-care (01) ==
LOC: ORPAIN 06:18
PROVIDERS: ATTEND Pain Medicine Interventional Pain Medicine
DX: M51.36 Other intervertebral disc degeneration, lumbar region (principal); M47.816 Spondylosis without myelopathy or radiculopathy, lumbar region; G89.29 Other chronic pain; I10 Essential (primary) hypertension; E78.5 Hyperlipidemia, unspecified; J45.909 Unspecified asthma, uncomplicated; M19.90 Unspecified osteoarthritis, unspecified site; K58.9 Irritable bowel syndrome, unspecified; Z91.041 Radiographic dye allergy status; Z98.890 Other specified postprocedural states; Z79.899 Other long term (current) drug therapy
CPT/HCPCS: 99211; 64493; 64494 ×2; J2250; J3010; J2795

== ENCOUNTER → 2023-04-09 | Outpatient (CLI) | payer BC ==
[2023-04-09 14:30] VITALS: BP 148/82; PULSE 72; RESP 15; TEMP 98.4
--- NOTE | 2023-04-11 09:54 | P.PAINPG ---
PQRS Measure Charge Sheet Comment: A 57 yr old female with a history of severe and chronic neck pain secondary to cervical DDD and spondylosis with facet arthropathy without myelopathy presents today for evaluation. When she had an TRA of the C6-C7 in Nov 2022, she admits she experienced 100% pain relief x 4 mo s/p procedure. She also brought in her pain diary for the BL MBB L3-L5 where it states she experienced 95% pain relief x 2 day s/p procedure. Pain level is provoked at 7 /10 in intensity, constant, localized in the lower cervical spine, stabbing in character w shooting towards the LUE. Pain is provoked by any movement. Pain is alleviated with PT x 4 wks in Jan 2023, physician guided home stretches 5 times weekly since Jan 2023, hydro- massages semi weekly x 3 wks w last visit in Dec 2022, massage therapy weekly w last visit in Dec 2022, heat, ice, medications, topical, repositioning and rest. Oswestry axial pain score of 28. Interventional pain procedures completed include TRA L4-L5 x1, C6-C7 x1, BL MBB L3-L5 x2 (2nd pending) Patient is currently on [place], Tyl, Ibu, Toradol Patient denies any side effects of the medication(s), denies excessive drowsiness or sleepiness, denies suicidal ideation and reports that the current pain medication is helping to control the pain and improve activities of daily living. Patient denies any motor or sensory deficits. Patient denies any fever or night sweats, denies any change in the bowel movements or urination. Physical Examination: -Constitutional: Cooperative. Not in acute distress . - Neurologic: Cranial nerve II to XII intact. No focal neurological deficits. - Psychatric: Alert & oriented x 3. Matching mood & appropriate affect. Judgment and insight intact. - Musculoskeletal: Cervical spine: Muscle bulk/ tone/ strength in the bilateral upper extremities normal Vertebral body tenderness to palpation over C6 Spurling test positive over BL C6-C7 Distraction test positive Facet loading test positive TTP Thoracic spine Muscle bulk / tone/ strength in the bilateral paraspinal muscles normal Vertebral body tender to palpation over Facet loading test positive TTP Lumbar spine: Motor bulk/ tone/ strength lower extremities , thigh and legs : 5/5 Deep tendon reflexes : Normal Knee Jerk. Normal Ankle Jerk . Vertebral body tenderness to palpation over Santos Test positive Lumbar Facet Loading Test Straight Leg Raise: positive at 30 degrees right side/ left side Gaenslen's Test positive Sacral spine : Severe tenderness over the Sacroiliac joint: right side / left side Range of motion: Flexion of the lumbar spine <60 degrees Range of motion: Extension of the lumbar spine <20 degrees Gaenslen's Test positive right side / left side Janet test: positive right side / left side Thigh Thrust Test positive right side / left side Sacral Thrust Test positive right side / left side Imaging: MRI without contrast of the cervical spine from 08/23/22 reviewed Assessment and plan: Chronic neck pain secondary to DDD, spondylosis with facet arthropathy without myelopathy Recommendation of TRA C6-C7 #2. May need a series of injections for optimal pain relief. Risks, benefits of procedure discussed and pt verbalized understanding. Admits to anticoagulant use or medical history of diabetes. Protocol for discontinuation/ continuation of medications ki procedure discussed. Minimal anesthesia provided, if clinically indicated, consisting of Versed and Fentanyl. [place] 5/325mg #12 NR. Use, side effects, adverse reactions and safe storage discussed. All questions answered. I have spent less than 30 minutes on patient care today. Dr Hall was available by phone for the evaluation of this patient. The time was used to review the medical records including relevant urine studies and Prescription history (MAPs), review of the available imaging, evaluation and examination of the patient, coordination of care with the medical staff and if applicable referring physicians, as well as creation of the medical record PQRS Narrative: Smoking Status Never smoker Hx Alcohol Use (MH) No Home Medications: Ambulatory Orders Calcium Carbonate [Calcium] 600 mg PO QAM 05/26/21 Cholecalciferol [Vitamin D3 (25 Mcg = 1000 Iu)] 25 mcg PO QAM 05/26/21 Rosuvastatin [Crestor] 10 mg PO MOWEFR 04/25/22 Olumiant. Dose Unk 1 tab PO QAM 10/16/22 Lisinopril-Hctz 10-12.5 mg [Zestoretic 10-12.5] 1 tab PO QAM 02/16/23 Controlled Substance Measures - Controlled Substance Measures Is patient prescribed a controlled substance at discharge?: No
== END ==
LOC: PNWHC3 13:55
PROVIDERS: ATTEND Specialist
DX: M50.323 Other cervical disc degeneration at C6-C7 level (principal); M47.812 Spondylosis without myelopathy or radiculopathy, cervical region; G89.29 Other chronic pain; Z91.041 Radiographic dye allergy status
CPT/HCPCS: 99211

== ENCOUNTER → 2023-05-09 | Outpatient (CLI) | payer BC ==
[2023-05-09 11:29] VITALS: BP 137/82; PULSE 72; RESP 16; TEMP 98.7
--- NOTE | 2023-05-09 11:38 | P.HPOB ---
History of Present Illness H&P Date: 05/09/23 Chief Complaint: The patient is here for her routine gynecologic exam and ma mmogram. This is a 58-year-old with an LMP of 2020. The patient is without gynecologic complaints. Review of Systems The patient has gained 19 pounds over the last year. She denies respiratory, cardiac, or G.I. problems. Past Medical History Past Medical History: Hypertension Additional Past Medical History / Comment(s): IBS, polymyalgia rheumatica. PAST COMPENSATION AND BENEFITS ADMINISTRATOR HISTORY: She has no history of STDs. History of Any Multi-Drug Resistant Organisms: None Reported Past Surgical History: Cholecystectomy, Hernia Repair, Orthopedic Surgery, Tonsillectomy Additional Past Surgical History / Comment(s): Lasik eye surgery, bilateral carpal tunnel release, cystoscopy, laparoscopic ovarian cystectomy 1989, colonoscopy 2018(next after 10yr), inguinal hernia, PAIN CLINIC PROCEDURE, abdominoplasty with repair of upper abdominal wall diastases, right shoulder surgery. Past Anesthesia/Blood Transfusion Reactions: No Reported Reaction Past Psychological History: No Psychological Hx Reported Smoking Status: Never smoker Past Alcohol Use History: Occasional (4 drinks per month.) Past Drug Use History: None Reported Additional History: She has been since 1988 and works full-time for a group of ER physicians. - Past Family History Father Family Medical History: Myocardial Infarction ([place]) Additional Family Medical History / Comment(s): Great maternal aunt had breast cancer. Mother Family Medical History: Cancer Additional Family Medical History / Comment(s): Skin cancer. Medications and Allergies Home Medications Medication Instructions Recorded Confirmed Type Calcium Carbonate [Calcium] 600 mg PO QAM 05/26/21 05/09/23 History Cholecalciferol [Vitamin D3 (25 25 mcg PO QAM 05/26/21 05/09/23 History Mcg = 1000 Iu)] Rosuvastatin [Crestor] 10 mg PO MOWEFR 04/25/22 05/09/23 History Olumiant. Dose Unk 1 tab PO QAM 10/16/22 05/09/23 History Lisinopril-Hctz 10-12.5 mg 1 tab PO QAM 02/16/23 05/09/23 History [Zestoretic 10-12.5] [place] 3/6/9 1 tab PO DAILY 05/09/23 05/09/23 History Allergies Allergy/AdvReac Type Severity Reaction Status Date / Time Iodinated Contrast Media Allergy hives Verified 05/09/23 11:07 [Iodinated Contrast Media - IV Dye] Exam Vital Signs Temp Pulse Resp BP Pulse Ox 05/09/23 11:08 98.7 F 72 16 137/82 98 Intake and Output 05/08/23 05/09/23 05/09/23 22:59 06:59 14:59 Other: Weight 73.482 kg Height 5 foot 1 inch, weight 162 pounds, BMI 30.6. This is a well-developed well-nourished white female who is alert and oriented times 3 in no acute distress. HEENT: Within normal limits. NECK: Supple without mass or thyromegaly. CHEST AND LUNGS: Clear to auscultation. HEART: Regular rate and rhythm. BREASTS: Are without mass or discharge. AXILLARY EXAM: Negative for adenopathy. BACK: Negative for CVA tenderness. ABDOMEN: Soft, nontender, without palpable masses. PELVIC EXAM: Normal external genitalia with mild atrophy. Cervix and vagina appear normal with minimal atrophy. There is no unusual discharge. There is no evidence of prolapse. The uterus is midposition, nongravid size and nontender. There are no palpable adnexal masses or tenderness. RECTAL EXAM: Rectovaginal exam is negative for mass or tenderness and is negative for occult blood. EXTREMITIES: Nontender. IMPRESSION: 1. 58-year-old menopausal female with normal gynecologic exam. PLAN: 1. Pap smear was deferred since she had a negative Pap smear cotest on 04/25/2022. 2. Self breast awareness was discussed with the patient. We have also discussed symptoms associated with inflammatory breast cancer. 3. Screening mammogram will be done today. 4. Osteoporosis prevention was discussed. She had a normal bone density test on 07/18/2016 and we will plan on repeating this at age 60. 5. She had shingles earlier this year. We have discussed the shingles vaccination and she will look into getting this. 6. She was advised to return in one year for her annual well woman exam.
== END ==
LOC: WWCWWP 10:47
PROVIDERS: ATTEND Obstetrics & Gynecology
DX: Z12.31 Encounter for screening mammogram for malignant neoplasm of breast (principal); I10 Essential (primary) hypertension; K58.9 Irritable bowel syndrome, unspecified; M35.3 Polymyalgia rheumatica; Z80.3 Family history of malignant neoplasm of breast; Z78.0 Asymptomatic menopausal state; Z91.041 Radiographic dye allergy status; Z79.899 Other long term (current) drug therapy
CPT/HCPCS: 77063; 77067

== ENCOUNTER → 2023-06-03 | Outpatient (CLI) | payer BC ==
[~2023-06-03] MED LIST changes: +DIPH,PERTUS(ACELL)TETVAC-LF 0.5 ML VIAL IM ONE; -LACTATED RINGERS 1,000 ML IV SCH
== END ==
LOC: LABMAIN 08:56
PROVIDERS: ATTEND Emergency Medicine
DX: Z53.9 Procedure and treatment not carried out, unspecified reason (principal)

== ENCOUNTER → 2023-06-07 | Outpatient (CLI) | payer BC ==
[2023-06-07 10:39] VITALS: BP 125/78; PULSE 86; RESP 16; TEMP 97.3
--- NOTE | 2023-06-07 13:28 | P.PAINPG ---
PQRS Measure Charge Sheet Comment: A 57 yr old female with a history of severe and chronic neck pain secondary to lumbar DDD and spondylosis with facet arthropathy without myelopathy presents today for evaluation s/p BL MBB L4-L5, L5-S1 #2 where she admits she experienced 90% pain relief x 1 mo s/p procedure. Pain level is provoked at 7 /10 in intensity, constant, localized in the lower lumbar spine, predominantly axial, stabbing in character w occasional shooting towards the back of the LEs. Pain is provoked by laying supine. Pain is alleviated with PT x 6-8 wks in Feb 2023 (lumbar), physician guided home stretches 5 times weekly since Jan 2023 (cervical and lumbar), hydro-massages semi weekly x 3 wks w last visit in Dec 2022, massage therapy weekly w last visit in Dec 2022, heat, ice, medications, topical, repositioning and rest. Oswestry axial pain score of 27. Interventional pain procedures completed include TRA L4-L5 x1, C6-C7 x1, BL MBB L3-L5 x2 (2nd pending) Patient is currently on [place], Tyl, Ibu, Toradol Patient denies any side effects of the medication(s), denies excessive drowsiness or sleepiness, denies suicidal ideation and reports that the current pain medication is helping to control the pain and improve activities of daily living. Patient denies any motor or sensory deficits. Patient denies any fever or night sweats, denies any change in the bowel movements or urination. Physical Examination: -Constitutional: Cooperative. Not in acute distress . - Neurologic: Cranial nerve II to XII intact. No focal neurological deficits. - Psychatric: Alert & oriented x 3. Matching mood & appropriate affect. Judgment and insight intact. - Musculoskeletal: Cervical spine: Muscle bulk/ tone/ strength in the bilateral upper extremities normal Vertebral body tenderness to palpation Spurling test positive Distraction test positive Facet loading test positive TTP Thoracic spine Muscle bulk / tone/ strength in the bilateral paraspinal muscles normal Vertebral body tender to palpation over Facet loading test positive TTP Lumbar spine: Motor bulk/ tone/ strength lower extremities , thigh and legs : 5/5 Deep tendon reflexes : Normal Knee Jerk. Normal Ankle Jerk . Vertebral body tenderness to palpation over Santos Test positive Lumbar Facet Loading Test over BL L4-L5, L5-S1 Straight Leg Raise: positive at 30 degrees right side/ left side Gaenslen's Test positive Sacral spine : Severe tenderness over the Sacroiliac joint: right side / left side Range of motion: Flexion of the lumbar spine <60 degrees Range of motion: Extension of the lumbar spine <20 degrees Gaenslen's Test positive right side / left side Janet test: positive right side / left side Thigh Thrust Test positive right side / left side Sacral Thrust Test positive right side / left side Imaging: MRI without contrast of the cervical spine from 08/23/22 reviewed Assessment and plan: Chronic LBP secondary to DDD, spondylosis with facet arthropathy without myelopathy Recommendation of BL RFA L4-L5, L5-S1. Exhibited optimal pain relief w previous MBB procedures. Risks, benefits of procedure discussed and pt verbalized understanding. Admits to anticoagulant use or medical history of diabetes. Protocol for discontinuation/ continuation of medications ki procedure discussed. Minimal anesthesia provided, if clinically indicated, consisting of Versed and Fentanyl. Use, side effects, adverse reactions and safe storage discussed. All questions answered. I have spent less than 30 minutes on patient care today. Dr Hall was availab le by phone for the evaluation of this patient. The time was used to review the medical records including relevant urine studies and Prescription history (MAPs), review of the available imaging, evaluation and examination of the patient, coordination of care with the medical staff and if applicable referring physicians, as well as creation of the medical record PQRS Narrative: Smoking Status Never smoker Hx Alcohol Use (MH) No Home Medications: Ambulatory Orders Calcium Carbonate [Calcium] 600 mg PO QAM 05/26/21 Cholecalciferol [Vitamin D3 (25 Mcg = 1000 Iu)] 25 mcg PO QAM 05/26/21 Rosuvastatin [Crestor] 10 mg PO MOWEFR 04/25/22 Olumiant. Dose Unk 1 tab PO QAM 10/16/22 Lisinopril-Hctz 10-12.5 mg [Zestoretic 10-12.5] 1 tab PO QAM 02/16/23 [place] 1 tab PO DAILY 05/09/23 Controlled Substance Measures - Controlled Substance Measures Is patient prescribed a controlled substance at discharge?: No
== END ==
LOC: PNWHC3 10:16
PROVIDERS: ATTEND Specialist
DX: M51.37 Other intervertebral disc degeneration, lumbosacral region (principal); M47.817 Spondylosis without myelopathy or radiculopathy, lumbosacral region; G89.29 Other chronic pain; Z91.041 Radiographic dye allergy status
CPT/HCPCS: 99211

== ENCOUNTER 2023-06-29 11:27 | Day surgery (SDC) | payer BC ==
[~2023-06-29 11:27] MED LIST changes: -DIPH,PERTUS(ACELL)TETVAC-LF 0.5 ML VIAL IM ONE; +LACTATED RINGERS 1,000 ML IV SCH
[2023-06-29] MEDS ORDERED: LACTATED RINGERS 1,000 ML IV ONE ×2 (11:42→12:37)
[2023-06-29 11:47] VITALS: RESP 16; TEMP 96.8
[2023-06-29] MEDS ORDERED: fentaNYL (PF) 50 MCG/ML 2 ML AMP ONE (11:50)
[2023-06-29] MEDS ORDERED: MIDAZOLAM 2 MG/2 ML VIAL ONE (11:50)
[2023-06-29] MEDS ORDERED: ROPIVACAINE 5MG/ML 20ML VIAL ONE (11:53)
--- NOTE | 2023-06-29 12:45 | P.PCN ---
Description of Procedure: Preprocedure diagnosis. 1. Lumbar spondylosis with facet joint arthropathy without myelopathy. 2. Lumbar degenerative disc disease. Procedure diagnosis. 1. Lumbar spondylosis with facet joint arthropathy without myelopathy. Space 2. Lumbar degenerative disc disease. Procedure.Bilateral radiofrequency thermocoagulation L3, L4 and L5 medial branch, with fluoroscopic guidance (fluoroscopy images are available in the radiology department) (to Denervate the facet joint at bilateral L4 5 and L5-S1 levels) Anesthesia. Monitored anesthesia care as per anesthesia department, Moderate sedation with intravenous Versed 2 mg and fentanyl 100 g and local infiltration with ropivacaine 0.5%. In OR, continuous pulse ox, blood pressure, EKG and verbal communication was maintained. EBL minimal. Procedure indication. The patient with low back pain secondary to lumbar facet arthropathy who he had more than 50% relief of her pain with previous diagnostic lumbar medial branch block with local anesthetics. Discussed with the patient about the procedure, alternative treatment, possible complications which may include infection, bleeding, nerve damage, aggravation of pain, all of which could be permanent. Patient understands, all questions were answered. Patient signed consent and agreed to proceed with the procedure. Procedure description/technique. After getting consent, patient was taken to the OR and in prone position. The lumbar area was prepped and draped in the usual sterile fashion. After injecting 5 mL of plain 1% lidocaine subcutaneously, a 18-gauge 100 mm radiofrequency cannula with a 10 mm active tip was introduced under tunnel vision of the fluoroscope at the junction of the superior articular process with RIGHT ala of the sacrum. With slight oblique fluoroscope, after injecting 5 mL of plain 1% lidocaine subcutaneously, a 18- gauge 100 mm radiofrequency cannula with a 10 mm active tip was introduced under tunnel vision of the fluoroscope at the junction of the superior articular process with L5 transverse process and junction of the superior articular process with the L4 transverse process Each site then underwent sensory testing with 50 Hz and 0-1 V and motor testing at 2.5 Hz and 0-3 V with local stimulation but no radicular symptoms down the leg. Thereafter each sites underwent radiofrequency thermocoagulation at 80C for 90 seconds after injecting 1 mL of preservative-free 0.5% ropivacaine. Repeat radiofrequency ablation was done at each points after rotating the needle 180 with same setting . In exactly same way, LEFT sided RFA were done at the following 3 points. Junction of the superior articular process with left ala of the sacrum, junction of the superior articular process with the left L5 transverse process, junction of the superior articular process with left L4 transverse process after needle position confirmation by AP, oblique, lateral view of the fluoroscope, negative CSF negative blood negative paresthesia, sensory and motor stimulations followed by injection of 1 mL of 0.5% ropivacaine. Radiofrequency ablation settings where same as the other side, and second lesion was done after rotating the needle 180. RF needles were taken out. At the end of the procedure the skin was cleansed and Band-Aids were applied. Disposition . Patient tolerated the procedure well. No complication. She was placed in supine position and transferred to the recovery area in stable condition for observation and was discharged home from recovery room after meeting discharge criteria. Discharge instructions given to the patient by the staff. The patient were examined prior to discharge the patient will schedule a follow-up in the clinic in 2-4 weeks.
[2023-06-29 13:34] VITALS: BP 92/55; PULSE 74
--- NOTE | 2023-06-29 14:01 | FL ---
EXAMINATION TYPE: FL guided pain mgmt statistic Intraoperative/procedural fluoroscopic services were provided. Total fluoroscopy time is 80.9 seconds with a total of 5 submitted images to PACS. Please s ee the operative/procedural note for further details. DAP: [id number] mGym2
== END 2023-06-29 13:18 | disposition home or self-care (01) ==
LOC: ORPAIN 11:27
PROVIDERS: ATTEND Pain Medicine Interventional Pain Medicine
DX: M47.816 Spondylosis without myelopathy or radiculopathy, lumbar region (principal); M51.36 Other intervertebral disc degeneration, lumbar region
CPT/HCPCS: 64635; 64636 ×2; J2250; J2001; J3010; J2795

== ENCOUNTER → 2023-07-23 | Outpatient (CLI) | payer BC ==
--- NOTE | 2023-07-23 14:37 | P.PAINPG ---
Objective - Vital Signs Vital signs: Intake & Output 07/22/23 07/23/23 07/23/23 18:59 06:59 18:59 Weight 67.132 kg PQRS Measure Charge Sheet Comment: A 58 yr old female with a history of severe and chronic neck pain secondary to lumbar DDD and spondylosis with facet arthropathy without myelopathy presents today for evaluation s/p BL RFA L4-L5, L5-S1. Pt states she experienced 95% pain relief s/p procedure. Pain level is provoked at 7 /10 in intensity, constant, localized in the lower lumbar spine, predominantly axial, stabbing in character w occasional shooting towards the tailbone. Pain is provoked by laying supine or on the R side. Pain is alleviated with PT x 6-8 wks in Feb 2023 (lumbar), physician guided home stretches 5 times weekly since Jan 2023 (cervical and lumbar), hydro-massages semi weekly x 3 wks w last visit in Dec 2022, massage therapy weekly w last visit in Dec 2022, heat, ice, medications, topical, repositioning and rest. Oswestry axial pain score of 26. Interventional pain procedures completed include TRA L4-L5 x1, C6-C7 x1, BL RFA L3-L5 (Jun 2023) Patient is currently on [place], Tyl, Ibu, Toradol Patient denies any side effects of the medication(s), denies excessive drowsiness or sleepiness, denies suicidal ideation and reports that the current pain medication is helping to control the pain and improve activities of daily living. Patient denies any motor or sensory deficits. Patient denies any fever or night sweats, denies any change in the bowel movements or urination. Physical Examination: -Constitutional: Cooperative. Not in acute distress . - Neurologic: Cranial nerve II to XII intact. No focal neurological de ficits. - Psychatric: Alert & oriented x 3. Matching mood & appropriate affect. Judgment and insight intact. - Musculoskeletal: Cervical spine: Muscle bulk/ tone/ strength in the bilateral upper extremities normal Vertebral body tenderness to palpation Spurling test positive Distraction test positive Facet loading test positive TTP Thoracic spine Muscle bulk / tone/ strength in the bilateral paraspinal muscles normal Vertebral body tender to palpation over Facet loading test positive TTP Lumbar spine: Motor bulk/ tone/ strength lower extremities , thigh and legs : 5/5 Deep tendon reflexes : Normal Knee Jerk. Normal Ankle Jerk . Vertebral body tenderness to palpation over Santos Test positive Lumbar Facet Loading Test over Straight Leg Raise: positive at 30 degrees right side/ left side Gaenslen's Test positive Sacral spine : Severe tenderness over the Sacroiliac joint: right side / left side Range of motion: Flexion of the lumbar spine <60 degrees Range of motion: Extension of the lumbar spine <20 degrees Gaenslen's Test positive right side > left side Janet test: positive right side > left side Thigh Thrust Test positive right side / left side Sacral Thrust Test positive right side / left side Imaging: MRI without contrast of the cervical spine from 08/23/22 reviewed Assessment and plan: Chronic LBP secondary to DDD, spondylosis with facet arthropathy without myelopathy Recommendation of BL SI injection. May need a series of injections for optimal pain relief. Risks, benefits of procedure discussed and pt verbalized understanding. Admits to anticoagulant use or medical history of diabetes. Protocol for discontinuation/ continuation of medications ki procedure discussed. Use, side effects, adverse reactions and safe storage discussed. All questions answered. I have spent less than 30 minutes on patient care today. Dr Hall was available by phone for the evaluation of this patient. The time was used to review the medical records including relevant urine studies and Prescription history (MAPs), review of the available imaging, evaluation and examination of the patient, coordination of care with the medical staff and if applicable referring physicians, as well as creation of the medical record PQRS Narrative: Smoking Status Never smoker Hx Alcohol Use (MH) No Home Medications: Ambulatory Orders Calcium Carbonate [Calcium] 600 mg PO QAM 05/26/21 Cholecalciferol [Vitamin D3 (25 Mcg = 1000 Iu)] 25 mcg PO QAM 05/26/21 Rosuvastatin [Crestor] 10 mg PO MOWEFR 04/25/22 Olumiant. Dose Unk 1 tab PO QAM 10/16/22 Lisinopril-Hctz 10-12.5 mg [Zestoretic 10-12.5] 1 tab PO QAM 02/16/23 [place] 1 tab PO DAILY 05/09/23 Controlled Substance Measures - Controlled Substance Measures Is patient prescribed a controlled substance at discharge?: No
[2023-07-23 14:45] VITALS: BP 138/88; PULSE 101; RESP 15; TEMP 98.6
== END ==
LOC: PNWHC3 14:01
PROVIDERS: ATTEND Specialist
DX: M51.36 Other intervertebral disc degeneration, lumbar region (principal); M47.816 Spondylosis without myelopathy or radiculopathy, lumbar region; G89.29 Other chronic pain; Z91.041 Radiographic dye allergy status
CPT/HCPCS: 99211

== ENCOUNTER 2023-08-09 11:42 | Day surgery (SDC) | payer BC ==
[2023-08-08 08:40] VITALS: BMI 28.3
[2023-08-09 11:57] VITALS: TEMP 97.3
[2023-08-09] MEDS ORDERED: ROPIVACAINE 5MG/ML 20ML VIAL ONE (12:50)
[2023-08-09] MEDS ORDERED: methylPREDNISolone ACETATE 80 MG/ML 1 ML VIAL ONE (12:50)
--- NOTE | 2023-08-09 13:00 | P.PCN ---
Date of Procedure: 08/09/23 Procedure(s) Performed: Procedure= bilateral sacroiliac joints steroid injection under fluoroscopy guidance (fluoroscopy image stored on file in the radiology Department ) Preoperative diagnosis= 1-sacroiliitis 2-lumbar degenerative disc disease 3- lumbar facet arthropathy Postoperative diagnosis=Same as preop Diagnosis . Complication = none Condition= stable Anesthesia= local anesthesia with ropivacaine 0.5% 4 ml only Indication for the procedure= patient complaining of low back pain , examination was positive for severe tenderness over the sacroiliac joints bilaterally and patient diagnosed with sacroiliitis, for this reason she was good candidate for sacroiliac joint steroid injection. Description of the procedure= procedure risk and benefits discussed with the patient, including but not limited, risk of infection and bleeding, and ALLERGIC reaction to the medication and not complete pain relief and patient agreed with the preceding patient taken to the operating room, placed in prone position or standard monitors applied to the patient then after induction of anesthesia back prepped with chlorhexidine 3 times , Then under strict sterile technique, first I did the right sacroiliac joint the which was identified under fluoroscopy guidance been local infiltration of the skin and subcu interstitial with lidocaine 1% then 22-gauge Quincke Needle advanced slowly under fluoroscopy and placed in the right sacroiliac joint needle placement confirmed with AP and oblique and lateral view, then after that Isovue 200 one mL injected which confirmed the correct needle placement with the appropriate arthrogram of the sacroiliac joint, and after appropriate needle placement confirmed and after negative aspiration, or heme , then Ropivacaine 0.5% 2 mL, and 40 mg of Depo-Medrol mixed together and injected in the right sacroiliac joint after negative aspiration patient tolerated the procedure well without any complication. Then the left sacroiliac joint steroid injection done under strict sterile technique local infiltration of the skin and subcu interstitial at the location of the left sacroiliac joint then a 22-gauge Quincke Needle advanced slowly under fluoroscopy time placed in the left sacroiliac joint, needle placement confirmed with AP and oblique and lateral view then after appropriate needle placement confirmed, with the AP and oblique and lateral then after negative aspiration Isovue 200 1 mL injected showed arthropathy of the left sacroiliac joint, and after negative aspiration 0.5% Ropivacaine 2 mL and 40 mg of Depo- Medrol injected in the left sacroiliac joint after negative aspiration patient tolerated the procedure well that any complications and she will follow up in clinic 3 weeks
[2023-08-09 13:26] VITALS: BP 111/79; PULSE 67; RESP 16
--- NOTE | 2023-08-09 18:50 | FL ---
EXAMINATION TYPE: FL guided pain mgmt statistic DATE OF EXAM: 08/09/2023 FLUOROSCOPY DAP [id number] mGycm2 [place] 4.2 sec TENZIN SI JOINTS 2 images submitted
== END 2023-08-09 13:20 | disposition home or self-care (01) ==
LOC: ORPAIN 11:42
PROVIDERS: ATTEND Anesthesiology
DX: M46.1 Sacroiliitis, not elsewhere classified (principal); M51.36 Other intervertebral disc degeneration, lumbar region; M47.816 Spondylosis without myelopathy or radiculopathy, lumbar region; Z91.041 Radiographic dye allergy status
CPT/HCPCS: 27096; J1040; J2795

== ENCOUNTER → 2023-09-05 | Outpatient (CLI) | payer BC ==
[2023-09-05 14:32] VITALS: BP 128/62; PULSE 70; RESP 15; TEMP 98.1
--- NOTE | 2023-09-05 15:11 | P.PAINPG ---
PQRS Measure Charge Sheet Comment: A 58 yr old female with a history of severe and chronic neck pain secondary to lumbar DDD and spondylosis with facet arthropathy without myelopathy presents today for evaluation s/p BL SI injection #1. Pt states she experienced 95% pain relief x 4 wks s/p procedure. Pain level is provoked at 1 /10 in intensity, constant, localized in the lower lumbar spine, predominantly axial, stabbing in character w occasional shooting towards the tailbone. Pain is provoked by laying supine or on the R side. Pain is alleviated with PT x 6-8 wks in Feb 2023 (lumbar), physician guided home stretches 5 times weekly since Jan 2023 (cervical and lumbar), hydro-massages semi weekly x 3 wks w last visit in Dec 2022, massage therapy weekly w last visit in Dec 2022, heat, ice, medications, topical, repositioning and rest. Oswestry axial pain score of 21. Interventional pain procedures completed include TRA L4-L5 x1, C6-C7 x1, BL RFA L3-L5 (Jun 2023), BL SI x1 (Aug 2023) Patient is currently on [place], Tyl, Ibu, Toradol Patient denies any side effects of the medication(s), denies excessive drowsiness or sleepiness, denies suicidal ideation and reports that the current pain medication is helping to control the pain and improve activities of daily living. Patient denies any motor or sensory deficits. Patient denies any fever or night sweats, denies any change in the bowel movements or urination. Physical Examination: -Constitutional: Cooperative. Not in acute distress . - Neurologic: Cranial nerve II to XII intact. No focal neurological deficits. - Psychatric: Alert & oriented x 3. Matching mood & appropriate affect. Judgment and insight intact. - Musculoskeletal: Cervical spine: Muscle bulk/ tone/ strength in the bilateral upper extremities normal Vertebral body tenderness to palpation Spurling test positive Distraction test positive Facet loading test positive TTP Thoracic spine Muscle bulk / tone/ strength in the bilateral paraspinal muscles normal Vertebral body tender to palpation over Facet loading test positive TTP Lumbar spine: Motor bulk/ tone/ strength lower extremities , thigh and legs : 5/5 Deep tendon reflexes : Normal Knee Jerk. Normal Ankle Jerk . Vertebral body tenderness to palpation over Santos Test positive Lumbar Facet Loading Test over Straight Leg Raise: positive at 30 degrees right side/ left side Gaenslen's Test positive Sacral spine : Severe tenderness over the Sacroiliac joint: right side / left side Range of motion: Flexion of the lumbar spine <60 degrees Range of motion: Extension of the lumbar spine <20 degrees Gaenslen's Test positive right side > left side Janet test: positive right side > left side Thigh Thrust Test positive right side / left side Sacral Thrust Test positive right side / left side Imaging: MRI without contrast of the cervical spine from 08/23/22 reviewed Assessment and plan: Chronic LBP secondary to DDD, spondylosis with facet arthropathy without myelopathy Will manage residual pain and may RTC on an as needed basis. All questions answered. I have spent less than 30 minutes on patient care today. Dr Hall was available by phone for the evaluation of this patient. The time was used to review the medical records including relevant urine studies and Prescription history (MAPs), review of the available imaging, evaluation and examination of the patient, coordination of care with the medical staff and if applicable referring physicians, as well as creation of the medical record PQRS Narrative: Smoking Status Never smoker Hx Alcohol Use (MH) No Home Medications: Ambulatory Orders Calcium Carbonate [Calcium] 600 mg PO QAM 05/26/21 Cholecalciferol [Vitamin D3 (25 Mcg = 1000 Iu)] 25 mcg PO QAM 05/26/21 Rosuvastatin [Crestor] 10 mg PO DIRECTED 04/25/22 Olumiant. Dose Unk 1 tab PO QAM 10/16/22 Lisinopril-Hctz 10-12.5 mg [Zestoretic 10-12.5] 1 tab PO QAM 02/16/23 Controlled Substance Measures - Controlled Substance Measures Is patient prescribed a controlled substance at discharge?: No
== END ==
LOC: PNWHC3 14:23
PROVIDERS: ATTEND Specialist
DX: M51.36 Other intervertebral disc degeneration, lumbar region (principal); M47.816 Spondylosis without myelopathy or radiculopathy, lumbar region; G89.29 Other chronic pain; Z91.041 Radiographic dye allergy status
CPT/HCPCS: 99211

== ENCOUNTER → 2023-11-12 | Outpatient (CLI) | payer BC ==
--- NOTE | 2023-11-12 11:58 | XR ---
EXAMINATION TYPE: XR chest 2V DATE OF EXAM: 11/12/2023 COMPARISON: 08/26/2021 HISTORY: 58-year-old female cough and shortness of breath TECHNIQUE: PA and lateral views FINDINGS: The cardiomediastinal silhouette, aorta, and pulmonary vasculature are within normal limits. Mild int erstitial prominence. Otherwise, lungs and pleural spaces are clear. IMPRESSION: Interstitial prominence could reflect bronchitis or asthma. Otherwise, no acute cardiopulmonary proce ss.
== END | disposition home or self-care (01) ==
LOC: LABMAIN 11:41
PROVIDERS: ATTEND Physician Assistant
DX: Z01.812 Encounter for preprocedural laboratory examination (principal); R05.9 Cough, unspecified; R06.02 Shortness of breath
CPT/HCPCS: 71046

== ENCOUNTER → 2024-05-20 | Outpatient (CLI) | payer BC ==
[2024-05-20 15:28] VITALS: BP 126/80; PULSE 71; RESP 17; TEMP 97.8
--- NOTE | 2024-05-20 16:19 | P.HPOB ---
History of Present Illness H&P Date: 05/20/24 Chief Complaint: The patient is here for her routine gynecologic exam and ma mmogram. This is a 59-year-old G5, P5 with an LMP of 2019. The patient is without gynecologic complaints and denies any postmenopausal bleeding. Review of Systems The patient has lost 26 pounds over the last year. She is done this with dietary changes and this has been intentional. She denies respiratory, cardiac, or G.I. problems. Past Medical History Past Medical History: Hypertension Additional Past Medical History / Comment(s): IBS, polymyalgia rheumatica. PAST SOURCER HISTORY: She has no history of STDs. History of Any Multi-Drug Resistant Organisms: None Reported Past Surgical History: Cholecystectomy, Hernia Repair, Orthopedic Surgery, Ton sillectomy Additional Past Surgical History / Comment(s): Lasik eye surgery, bilateral carpal tunnel release, cystoscopy, laparoscopic ovarian cystectomy 1989, colonoscopy 2019(next after 10yr), inguinal hernia, PAIN CLINIC PROCEDURE, abdominoplasty with repair of upper abdominal wall diastases, right shoulder surgery, R 5th finger injury with tendon repair. Past Anesthesia/Blood Transfusion Reactions: No Reported Reaction Past Psychological History: No Psychological Hx Reported Additional Psychological History / Comment(s): . Smoking Status: Never smoker Past Alcohol Use History: Occasional Past Drug Use History: None Reported Additional History: She has been since 1988 and works full-time for a group of ER physicians. - Past Family History Father Family Medical History: Myocardial Infarction ([place]) Additional Family Medical History / Comment(s): Great maternal aunt had breast cancer. Mother Family Medical History: Cancer Additional Family Medical History / Comment(s): Skin cancer. Medications and Allergies Home Medications Medication Instructions Recorded Confirmed Type Calcium Carbonate [Calcium] 600 mg PO QAM 05/26/21 05/20/24 History Cholecalciferol [Vitamin D3 (25 25 mcg PO QAM 05/26/21 05/20/24 History Mcg = 1000 Iu)] Olumiant. Dose Unk 1 tab PO QAM 10/16/22 05/20/24 History Lisinopril-Hctz 10-12.5 mg 1 tab PO QAM 02/16/23 05/20/24 History [Zestoretic 10-12.5] Allergies Allergy/AdvReac Type Severity Reaction Status Date / Time Iodinated Contrast Media Allergy hives Verified 05/20/24 15:25 [Iodinated Contrast Media - IV Dye] Exam Vital Signs Temp Pulse Resp BP Pulse Ox 05/20/24 15:25 97.8 F 71 17 126/80 98 Intake and Output 05/20/24 05/20/24 05/20/24 06:59 14:59 22:59 Other: Weight 61.689 kg Height 5 feet 1 inch, weight 136 pounds, BMI 25.7. This is a well-developed well-nourished white female who is alert and oriented times 3 in no acute distress. HEENT: Within normal limits. NECK: Supple without mass or thyromegaly. CHEST AND LUNGS: Clear to auscultation. HEART: Regular rate and rhythm. BREASTS: Are without mass or discharge. AXILLARY EXAM: Negative for adenopathy. BACK: Negative for CVA tenderness. ABDOMEN: Nontender, without palpable masses. The upper abdomen skin is somewhat taut since her abdominoplasty. The patient states this has not changed since then. The rest of the abdomen is soft. Abdomen is nondistended. PELVIC EXAM: Normal external genitalia with mild atrophy. Cervix and vagina appear normal with mild atrophy. There is no unusual discharge. There is no evidence of prolapse. The uterus is midposition, nongravid size and nontender. There are no palpable adnexal masses or tenderness. RECTAL EXAM: Rectovaginal exam is negative for mass or tenderness and is negative for occult blood. EXTREMITIES: Nontender. IMPRESSION: 1. 59-year-old menopausal female with normal gynecologic exam. 2. Intentional weight loss with dietary changes. PLAN: 1. Pap smear was deferred since she had a negative Pap smear cotest on 04/25/2022. 2. Self breast awareness was discussed with the patient. We have also discussed symptoms associated with inflammatory breast cancer. 3. Screening mammogram will be done today. 4. Osteoporosis prevention was discussed. I have stressed the importance of adequate calcium, vitamin D and regular exercise. Recommended amounts of calcium and vitamin D were also discussed. He did have a normal bone density test done in 2017. Will plan on repeating the bone density test in 1 year at age 60. 5. She was advised to return in one year for her annual well woman exam.
--- NOTE | 2024-05-21 12:13 | MM ---
Reason for Exam: Screening (asymptomatic). Last screening mammogram was performed 12 month(s) ago. Patient History: Menarche at age 12. First Full-Term at age 26. Postmenopausal. Patient has history of breast feeding. Hormonal Contraceptives, starting at age 38 for 6 years, 1 month. Maternal aunt had breast cancer. Maternal aunt had breast cancer. Risk Values: Susan 5 year model risk: 1.5%. NCI Lifetime model risk: 8.3%. Prior Study Comparison: 03/29/2021 Bilateral Screening Mammogram, [facility]. 04/25/2022 Bilateral MG 3D screening mammo w/cad, [facility]. 05/09/2023 Bilateral MG 3D screening mammo w/cad, [facility]. Tissue Density: There are scattered areas of fibroglandular density. Findings: Analyzed By CAD. Right breast: There is no suspicious group of microcalcifications or new suspicious mass. Benign-appearing calcifications right breast. Left breast: There is no suspicious group of microcalcifications or new suspicious mass. Overall Assessment: Benign, BI-RAD 2 Management: Screening Mammogram of both breasts in [address] [facility] will attempt to contact patient to return for supplemental views and ultrasound if indicated. Patient should continue monthly self-breast exams. A clinical breast exam by your physician is recommended on an annual basis. This exam should not preclude additional follow-up of suspicious palpable abnormalities. Note on Susan scores and lifetime risk: 1. A Susan score greater than 3% is considered moderate risk. If this is the case, consider specialist referral to assess eligibility for a risk reducing agent. 2. If overall lifetime risk for the development of breast cancer is 20% or higher, the patient may qualify for future screening with alternating mammogram and breast MRI. [facility], , 05/21/2024 12:10 PM. Electronically signed and approved by: Tomy Jorge DO
== END ==
LOC: WWCWWP 15:17
PROVIDERS: ATTEND Obstetrics & Gynecology
DX: Z12.31 Encounter for screening mammogram for malignant neoplasm of breast (principal); Z91.041 Radiographic dye allergy status; Z80.3 Family history of malignant neoplasm of breast
CPT/HCPCS: 77063; 77067

== ENCOUNTER 2024-08-27 08:31 | Emergency (ER) | payer BC ==
[2024-08-27 08:38] VITALS: RESP 18
[2024-08-27] MEDS: methylPREDNISolone SOD SUCCI 125 MG/2 ML VIAL IV STA (08:45)
[2024-08-27] MEDS: diphenhydrAMINE 50 MG/ML 1 ML VIAL IVP STA (08:45)
[2024-08-27] MEDS: FAMOTIDINE 20 MG/2 ML VIAL IV STA (08:45)
--- NOTE | 2024-08-27 08:46 | ED ---
ENT HPI - General Chief complaint: ENT Stated complaint: L ear/facial pain Time Seen by Provider: 08/27/24 08:39 Source: patient, RN notes reviewed Mode of arrival: ambulatory Limitations: no limitations - History of Present Illness Initial comments: This is a 59-year-old female who presents to the emergency department with neck pain. States that she has been dealing with what she believes to be a left- sided trigeminal neuralgia. However this has started to cause heaviness and some discomfort on the left side of her neck and she has noticed some swelling versus a lump near the region of the sternoclavicular joint. States that if she lays on that side she feels like the hearing might become somewhat muffled. This is also starting to cause some heaviness down the left arm. - Related Data Home Medications Medication Instructions Recorded Confirmed Calcium Carbonate [Calcium] 600 mg PO QAM 05/26/21 05/20/24 Cholecalciferol [Vitamin D3 (25 25 mcg PO QAM 05/26/21 05/20/24 Mcg = 1000 Iu)] Olumiant. Dose Unk 1 tab PO QAM 10/16/22 05/20/24 Lisinopril-Hctz 10-12.5 mg 1 tab PO QAM 02/16/23 05/20/24 [Zestoretic 10-12.5] Allergies Allergy/AdvReac Type Severity Reaction Status Date / Time Iodinated Contrast Media Allergy hives Verified 08/27/24 08:38 [Iodinated Contrast Media - IV Dye] Review of Systems ROS Statement: Those systems with pertinent positive or pertinent negative responses have been documented in the HPI. ROS Other: All systems not noted in ROS Statement are negative. Past Medical History Past Medical History: Hypertension Additional Past Medical History / Comment(s): IBS, polymyalgia rheumatica. PAST SCALE AGENT HISTORY: She has no history of STDs. History of Any Multi-Drug Resistant Organisms: None Reported Past Surgical History: Cholecystectomy, Hernia Repair, Orthopedic Surgery, Tonsillectomy Additional Past Surgical History / Comment(s): Lasik eye surgery, bilateral carpal tunnel release, cystoscopy, laparoscopic ovarian cystectomy 1989, colonoscopy 2019(next after 10yr), inguinal hernia, PAIN CLINIC PROCEDURE, abdominoplasty with repair of upper abdominal wall diastases, right shoulder surgery, R 5th finger injury with tendon repair. Past Anesthesia/Blood Transfusion Reactions: No Reported Reaction Past Psychological History: No Psychological Hx Reported Smoking Status: Never smoker Past Alcohol Use History: Occasional Past Drug Use History: None Reported - Past Family History Father Family Medical History: Myocardial Infarction ([place]) Additional Family Medical History / Comment(s): Great maternal aunt had breast cancer. Mother Family Medical History: Cancer Additional Family Medical History / Comment(s): Skin cancer. General Exam Limitations: no limitations General appearance: alert, in no apparent distress Head exam: Present: atraumatic, normocephalic, normal inspection ENT exam: Present: TM's normal bilaterally, normal external ear exam Neck exam: Present: full ROM, other (Minor left-sided neck tenderness. Minor swelling over the left sternoclavicular joint with overlying tenderness.) Respiratory exam: Present: normal lung sounds bilaterally. Absent: respiratory distress, wheezes, rales, rhonchi, stridor Cardiovascular Exam: Present: regular rate, normal rhythm Neurological exam: Present: alert, oriented X3, CN II-XII intact Psychiatric exam: Present: normal affect, normal mood Skin exam: Present: warm, dry, intact, normal color. Absent: rash Course Vital Signs 08/27/24 08/27/24 08/27/24 08:34 10:19 10:51 Temperature 99.3 F 98.6 F Pulse Rate 89 78 Respiratory 18 18 Rate Blood Pressure 131/98 155/78 O2 Sat by Pulse 97 99 Oximetry Medical Decision Making - Medical Decision Making This is a 59-year-old female who presents to the emergency department for left- sided neck pain. Was pt. sent in by a medical professional or institution? @ -No Did you speak to anyone other than the patient for history? @ -No Did you review nursing and triage notes? @ -Yes, and I agree, it is accurate with regards to the patient's symptoms. Were old charts reviewed? @ -No Differential Diagnosis? @ -Differential Neck Pain: Fracture, dislocation, contusion, strain, DDD, disc herniation, this is not meant to be an all-inclusive list. EKG interpreted by me (3pts min.)? @ -EKG interpreted by me demonstrating the following: Sinus rhythm. Ventricular rate 80 bpm, AL interval 158 ms, QRS duration 92 ms, QTc 397 ms. X-rays interpreted by me (1pt min.)? @ -Not obtained CT interpreted by me (1pt min.)? @ -CT scan of the soft tissue neck obtained. My interpretation identifies no evidence of any masses. U/S interpreted by me (1pt. min.)? @ -Not obtained What testing was considered but not performed? (CT, X-rays, U/S, labs)? Why? @ -None What meds were considered but not given? Why? @ -None Did you discuss the management of the patient with other professionals? @ -No Did you reconcile home meds? @ -No Was smoking cessation discussed for >3mins.? @ -No Was critical care preformed (if so, how long)? @ -No Were there social determinants of health that impacted care today? How? (Homelessness, low income, unemployed, alcoholism, drug addiction, transportation, low edu. Level, literacy, decrease access to med. care, usp, rehab)? @ -No Was there de-escalation of care discussed even if they declined? (Discuss DNR or withdrawal of care, Hospice)? @ -No What co-morbidities impacted this encounter? (DM, HTN, Smoking, COPD, CAD, Cancer, CVA, Hep., AIDS, mental health diagnosis, sleep apnea, morbid obesity)? @ -None Was patient admitted / discharged? @ -Discharged. Given that she was starting to experience left arm heaviness a nd mild radiation of pain into the chest we did proceed with a cardiac workup as well including lab work and an EKG. Lab work unremarkable. Troponin negative. CT scan of the soft tissue neck obtained. No acute process was identified to account for her symptoms. Patient discharged home in stable condition and advised to follow up with her PCP. Case discussed with ED attending, Dr. Wilson. Return precautions reviewed in depth, the patient is instructed to return to the emergency department with any new, worsening, or concerning symptoms. Patient verbalized understanding. Undiagnosed new problem with uncertain prognosis? @ -None Drug Therapy requiring intensive monitoring for toxicity (Heparin, Nitro, Insulin, Cardizem)? @ -None Were any procedures done? @ -None Diagnosis/symptom? @ -Trigeminal neuralgia, left-sided neck pain Acute, or Chronic, or Acute on Chronic? @ -Acute Uncomplicated (without systemic symptoms) or Complicated (systemic symptoms)? @ -Uncomplicated Side effects of treatment? @ -None Exacerbation, Progression, or Severe Exacerbation] @ -Not applicable Poses a threat to life or bodily function? @ -No - Lab Data Result diagrams: 08/27/24 09:12 08/27/24 09:12 Lab Results 08/27/24 08/27/24 08/27/24 Range/Units 09:12 09:12 09:12 WBC 6.3 (3.8-10.6) k/uL RBC 3.51 L (3.80-5.40) m/uL Hgb 11.2 L (11.4-16.0) gm/dL Hct 33.4 L (34.0-46.0) % MCV 95.1 (80.0-100.0) fL MCH 31.9 (25.0-35.0) pg MCHC 33.5 (31.0-37.0) g/dL RDW 12.8 (11.5-15.5) % Plt Count 326 (150-450) k/uL MPV 7.3 Neutrophils % 61 % Lymphocytes % 27 % Monocytes % 8 % Eosinophils % 1 % Basophils % 0 % Neutrophils # 3.9 (1.3-7.7) k/uL Lymphocytes # 1.7 (1.0-4.8) k/uL Monocytes # 0.5 (0-1.0) k/uL Eosinophils # 0.1 (0-0.7) k/uL Basophils # 0.0 (0-0.2) k/uL PT 10.7 (10.0-12.5) sec INR 1.0 (<1.2) APTT 23.4 (22.0-30.0) sec Sodium 132 L (137-145) mmol/L Potassium 4.1 (3.5-5.1) mmol/L Chloride 104 (98-107) mmol/L Carbon Dioxide 22 (22-30) mmol/L Anion Gap 6 mmol/L BUN 15 (7-17) mg/dL Creatinine 0.86 (0.52-1.04) mg/dL Est GFR (CKD-EPI)AfAm 86 (>60 ml/min/1.73 sqM) Est GFR (CKD-EPI)NonAf 75 (>60 ml/min/1.73 sqM) Glucose 99 (74-99) mg/dL Calcium 8.8 (8.4-10.2) mg/dL Magnesium 1.7 (1.6-2.3) mg/dL Total Bilirubin 0.6 (0.2-1.3) mg/dL AST 19 (14-36) U/L ALT 12 (4-34) U/L Alkaline Phosphatase 40 (38-126) U/L Troponin I (0.000-0.034) ng/mL Total Protein 5.7 L (6.3-8.2) g/dL Albumin 3.3 L (3.5-5.0) g/dL TSH (0.465-4.680) mIU/L 08/27/24 08/27/24 Range/Units 09:12 09:27 WBC (3.8-10.6) k/uL RBC (3.80-5.40) m/uL Hgb (11.4-16.0) gm/dL Hct (34.0-46.0) % MCV (80.0-100.0) fL MCH (25.0-35.0) pg MCHC (31.0-37.0) g/dL RDW (11.5-15.5) % Plt Count (150-450) k/uL MPV Neutrophils % % Lymphocytes % % Monocytes % % Eosinophils % % Basophils % % Neutrophils # (1.3-7.7) k/uL Lymphocytes # (1.0-4.8) k/uL Monocytes # (0-1.0) k/uL Eosinophils # (0-0.7) k/uL Basophils # (0-0.2) k/uL PT (10.0-12.5) sec INR (<1.2) APTT (22.0-30.0) sec Sodium (137-145) mmol/L Potassium (3.5-5.1) mmol/L Chloride (98-107) mmol/L Carbon Dioxide (22-30) mmol/L Anion Gap mmol/L BUN (7-17) mg/dL Creatinine (0.52-1.04) mg/dL Est GFR (CKD-EPI)AfAm (>60 ml/min/1.73 sqM) Est GFR (CKD-EPI)NonAf (>60 ml/min/1.73 sqM) Glucose (74-99) mg/dL Calcium (8.4-10.2) mg/dL Magnesium (1.6-2.3) mg/dL Total Bilirubin (0.2-1.3) mg/dL AST (14-36) U/L ALT (4-34) U/L Alkaline Phosphatase (38-126) U/L Troponin I <0.012 (0.000-0.034) ng/mL Total Protein (6.3-8.2) g/dL Albumin (3.5-5.0) g/dL TSH 1.240 (0.465-4.680) mIU/L - Radiology Data Radiology results: report reviewed, image reviewed Disposition Clinical Impression: Trigeminal neuralgia of left side of face, Neck pain on left side Disposition: HOME SELF-CARE Instructions (If sedation given, give patient instructions): Trigeminal Neuralgia (ED) Additional Instructions: Return to the emergency department with any new, worsening, or concerning symptoms. Follow up with your primary care provider in 1-2 days. Is patient prescribed a controlled substance at d/c from ED?: No Referrals: Jon Kwon DO [Primary Care Provider] - 1-2 days Time of Disposition: 10:48
--- NOTE | 2024-08-27 09:24 | CT ---
EXAMINATION TYPE: CT soft tissue neck w con CT DLP: 283.1 mGycm, Automated exposure control for dose reduction was used. DATE OF EXAM: 08/27/2024 9:16 AM COMPARISON: None. CLINICAL INDICATION:Female, 59 years old with history of Neck pain and swelling; PHH, Neck pain and s welling TECHNIQUE: Standard enhanced CT of the neck following intravenous administration of 100 cc of Isovue 300. Axial sections with coronal and sagittal reformats were obtained. FINDINGS: Brain: Visualized portions are grossly unremarkable. Orbits: Unremarkable Sinuses: Grossly unremarkable. Suprahyoid Neck: The oropharynx, oral cavity, parapharyngeal and retropharyngeal spaces are clear and symmetric. The nasopharynx is unremarkable. Infrahyoid Neck: The larynx, hypopharynx, and supraglottic area are clear and symmetric. Parotid Glands: Unremarkable. Submandibular Glands: Unremarkable. Musculoskeletal: No acute osseous pathology. No aggressive osseous lesion. Degenerative disc disease at C5-C6. Lymph nodes: No enlarged lymph nodes are identified.. Vascular structures: Minimal atherosclerotic calcifications of the internal carotid arteries. Thoracic Inlet/airway: Airway is patent. The lung apices are clear. Soft tissues/Thyroid: Thyroid and remainder of the soft tissues are unremarkable. Other: No abnormality identified at left clavicular region marker. IMPRESSION No CT abnormality to explain patient's symptomatology. No abnormality identified at left clavicular r egion marker. [facility], , 08/27/2024 9:22 AM
[2024-08-27 09:30] LABS: Partial Thromboplastin Time 23.4 sec (22.0-30.0); Prothrombin Time 10.7 sec (10.0-12.5)
[2024-08-27 09:32] LABS: Basophils % (A) 0 %; Eosinophils # (A) 0.1 k/uL (0-0.7); Eosinophils % (A) 1 %; HCT 33.4 % (34.0-46.0); HGB 11.2 gm/dL (11.4-16.0); Lymphocytes # (A) 1.7 k/uL (1.0-4.8); Lymphocytes % (A) 27 %; MCH 31.9 pg (25.0-35.0); MCHC 33.5 g/dL (31.0-37.0); MCV 95.1 fL (80.0-100.0); Mean Platelet Volume 7.3; Monocytes # (A) 0.5 k/uL (0-1.0); Monocytes % (A) 8 %; Neutrophils # (A) 3.9 k/uL (1.3-7.7); Neutrophils % (A) 61 %; Platelet Count 326 k/uL (150-450); RBC 3.51 m/uL (3.80-5.40); RDW 12.8 % (11.5-15.5); WBC 6.3 k/uL (3.8-10.6)
[2024-08-27 09:42] LABS: ALT 12 U/L (4-34); AST 19 U/L (14-36); African American GFR (CKD) 86 (>60 ml/min/1.73 sqM); Albumin 3.3 g/dL (3.5-5.0); Alkaline Phosphatase 40 U/L (38-126); Anion Gap 6 mmol/L; Blood Urea Nitrogen 15 mg/dL (7-17); Calcium 8.8 mg/dL (8.4-10.2); Carbon Dioxide 22 mmol/L (22-30); Chloride 104 mmol/L (98-107); Glucose 99 mg/dL (74-99); Magnesium 1.7 mg/dL (1.6-2.3); Non-African American GFR(CKD) 75 (>60 ml/min/1.73 sqM); Potassium 4.1 mmol/L (3.5-5.1); Sodium 132 mmol/L (137-145); Total Bilirubin 0.6 mg/dL (0.2-1.3); Total Protein 5.7 g/dL (6.3-8.2)
[2024-08-27] MEDS: SODIUM CHLORIDE 0.9% 1,000 ML IV ONE (09:46)
[2024-08-27 10:19] VITALS: BP 155/78; PULSE 78
[2024-08-27 10:52] VITALS: TEMP 98.6
== END 2024-08-27 10:52 | disposition home or self-care (01) ==
LOC: EC 08:31
DX: G50.0 Trigeminal neuralgia (principal); M54.2 Cervicalgia; Z91.041 Radiographic dye allergy status
CPT/HCPCS: 36415; 93005; 80053; 84443; 83735; 84484; 85025; 85610; 85730; 70491; 99284; 96374; 96375 ×2; 96361; J1200; J3490; Q9967; J2919